=== PATIENT | female | born 1990 | race Caucasian/White ===

== ENCOUNTER 2023-01-20 08:31 | Outpatient (OUT) | payer BC, SELFPAY | END 2023-01-20 08:32 | disposition home or self-care (01) | LOC: PST 08:31 | PROVIDERS: Visit Provider Surgery | DX: Z01.818 Encounter for other preprocedural examination (principal); K64.4 Residual hemorrhoidal skin tags ==

== ENCOUNTER 2023-01-21 10:22 | Day surgery (SDC) | payer BC, SELFPAY ==
--- NOTE | 2023-01-21 | OP_ITS ---
OPERATION DATE: ??01/21/2023 PREOPERATIVE DIAGNOSIS:? Irritated, elongated anal skin tag. POSTOPERATIVE DIAGNOSIS:? Irritated, elongated anal skin tag. PROCEDURE:? Excisional biopsy irritated anal skin tag. SURGEON:? Brain James M.D. ANESTHESIA:? Local with 0.5% Marcaine plain. ESTIMATED BLOOD LOSS:? Less than 1 mL. INDICATIONS AND CONSENT:? Patient is a 32-year-old female with a long history of irritated, elongated anal skin tag.? Indications, risks, benefits, alternatives of proceeding with incision under local anesthesia were explained extensively to the patient, including the risks of bleeding, infection, scarring, pain, recurrent and need for further surgery.? All of her questions were answered.? Informed consent was obtained.? PROCEDURE:? Patient was brought to the operating room, placed in the right lateral decubitus position.? The area was prepped and draped in the usual sterile fashion.? It was anesthetized with 0.5% Marcaine plain.? The area was excised with needle tip electrocautery.? The base was closed with a 3-0 chromic suture.? There was good hemostasis.? Patient tolerated procedure well, was discharged home in good condition. CC:? Patient?s family physician GLORIA
[2023-01-21 10:42] VITALS: BP 159/91; PULSE 83; RESP 18; TEMP 36.4; O2SAT 95
[2023-01-21 12:02] VITALS: BP 119/79; BP 124/58; PULSE 70; PULSE 78; RESP 18; O2SAT 96
[2023-01-21] MEDS: BUPIVACAINE HCL 0.5% PF 50 MG/10 ML VIAL INJ (12:13)
== END 2023-01-21 12:14 | disposition home or self-care (01) ==
PROVIDERS: PCP Family Medicine; Visit Provider Surgery
PROC: (CPT 46220; principal; 2023-01-21 11:05)
DX: K64.4 Residual hemorrhoidal skin tags (principal); K21.9 Gastro-esophageal reflux disease without esophagitis; E03.9 Hypothyroidism, unspecified; E66.01 Morbid (severe) obesity due to excess calories; Z68.43 Body mass index [BMI] 50.0-59.9, adult; G47.33 Obstructive sleep apnea (adult) (pediatric); E11.9 Type 2 diabetes mellitus without complications; I10 Essential (primary) hypertension; M47.816 Spondylosis without myelopathy or radiculopathy, lumbar region; Z79.84 Long term (current) use of oral hypoglycemic drugs
CPT/HCPCS: 46220; 88304

== ENCOUNTER 2023-03-08 02:52 | Emergency (ER) | payer BC, SELFPAY ==
[2023-03-08 02:56] VITALS: BP 142/91; PULSE 104; RESP 18; TEMP 37.1; O2SAT 98; BMI 52.2
--- NOTE | 2023-03-08 03:01 | XR_ITS ---
[place] [id number] Patient Name: MURALI EMERSON MRN: [id number] date: 1990 Sex: F Assigned Patient Location: ER Current Patient Location: ER Accession/Order Number: [id number] Exam Date: 03/08/2023 03:05 Report Date: 03/08/2023 05:35 At the request of: CHIP CANDELARIA Procedure: XR chest 1V EXAM: XR chest 1V HISTORY: cough . Dyspnea since . COMPARISON: Chest x-ray, 11/05/2020. TECHNIQUE: AP upright portable chest x-ray. FINDINGS: The heart, mediastinum, lungs and pleural spaces appear within normal limits. The bony thorax is intact. XR/XR chest 1V IMPRESSION: Nonacute chest. No significant change. Electronically authenticated by: SUNDAR VARGHESE Date: 03/08/2023 05:35
--- OUTSIDE RECORDS SUMMARY | 2023-03-08 03:02 | XMS_ITS | CCD ---
Author Name Unknown Address [address] [place] [address] Organization [facility] Care Team Providers Care Oil Lease Buyer Name Role Phone Deedee Mariano Unavailable ROGELIO ., DR JERAMY Medina Admitting Unavailable MERCADO ., DR JERAMY Medina Attending Unavailable MERCADO ., DR JERAMY Medina Primary Care Unavailable MERCADO ., DR JERAMY Medina Primary Care Unavailable CHIP CANDELARIA Admitting Unavailable CHIP CANDELARIA Attending Unavailable CHIP CANDELARIA Consulting Unavailable MAYRA OCHOA Consulting Unavailable MERCADO ., DR JERAMY Medina Primary Care Unavailable GRIS, DR CHINA Pete Admitting Unavailable GRIS, DR CHINA Pete Attending Unavailable GRIS, DR CHINA Pete Consulting Unavailable MERCADO ., DR JERAMY Medina Admitting Unavailable MERCADO ., DR JERAMY Medina Attending Unavailable MERCADO ., DR JERAMY Medina Primary Care Unavailable MERCADO ., DR JERAMY Medina Consulting Unavailable MERCADO ., DR JERAMY Medina Admitting Unavailable MERCADO ., DR JERAMY Medina Attending Unavailable MERCADO ., DR JERAMY Medina Primary Care Unavailable MERCADO ., DR JERAMY Medina Consulting Unavailable Thiago Gambino. Primary Care Physician Thiago Gambino Attending Unavailable Thiago Gambino. Attending Unavailable Thiago Gambino. Attending Unavailable Thiago Gambino Attending Unavailable Thiago Gambino. Attending Unavailable Thiago Gambino. Attending Unavailable Thiago Gambino. Attending Unavailable Thiago Gambino Attending Unavailable Thiago Gambino Admitting Unavailable Brain TILLEY Attending Unavailable Brain TILLEY Attending Unavailable Thiago Gambino Attending Unavailable Allergies Allergy Classification Reported Allergen(s) Allergy Type Date of Onset Reaction(s) Facility (1 source) Amoxicillin Drug Allergy rash [employer] Other (2 sources) Amoxicillin Drug Allergy 03-06-201 4 [facility] Repository (2 sources) Penicillin; Translations: [penicillin] Drug Allergy Unknown (qualifier value) [facility] Medications Current Medications Medication Drug Class(es) Dates Sig (Normalized) Sig (Original) busPIRone hydrochloride 5 mg oral tablet (1 source) Start: 08-19-2022 take 1 tablet by mouth three times daily as needed for anxiety busPIRone 5 mg Tab See Instructions, TAKE 1 TABLET BY MOUTH 3 TIMES A DAY NEEDED FOR ANXIETY, # 90 tab(s), Refills(s) 0, Pharmacy: [id number], 180.3, cm, 06/23/22 16:07:00 EDT, Height/Length Dosing, 208.7, kg, 06/23/22 16:07:00 EDT, Weight Dosing Start Date: 08/19/22 Status: Ordered dapagliflozin 5 mg oral tablet (2 sources) Sodium-Glucose Cotransporter 2 Inhibitor Start: 09-02-2022 take 1 tablet by mouth once daily Farxiga 5 mg oral tablet See Instructions, TAKE 1 TABLET BY MOUTH EVERY DAY, # 90 tab(s), Refills(s) 1, Pharmacy: [facility]/pharmacy #[id number], 180.3, cm, 08/21/22 15:16:00 EDT, Height/Length Dosing, 208.7, kg, 06/23/22 16:07:00 EDT, Weight Dosing Start Date: 09/02/22 Status: Ordered Farxiga Active gabapentin 100 mg oral capsule (2 sources) Anti-epileptic Agent Start: 06-20-2022 take 1 capsule by mouth at bedtime gabapentin 100 mg Cap 100 mg = 1 cap(s), Oral, Bedtime, Refills(s) 0 Start Date: 06/20/22 Status: Ordered Gabapentin Activ e Knee Brace (1 source) Start: 09-16-2022 Knee Brace Kne e Brace, See Instructions, 1 EA, 0, L knee brace for knee pain, [facility], Supply, 180.3, cm, 09/16/22 9:08:00 EDT, Height/Length Dosing, 216.4, kg, 09/16/22 9:08:00 EDT, Weight Dosing Start Date: 09/16/22 Status: Ordered levothyroxine sodium 0.1 mg oral tablet (2 sources) l-Thyroxi ne Start: 10-08-2022 take 1 tablet by mouth once daily in the morning levothyroxine 100 mcg (0.1 mg) Tab See Instructions, TAKE 1 TABLET BY MOUTH EVERY DAY IN THE MORNING, # 90 tab(s), Refills(s) 3, Pharmacy: [id number], 180.3, cm, 09/16/22 9:08:00 EDT, Height/Length Dosing, 216.4, kg, 09/16/22 9:08:00 EDT, Weight Dosing Start Date: 10/08/22 Status: Ordered Levothyroxine So dium Active losartan potassium 50 mg oral tablet (1 source) Angiotensin 2 Receptor Deni Start: 09-02-2022 take 1 tablet by mouth once daily losartan 50 mg Tab 50 mg = 1 tab(s), Oral, Daily, # 90 tab(s), Refills(s) 1, [id number], 180.3, cm, 08/21/22 15:16:00 EDT, Height/Length Dosing, 208.7, kg, 06/23/22 16:07:00 EDT, Weight Dosing Start Date: 09/02/22 Status: Ordered metFORMIN hydrochloride 500 mg oral tablet (1 source) Biguanide Start: 09-22-2022 take 1 tablet by mouth twice daily metformin 500 mg Tab See Instructions, TAKE 1 TABLET BY MOUTH TWICE A DAY, # 180 tab(s), Refills(s) 0, Pharmacy: [id number], 180.3, cm, 09/16/22 9:08:00 EDT, Height/Length Dosing, 216.4, kg, 09/16/22 9:08:00 EDT, Weight Dosing Start Date: 09/22/22 Status: Ordered 24 hr metoprolol succinate 25 mg extended release oral tablet (2 sources) beta-Adrenergic Deni Start: 09-02-2022 take 1 tablet by mouth once daily metoprolol 25 mg ER Tab 25 mg = 1 tab(s), Oral, Daily, # 90 tab(s), Refills(s) 1, Pharmacy: [facility]/pharmacy #[id number], 180.3, cm, 08/21/22 15:16:00 EDT, Height/Length Dosing, 208.7, kg, 06/23/22 16:07:00 EDT, Weight Dosing Start Date: 09/02/22 Status: Ordered Metoprolol Succi rubén Active omeprazole 40 mg delayed release oral capsule (1 source) Proton Pump Inhibitor Start: 11-03-2022 take 1 capsule by mouth twice daily omeprazole 40 mg Cap-DR See Instructions, TAKE 1 CAPSULE BY MOUTH TWICE A DAY, # 180 cap(s), Refills(s) 0, Pharmacy: [id number] [id number], 180.3, cm, 10/16/22 15:30:00 EDT, Height/Length Dosing, 204.5, kg, 10/16/22 15:30:00 EDT, Weight Dosing Start Date: 11/03/22 Status: Ordered Ozempic (1 source) Ozempic Active phentermine hydrochloride 37.5 mg oral capsule (1 source) Sympathomimetic Amine Anorectic Start: 12-24-2022 take 1 capsule by mouth once daily Adipex-P 37.5 mg oral capsule 37.5 mg = 1 cap(s), Oral, Daily, # 30 cap(s), Refills(s) 2, Pharmacy: [facility] #[id number], 180.3, cm, 12/24/22 15:26:00 EDT, Height/Length Dosing, 183.3, kg, 12/24/22 15:26:00 EDT, Weight Dosing Start Date: 12/24/22 Status: Ordered Potassium (1 source) Potassium Active traZODone hydrochloride 50 mg oral tablet (1 source) Serotonin Reuptake Inhibitor Start: 11-11-2022 take 0.5 tablet by mouth once daily at bedtime traZODONE 50 mg Tab See Instructions, TAKE 1/2 TABLET BY MOUTH ONCE A DAY AT BEDTIME, # 15 tab(s), Refills(s) 0, Pharmacy: [id number] [id number], 180.3, cm, 10/16/22 15:30:00 EDT, Height/Length Dosing, 204.5, kg, 10/16/22 15:30:00 EDT, Weight Dosing Start Date: 11/11/22 Status: Ordered 24 hr venlafaxine 150 mg extended release oral capsule (2 sources) Serotonin and Norepinephrine Reuptake Inhibitor Start: 08-28-2022 take 1 capsule by mouth once daily venlafaxine 150 mg Cap-ER 150 mg = 1 cap(s), Oral, Daily, # 90 cap(s), Refills(s) 1, Pharmacy: [facility]/pharmacy #[id number], 180.3, cm, 08/21/22 15:16:00 EDT, Height/Length Dosing, 208.7, kg, 06/23/22 16:07:00 EDT, Weight Dosing Start Date: 08/28/22 Status: Ordered Effexor Active Problems Active Problems Problem Classification Problem Date Documented Date Episodic/Chronic Abdominal hernia (1 source) Umbilical hernia 12-24-2022 Episodic Abdominal pain (4 sources) Unspecified abdominal pain; Translations: [UNSPECIFIED ABDOMINAL PAIN] Onset: 06-11-2022 Episodic Adjustment disorders (1 source) Adjustment disorder with depressed mood in remission 06-20-2022 Chronic Diabetes mellitus without complication (1 source) Type 2 diabetes mellitus without complication; Translations: [Type 2 diabetes mellitus without complications] 08-21-2022 Chronic Esophageal disorders (1 source) Gastroesophageal reflux disease without esophagitis; Translations: [Gastro-esophageal reflux disease without esophagitis] 06-23-2022 Chronic Essential hypertension (1 source) Essential hypertension 06-23-2022 Chronic Headache; including migraine (1 source) Migraine 06-20-2022 Chronic Hemorrhoids (3 sources) Residual hemorrhoidal skin tags; Translations: [Residual hemorrhoidal skin tags] Onset: 12-26-2022 Episodic Hepatitis (1 source) Nonalcoholic steatohepatitis 06-20-2022 Chronic Immunizations and screening for infectious disease (2 sources) Contact with and (suspected) exposure to other viral communicable diseases; Translations: [Contact with and (suspected) exposure to other viral communicable diseases] Episodic Mood disorders (1 source) Major depressive disorder, single episode, unspecified; Translations: [MERCED DEPRESS D/O SINGLE EPIS UNS] Onset: 07-18-2021 Chronic Mycoses (1 source) Pityriasis versicolor 06-20-2022 Episodic Other connective tissue disease (1 source) Achilles tendinitis 06-20-2022 Episodic Other nervous system disorders (1 source) Carpal tunnel syndrome 06-20-2022 Chronic Other nutritional; endocrine; and metabolic disorders (1 source) Morbid (severe) obesity due to excess calories; Translations: [MORBID SEVERE OBES D/T EXCESS RYAN] Onset: 07-18-2021 Chronic Other nutritional; endocrine; and metabolic disorders (1 source) Body mass index (BMI) 60.0-69.9, adult; Translations: [BODY MASS INDEX BMI 60.0-69.9 ADULT] Onset: 07-18-2021 Chronic Other nutritional; endocrine; and metabolic disorders (2 sources) Body mass index 40+ - severely obese; Translations: [Body mass index (BMI) 50.0-59.9, adult] Onset: 12-26-2022 Chronic Other nutritional; endocrine; and metabolic disorders (1 source) Calorie overload 10-16-2022 Chronic Other nutritional; endocrine; and metabolic disorders (1 source) Metabolic syndrome X 06-20-2022 Chronic Other nutritional; endocrine; and metabolic disorders (1 source) Morbid obesity 06-20-2022 Chronic Residual codes; unclassified (1 source) Obstructive sleep apnea syndrome 06-20-2022 Chronic Residual codes; unclassified (1 source) Insomnia 10-16-2022 Episodic Spondylosis; intervertebral disc disorders; other back problems (1 source) Lumbar spondylosis 06-20-2022 Chronic Substance-related disorders (1 source) Nicotine dependence, cigarettes, uncomplicated; Translations: [NICOTINE DEPEND CIGARETTES UNCOMP] Onset: 06-13-2022 Chronic Thyroid disorders (5 sources) Hypothyroidism, unspecified; Translations: [Hypothyroidism] Onset: 10-09-2021 Chronic Past or Other Problems Problem Classification Problem Date Documented Date Episodic/Chronic Diabetes mellitus without complication (4 sources) Other abnormal glucose; Translations: [OTHER ABNORMAL GLUCOSE] Onset: 01-10-2022 Episodic Malaise and fatigue (1 source) Other fatigue; Translations: [OTHER FATIGUE] Onset: 10-10-2021 Episodic Nausea and vomiting (3 sources) Nausea with vomiting, unspecified; Translations: [NAUSEA WITH VOMITING UNSPECIFIED] Onset: 07-16-2021 Episodic Noninfectious gastroenteritis (1 source) Noninfective gastroenteritis and colitis, unspecified; Translations: [NONINFECTIVE GE AND COLITIS UNS] Onset: 07-18-2021 Episodic Other aftercare (1 source) Other longterm (current) drug therapy; Translations: [OTH [facility] CURRENT DRUG THERAPY] Onset: 07-18-2021 Episodic Viral infection (1 source) COVID-19 Results Test Name Value Interpretation Reference Range Facil ity Pathology Noteon 01-29-2023 Pathology Note [id number]#1.00TIFF [facility] Operative Reporton Operative Report [id number]#1.00TIFF [facility] Insurance Correspondenceon 1 03-02-2022 Insurance Correspondence [id number]#1.00TIFF [facility] Consent for Procedure/Surger yon 12-29-2022 Consent for Procedure/Surgery [id number]#1.00TIFF [facility] Ambulatory Visit Summaryon 02-25-2022 Ambulatory Visit Summary MURALI DONATO :1990 Visit Date:12/26/2022 Ambulatory Visit Instructions Your Care Team Attending Physician - Brain TILLEY MD Primary Care Physician - Thiago Gambino MD This Is Your Medications List Contact prescribing physician if questions or concerns Misc Prescription (Knee Brace) busPIRone (busPIRone 5 mg Tab) dapagliflozin (Farxiga 5 mg oral tablet) gabapentin (gabapentin 100 mg Cap) levothyroxine (levothyroxine 100 mcg (0.1 mg) Tab) losartan (losartan 50 mg Tab) metformin (metformin 500 mg Tab) metoprolol (metoprolol 25 mg ER Tab) omeprazole (omeprazole 40 mg Cap-DR) phentermine (Adipex-P 37.5 mg oral capsule) trazodone (traZODONE 50 mg Tab) venlafaxine (venlafaxine 150 mg Cap-ER) Procedures Performed Tonsillectomy and adenoidectomy. Discharge Vitals Heart Rate (Peripheral) 80 Respiratory Rate 16 Blood Pressure 140/96 Height 180.3 cm Height 71 in Weight 184 kg Weight 404.8 lb BMI 56.6 What to do next Scheduled Follow-Up Appointments Thursday 4:15 PM EST With: Thiago Gambino MD Where: [facility] Ambulatory Visit Summaryon 02-23-2022 Ambulatory Visit Summary MURALI DONATO :1990 Visit Date:12/24/2022 Ambulatory Visit Instructions Your Diagnosis Hemorrhoids, unspecified hemorrhoid type Excessive dietary caloric intake Umbilical hernia BMI 50.0-59.9, adult Class 3 obesity Vaping-related disorder Your Care Team Attending Physician - Thiago Gambino MD Primary Care Physician - Thiago Gambino MD This Is Your Medications List phentermine (Adipex-P 37.5 mg oral capsule) Contact prescribing physician if questions or concerns Misc Prescription (Knee Brace) busPIRone (busPIRone 5 mg Tab) dapagliflozin (Farxiga 5 mg oral tablet) gabapentin (gabapentin 100 mg Cap) levothyroxine (levothyroxine 100 mcg (0.1 mg) Tab) losartan (losartan 50 mg Tab) metformin (metformin 500 mg Tab) metoprolol (metoprolol 25 mg ER Tab) omeprazole (omeprazole 40 mg Cap-DR) trazodone (traZODONE 50 mg Tab) venlafaxine (venlafaxine 150 mg Cap-ER) Procedures Performed T and A (tonsillectomy and adenoidectomy) postoperative education. Discharge Vitals Temperature (Temporal Artery) 36.7 ?C Heart Rate (Peripheral) 80 Respiratory Rate 16 Blood Pressure 140/86 Height 180.3 cm Height 71 in Weight 183.34 kg Weight 403.348 lb BMI 56.4 What to do next Scheduled Follow-Up Appointments Thursday 2:20 PM EDT With: ERIKA ZULETA, Brain Pete Where: General Surgery E[facility] Normal [address] [place], [place] [address]- \.br\ Medications\.br\ What How Much When Why Instructions\.br\ Unchanged phentermine (Adipex-P 37.5 mg oral capsule) 1 Capsules By Mouth Every day Pickup at [facility] #[id number]\.br\ Unchanged busPIRone (busPIRone 5 mg Tab) See instructions TAKE 1 TABLET BY MOUTH 3 TIMES A DAY NEEDED FOR ANXIETY Contact prescribing physician if questions or concerns \.br\ Unchanged dapagliflozin (Farxiga 5 mg oral tablet) See instructions TAKE 1 TABLET BY MOUTH EVERY DAY Contact prescribing physician if questions or concerns \.br\ Unchanged gabapentin (gabapentin 100 mg Cap) 1 Capsules By Mouth At bedtime Contact prescribing physician if questions or concerns \.br\ Unchanged levothyroxine (levothyroxine 100 mcg (0.1 mg) Tab) See instructions TAKE 1 TABLET BY MOUTH EVERY DAY IN THE MORNING Contact prescribing physician if questions or concerns \.br\ Unchanged losartan (losartan 50 mg Tab) 1 Tablets By Mouth Every day Contact prescribing physician if questions or concerns \.br\ Unchanged metformin (metformin 500 mg Tab) See instructions TAKE 1 TABLET BY MOUTH TWICE A DAY Contact prescribing physician if questions or concerns \.br\ Unchanged metoprolol (metoprolol 25 mg ER Tab) 1 Tablets By Mouth Every day Contact prescribing physician if questions or concerns \.br\ Unchanged Misc Prescription (Knee Brace) See instructions Knee pain L knee brace for knee pain Contact prescribing physician if questions or concerns \.br\ Unchanged omeprazole (omeprazole 40 mg Cap-DR) See instructions TAKE 1 CAPSULE BY MOUTH TWICE A DAY Contact prescribing physician if questions or concerns \.br\ Unchanged trazodone (traZODONE 50 mg Tab) See instructions TAKE 1/ 2 TABLET BY MOUTH ONCE A DAY AT BEDTIME Contact prescribing physician if questions or concerns \.br\ Unchanged venlafaxine (venlafaxine 150 mg Cap-ER) 1 Capsules By Mouth Every day Contact prescribing physician if questions or concerns \.br\ Pharmacy Information\.br\ [facility] #[id number]: [address], [place] [id number] [phone]\.br\ Medications and Immunizations Administered\.br\ Not Given\.br\ influenza virus vaccine, inactivated, Patient Refuses\.br\ Allergies\.br\ penicillin (Unknown)\.br\ Problems\.br\ Ongoing - Any problem that you are currently receiving treatment for.\.br\ Achilles tendonitis\.br\ Adjustment disorder with depressed mood in remission\.br\ Carpal tunnel syndrome\.br\ Excessive dietary caloric intake\.br\ Gastroesophageal reflux disease without esophagitis\.br\ Hemorrhoids\.br\ Hypothyroidism\.br \ Insomnia\.br\ Metabolic syndrome\.br\ Migraines\.br\ Morbid obesity\.br\ WATTERS (nonalcoholic steatohepatitis)\. br\ Obstructive sleep apnea\.br\ Primary hypertension\.br\ Spondylosis of lumbar spine\.br\ Tinea versicolor\.br\ Type 2 diabetes mellitus without complication, without long-term current use of insulin\.br\ Umbilical hernia\.br\ Patient Survey\.br\ You may receive a survey via text or e-mail asking about your office visit. Please share your experience with us by completing your survey. We appreciate your feedback and thank you for choosing us for your care.\.br\ \.br\ [facility] Ambulatory Visit Summary MURALI DONATO :1990 Visit Date:12/24/2022 Ambulatory Visit Instructions Your Diagnosis Hemorrhoids, unspecified hemorrhoid type Excessive dietary caloric intake Umbilical hernia Your Care Team Attending Physician - Thiago Gambino MD. Primary Care Physician - Thiago Gambino MD. This Is Your Medications List [facility] Prescription (Knee Brace) busPIRone (busPIRone 5 mg Tab) dapagliflozin (Farxiga 5 mg oral tablet) gabapentin (gabapentin 100 mg Cap) levothyroxine (levothyroxine 100 mcg (0.1 mg) Tab) losartan (losartan 50 mg Tab) metformin (metformin 500 mg Tab) metoprolol (metoprolol 25 mg ER Tab) omeprazole (omeprazole 40 mg Cap-DR) phentermine (Adipex-P 37.5 mg oral capsule) trazodone (traZODONE 50 mg Tab) venlafaxine (venlafaxine 150 mg Cap-ER) Procedures Performed T and A (tonsillectomy and adenoidectomy) postoperative education. Discharge Vitals Temperature (Temporal Artery) 36.7 ?C Heart Rate (Peripheral) 80 Respiratory Rate 16 Blood Pressure 140/86 Height 180.3 cm Height 71 in Weight 183.34 kg Weight 403.348 lb BMI 56.4 What to do next Scheduled Follow-Up Appointments Thursday 2:20 PM EDT With: Brain TILLEY MD Where: General Surgery [facility] [address] [place] [address]- \.br\ Medications\.br\ What How Much When Why Instructions\.br\ Unchanged busPIRone (busPIRone 5 mg Tab) See instructions TAKE 1 TABLET BY MOUTH 3 TIMES A DAY NEEDED FOR ANXIETY \.br\ Unchanged dapagliflozin (Farxiga 5 mg oral tablet) See instructions TAKE 1 TABLET BY MOUTH EVERY DAY \.br\ Unchanged gabapentin (gabapentin 100 mg Cap) 1 Capsules By Mouth At bedtime\.br\ Unchanged levothyroxine (levothyroxine 100 mcg (0.1 mg) Tab) See instructions TAKE 1 TABLET BY MOUTH EVERY DAY IN THE MORNING \.br\ Unchanged losartan (losartan 50 mg Tab) 1 Tablets By Mouth Every day\.br\ Unchanged metformin (metformin 500 mg Tab) See instructions TAKE 1 TABLET BY MOUTH TWICE A DAY \.br\ Unchanged metoprolol (metoprolol 25 mg ER Tab) 1 Tablets By Mouth Every day\.br\ Unchanged Misc Prescription (Knee Brace) See instructions Knee pain L knee brace for knee pain \.br\ Unchanged omeprazole (omeprazole 40 mg Cap-DR) See instructions TAKE 1 CAPSULE BY MOUTH TWICE A DAY \.br\ Unchanged phentermine (Adipex-P 37.5 mg oral capsule) 1 Capsules By Mouth Every day\.br\ Unchanged trazodone (traZODONE 50 mg Tab) See instructions TAKE 1/ 2 TABLET BY MOUTH ONCE A DAY AT BEDTIME \.br\ Unchanged venlafaxine (venlafaxine 150 mg Cap-ER) 1 Capsules By Mouth Every day\.br\ Allergies\.br\ penicillin (Unknown)\.br\ Problems\.br\ Ongoing - Any problem that you are currently receiving treatment for.\.br\ Achilles tendonitis\.br\ Adjustment disorder with depressed mood in remission\.br\ Carpal tunnel syndrome\.br\ Excessive dietary caloric intake\.br\ Gastroesophageal reflux disease without esophagitis\.br\ Hemorrhoids\.br\ Hypothyroidism\.br \ Insomnia\.br\ Metabolic syndrome\.br\ Migraines\.br\ Morbid obesity\.br\ WATTERS (nonalcoholic steatohepatitis)\. br\ Obstructive sleep apnea\.br\ Primary hypertension\.br\ Spondylosis of lumbar spine\.br\ Tinea versicolor\.br\ Type 2 diabetes mellitus without complication, without long-term current use of insulin\.br\ Umbilical hernia\.br\ Patient Survey\.br\ You may receive a survey via text or e-mail asking about your office visit. Please share your experience with us by completing your survey. We appreciate your feedback and thank you for choosing us for your care.\.br\ \.br\ [facility] Medicine Office/Clini c Noteon 12-24-2022 Family Medicine Office/Clinic Note HPI Staff Murali is a 32 year old female presenting for acute visit Acute: evaluate for possible hernia umbilical area Noticed it in the last 2 weeks, doesn't hurt but if coughs or laughs hard feels a popping sensation. A few years ago was tested due to a gallbladder attack and was told she had a hernia in that area. Can't recall specifically when that was flu: refused questions/concerns : there's a message to refill her adipex History of Present Illness See staff HPI. Pt was told that she had an umbilical hernia. NO pain just feels a popping. - Seeing GI for her hemorrhoids thursday. - Needs refill on her adipex. Review of Systems PHQ Score Initial Depression Screen Score: 0 Physical Exam Vitals & Measurements T: 36.7 ?C(Temporal Artery) HR: 80(Peripheral) RR: 16 BP: 140/86 SpO2: 98% HT: 71 in HT: 180.3 cm WT: 183.34 kg WT: 403.348 lb BMI: 56.4 General: alert, no acute distress ENMT: oral mucosa moist, Cardiovascular: regular rate and rhythm, normal peripheral perfusion Respiratory: Lungs CTA, respirations non labored Extremities: no deformity, no trauma Neurological: oriented x 4, LOC appropriate for age, CN II-XII intact, motor strength equal & normal bilaterally, speech normal Abdomen: Soft, Nontender, Non-distended, + BS, No hernia felt. Hard to appreciate 2/2 body habitus. Assessment/Plan 1. Hemorrhoids, unspecified hemorrhoid type (K64.9: Unspecified hemorrhoids) - Follow up with Gen Surg - NO issues at this time. 2. Excessive dietary caloric intake (R63.2: Polyphagia) - Will refill adipex today 3. Umbilical hernia (K42.9: Umbilical hernia without obstruction or gangrene) - NO hernia noted today. - Precautions discussed in detail. When to return discussed along with when to go to the ER. Pt verbalized understanding. - Pt will monitor for pain or BM changes. If these happen, U/S vs CT scan. Orders: phentermine, 37.5 mg = 1 cap(s), Oral, Daily, # 30 cap(s), Refills(s) 2, Pharmacy: [facility] #[id number], 180.3, cm, 12/24/22 15:26:00 EDT, Height/Length Dosing, 183.3, kg, 12/24/22 15:26:00 EDT, Weight Dosing Follow-up No qualifying data available Problem List/Past Medical History Ongoing Achilles tendonitis Adjustment disorder with depressed mood in remission Carpal tunnel syndrome Excessive dietary caloric intake Gastroesophageal reflux disease without esophagitis Hemorrhoids Hypothyroidism Insomnia Metabolic syndrome Migraines Morbid obesity WATTERS (nonalcoholic steatohepatitis) Obstructive sleep apnea Primary hypertension Spondylosis of lumbar spine Tinea versicolor Type 2 diabetes mellitus without complication, without long-term current use of insulin Umbilical hernia Historical No qualifying data Procedure/Surgical History T and A (tonsillectomy and adenoidectomy) postoperative education. Medications Adipex-P 37.5 mg oral capsule, 37.5 mg= 1 cap(s), Oral, Daily, 2 refills busPIRone 5 mg Tab, See Instructions Farxiga 5 mg oral tablet, See Instructions, 1 refills gabapentin 100 mg Cap, 100 mg= 1 cap(s), Oral, Bedtime Knee Brace, See Instructions levothyroxine 100 mcg (0.1 mg) Tab, See Instructions losartan 50 mg Tab, 50 mg= 1 tab(s), Oral, Daily, 1 refills metformin 500 mg Tab, See Instructions metoprolol 25 mg ER Tab, 25 mg= 1 tab(s), Oral, Daily, 1 refills omeprazole 40 mg Cap-DR, See Instructions traZODONE 50 mg Tab, See Instructions, Not taking venlafaxine 150 mg Cap-ER, 150 mg= 1 cap(s), Oral, Daily, 1 refills Allergies penicillin (Unknown) Social History Tobacco Never (less than 100 in lifetime) Tobacco Use:. Never, Current vaping or e-cigarette use Smokeless Tobacco Use:. Vaping, 12/24/2022 Family History Asthma: Mother. Diabetes mellitus type 1: Mother. Hypertension: Mother. Primary malignant neoplasm of colon: Father. Immunizations Vaccine Date Status Comments influenza virus vaccine, inactivated - Not Given Postpone due to refusal SARSCoV2 mRNA(toveronaer-tri s-sucros) vac 05/08/2021 Recorded SARSCoV2 mRNA(eulalioveronajaijenny s-sucros) vac 04/15/2021 Recorded hepatitis B pediatric vaccine 02/22/2008 Recorded Hep A, unspecified formulation 02/22/2008 Recorded hepatitis B pediatric vaccine 09/21/2007 Recorded diphtheria/pertuss is, acel/tetanus adult 08/19/2007 Recorded hepatitis B pediatric vaccine 08/19/2007 Recorded Hep A, unspecified formulation 08/19/2007 Recorded measles/mumps/rube lla virus vaccine 07/13/2001 Recorded DTaP, unspecified formulation 03/13/1995 Recorded measles/mumps/rube lla virus vaccine 07/16/1992 Recorded Hib, unspecified formulation 07/16/1992 Recorded Hib, unspecified formulation 09/27/1990 Recorded Normal [facility] Comment on above: Result Comment: Elec tronically Signed By: Immanuel ZULETA, Thiago Tirado\.br\Date and Time Signed: 12/24/22 15:46 EDT Ambulatory Visit Summaryon 1 Ambulatory Visit Summary MURALI DONATO :1990 Visit Date:12/04/2022 Ambulatory Visit Instructions Your Diagnosis Excessive dietary caloric intake Morbid obesity BMI 50.0-59.9, adult Your Care Team Attending Physician - Thiago Gambino MD Primary Care Physician - Thiago Gambino MD This Is Your Medications List phentermine (Adipex-P 37.5 mg oral capsule) Contact prescribing physician if questions or concerns Misc Prescription (Knee Brace) busPIRone (busPIRone 5 mg Tab) dapagliflozin (Farxiga 5 mg oral tablet) gabapentin (gabapentin 100 mg Cap) levothyroxine (levothyroxine 100 mcg (0.1 mg) Tab) losartan (losartan 50 mg Tab) metformin (metformin 500 mg Tab) metoprolol (metoprolol 25 mg ER Tab) omeprazole (omeprazole 40 mg Cap-DR) trazodone (traZODONE 50 mg Tab) venlafaxine (venlafaxine 150 mg Cap-ER) Procedures Performed T and A (tonsillectomy and adenoidectomy) postoperative education. Discharge Vitals Temperature (Temporal Artery) 36.4 ?C Heart Rate (Peripheral) 74 Respiratory Rate 14 Blood Pressure 132/80 Height 180.3 cm Height 71 in Weight 188.8 kg Weight 415.36 lb BMI 58.08 What to do next Scheduled Follow-Up Appointments Thursday 3:15 PM EST With: Immanuel ZULETA, Thiago Tirado Where: [facility] Noteon 12-04-2022 [facility] Office/Clinic Note HPI Staff Murali is a 32 year old female presenting for follow up weight Weight management Sleeping well:No, Having problems falling asleep tried trazadone but didn't like it Chest pain:No Tremors:No Headaches:No Heart fluttering:No Blurred Vision:No Weight last visit: 204.5kg/449lbs Weight this visit:188.8kg/415l bs flu: refused questions/concerns : History of Present Illness - Per staff HPI - Hemorrhoids would like to have them removed. Review of Systems PHQ Score Initial Depression Screen Score: 0 Physical Exam Vitals & Measurements T: 36.4 ?C(Temporal Artery) HR: 74(Peripheral) RR: 14 BP: 132/80 SpO2: 97% HT: 71 in HT: 180.3 cm WT: 188.8 kg WT: 415.36 lb BMI: 58.08 General: alert, no acute distress ENMT: oral mucosa moist, Cardiovascular: regular rate and rhythm, normal peripheral perfusion Respiratory: Lungs CTA, respirations non labored Extremities: no deformity, no trauma Neurological: oriented x 4, LOC appropriate for age, CN II-XII intact, motor strength equal & normal bilaterally, speech normal Abdomen: Soft, Nontender, Non-distended, + BS Assessment/Plan 1. Excessive dietary caloric intake (R63.2: Polyphagia) - Amazing job on weight loss last 3 months. -We will continue Adipex -If the patient continues to lose weight we will continue to fill the Adipex. Ordered: [facility] [place] [facility] [place] 2. Morbid obesity (E66.01: Morbid (severe) obesity due to excess calories) - Diet and exercise advised Ordered: [facility] [place] [facility] [place] 3. BMI 50.0-59.9, adult (Z68.43: Body mass index [BMI] 50.0-59.9, adult) BMI education given. Ordered: [facility] [place] [facility] Ref[place] 4. Hemorrhoids (K64.9: Unspecified hemorrhoids) Would like them removed by surgery Ordered: [facility] [place] [facility] Ref[place] Orders: phentermine, 37.5 mg = 1 cap(s), Oral, Daily, # 30 cap(s), Refills(s) 2, Pharmacy: [facility] #[id number], 180.3, cm, 12/04/22 16:01:00 EDT, Height/Length Dosing, 188.8, kg, 12/04/22 16:01:00 EDT, Weight Dosing Follow-up No qualifying data available Problem List/Past Medical History Ongoing Achilles tendonitis Adjustment disorder with depressed mood in remission Carpal tunnel syndrome Excessive dietary caloric intake Gastroesophageal reflux disease without esophagitis Hemorrhoids Hypothyroidism Insomnia Metabolic syndrome Migraines Morbid obesity WATTERS (nonalcoholic steatohepatitis) Obstructive sleep apnea Primary hypertension Spondylosis of lumbar spine Tinea versicolor Type 2 diabetes mellitus without complication, without long-term current use of insulin Historical No qualifying data Procedure/Surgical History T and A (tonsillectomy and adenoidectomy) postoperative education. Medications Adipex-P 37.5 mg oral capsule, 37.5 mg= 1 cap(s), Oral, Daily, 2 refills busPIRone 5 mg Tab, See Instructions Farxiga 5 mg oral tablet, See Instructions, 1 refills gabapentin 100 mg Cap, 100 mg= 1 cap(s), Oral, Bedtime Knee Brace, See Instructions levothyroxine 100 mcg (0.1 mg) Tab, See Instructions losartan 50 mg Tab, 50 mg= 1 tab(s), Oral, Daily, 1 refills metformin 500 mg Tab, See Instructions metoprolol 25 mg ER Tab, 25 mg= 1 tab(s), Oral, Daily, 1 refills omeprazole 40 mg Cap-DR, See Instructions traZODONE 50 mg Tab, See Instructions, Not taking venlafaxine 150 mg Cap-ER, 150 mg= 1 cap(s), Oral, Daily, 1 refills Allergies penicillin (Unknown) Social History Tobacco Never (less than 100 in lifetime) Tobacco Use:. Never, Current vaping or e-cigarette use Smokeless Tobacco Use:. Vaping, 12/04/2022 Family History Asthma: Mother. Diabetes mellitus type 1: Mother. Hypertension: Mother. Primary malignant neoplasm of colon: Father. Immunizations Vaccine Date Status Comments influenza virus vaccine, inactivated - Not Given Postpone due to refusal SARSCoV2 mRNA(tozinamer-tri s-sucros) vac 05/08/2021 Recorded SARSCoV2 mRNA(tozinamer-tri s-sucros) vac 04/15/2021 Recorded hepatitis B pediatric vaccine 02/22/2008 Recorded Hep A, unspecified formulation 02/22/2008 Recorded hepatitis B pediatric vaccine 09/21/2007 Recorded diphtheria/pertuss is, acel/tetanus adult 08/19/2007 Recorded hepatitis B pediatric vaccine 08/19/2007 Recorded Hep A, unspecified formulation 08/19/2007 Recorded measles/mumps/rube lla virus vaccine 07/13/2001 Recorded DTaP, unspecified formulation 03/13/1995 Recorded measles/mumps/rube lla virus vaccine 07/16/1992 Recorded Hib, unspecified formulation 07/16/1992 Recorded Hib, unspecified formulation 09/27/1990 Recorded Normal [facility] Comment on above: Result Comment: Elec tronically Signed By: Immanuel ZULETA, Thiago Tirado\.br\Date and Time Signed: 12/04/22 16:30 EDT Family Medicine Office/Clini c Noteon 10-16-2022 [facility] Office/Clinic Note Chief Complaint follow up weight HPI Staff Patient presents for one month follow up weight Weight management Sleeping well:no, but it's due to the adipex, it wires her up Chest pain:No Tremors:No Headaches:No Heart fluttering:Yes Blurred Vision:No Weight last visit:216.4kg/475. 9lbs Weight this visit:204.5kg/449l bs questions/concerns : needs the adipex refilled History of Present Illness Please see staff HPI Review of Systems PHQ Score Initial Depression Screen Score: 0 Physical Exam Vitals & Measurements T: 36.8 ?C(Oral) HR: 84(Peripheral) RR: 14 BP: 136/82 SpO2: 95% HT: 71 in HT: 180.3 cm WT: 204.5 kg WT: 449.9 lb BMI: 62.91 General: alert, no acute distress ENMT: oral mucosa moist, Cardiovascular: regular rate and rhythm, normal peripheral perfusion Respiratory: Lungs CTA, respirations non labored Extremities: no deformity, no trauma Neurological: oriented x 4, LOC appropriate for age, CN II-XII intact, motor strength equal & normal bilaterally, speech normal Abdomen: Soft, Nontender, Non-distended, + BS Assessment/Plan 1. Excessive dietary caloric intake (R63.2: Polyphagia) - Impressed with the weight loss -With Adipex -Continue with diet and exercise 2. Insomnia (G47.00: Insomnia, unspecified) - We will try trazodone to help with the insomnia 3. Vaping-related disorder (U07.0: Vaping-related disorder) - Please stop vaping 4. BMI 60.0-69.9, adult (Z68.44: Body mass index [BMI] 60.0-69.9, adult) - BMI education given 5. Class 3 obesity (E66.01: Morbid (severe) obesity due to excess calories) - As above 6. Primary hypertension (I10: Essential (primary) hypertension) - Controlled Orders: phentermine, 37.5 mg = 1 cap(s), Oral, Daily, # 30 cap(s), Refills(s) 0, Pharmacy: [facility] #[id number], 180.3, cm, 10/16/22 15:30:00 EDT, Height/Length Dosing, 204.5, kg, 10/16/22 15:30:00 EDT, Weight Dosing tirzepatide, 2.5 mg, SubCutaneous, qWeek, # 4 EA, Refills(s) 0, Pharmacy: [id number], 180.3, cm, 09/16/22 9:08:00 EDT, Height/Length Dosing, 216.4, kg, 09/16/22 9:08:00 EDT, Weight Dosing trazodone, 25 mg = 0.5 tab(s), Oral, Once a day (at bedtime), # 15 tab(s), Refills(s) 0, Pharmacy: [facility]/pharmacy #[id number], 180.3, cm, 10/16/22 15:30:00 EDT, Height/Length Dosing, 204.5, kg, 10/16/22 15:30:00 EDT, Weight Dosing Follow-up No qualifying data available Problem List/Past Medical History Ongoing Achilles tendonitis Adjustment disorder with depressed mood in remission Carpal tunnel syndrome Excessive dietary caloric intake Gastroesophageal reflux disease without esophagitis Hypothyroidism Insomnia Metabolic syndrome Migraines Morbid obesity WATTERS (nonalcoholic steatohepatitis) Obstructive sleep apnea Primary hypertension Spondylosis of lumbar spine Tinea versicolor Type 2 diabetes mellitus without complication, without long-term current use of insulin Historical No qualifying data Procedure/Surgical History T and A (tonsillectomy and adenoidectomy) postoperative education. Medications Adipex-P 37.5 mg oral capsule, 37.5 mg= 1 cap(s), Oral, Daily busPIRone 5 mg Tab, See Instructions Farxiga 5 mg oral tablet, See Instructions, 1 refills gabapentin 100 mg Cap, 100 mg= 1 cap(s), Oral, Bedtime Knee Brace, See Instructions levothyroxine 100 mcg (0.1 mg) Tab, See Instructions losartan 50 mg Tab, 50 mg= 1 tab(s), Oral, Daily, 1 refills metformin 500 mg Tab, See Instructions metoprolol 25 mg ER Tab, 25 mg= 1 tab(s), Oral, Daily, 1 refills omeprazole 40 mg Cap-DR, See Instructions traZODONE 50 mg Tab, 25 mg= 0.5 tab(s), Oral, Once a day (at bedtime) venlafaxine 150 mg Cap-ER, 150 mg= 1 cap(s), Oral, Daily, 1 refills Allergies penicillin (Unknown) Social History Tobacco Never (less than 100 in lifetime) Tobacco Use:. Never, Current vaping or e-cigarette use Smokeless Tobacco Use:. Vaping, 10/16/2022 Family History Asthma: Mother. Diabetes mellitus type 1: Mother. Hypertension: Mother. Primary malignant neoplasm of colon: Father. Immunizations Vaccine Date Status SARSCoV2 mRNA(tozinamer-tri s-sucros) vac 05/08/2021 Recorded SARSCoV2 mRNA(tozinamer-tri s-sucros) vac 04/15/2021 Recorded hepatitis B pediatric vaccine 02/22/2008 Recorded Hep A, unspecified formulation 02/22/2008 Recorded hepatitis B pediatric vaccine 09/21/2007 Recorded diphtheria/pertuss is, acel/tetanus adult 08/19/2007 Recorded hepatitis B pediatric vaccine 08/19/2007 Recorded Hep A, unspecified formulation 08/19/2007 Recorded measles/mumps/rube lla virus vaccine 07/13/2001 Recorded DTaP, unspecified formulation 03/13/1995 Recorded measles/mumps/rube lla virus vaccine 07/16/1992 Recorded Hib, unspecified formulation 07/16/1992 Recorded Hib, unspecified formulation 09/27/1990 Recorded Normal [facility] Comment on above: Result Comment: Elec tronically Signed By: Thiago Gambino MD\.br\Date and Time Signed: 10/16/22 15:57 EDT Physician Referralon 023 Physician Referral [id number]:127 Normal [facility] Ambulatory Visit Summaryon 0 09-16-2022 Ambulatory Visit Summary MURALI DONATO :1990 Visit Date:09/16/2022 Ambulatory Visit Instructions Your Diagnosis Type 2 diabetes mellitus without complication, without long-term current use of insulin Gastroesophageal reflux disease without esophagitis Knee pain Excessive dietary caloric intake BMI 60.0-69.9, adult Class 3 obesity Your Care Team Attending Physician - Thiago Gambino MD Primary Care Physician - Thiago Gambino MD This Is Your Medications List [facility] [place] Prescription (Knee Brace) phentermine (Adipex-P 37.5 mg oral capsule) tirzepatide (Mounjaro 2.5 mg/0.5 mL subcutaneous solution) Contact prescribing physician if questions or concerns busPIRone (busPIRone 5 mg Tab) dapagliflozin (Farxiga 5 mg oral tablet) gabapentin (gabapentin 100 mg Cap) levothyroxine (levothyroxine 100 mcg (0.1 mg) Tab) losartan (losartan 50 mg Tab) metformin (metformin 500 mg Tab) metoprolol (metoprolol 25 mg ER Tab) omeprazole (omeprazole 40 mg Cap-DR) ondansetron (ondansetron 4 mg Dis Tab) venlafaxine (venlafaxine 150 mg Cap-ER) [Image Removed: STOP]Stop taking these medications semaglutide (Ozempic 2 mg/3 mL (0.25 mg or 0.5 mg dose) subcutaneous solution) Procedures Performed T and A (tonsillectomy and adenoidectomy) postoperative education. Discharge Vitals Temperature (Oral) 36.8 ?C Heart Rate (Peripheral) 80 Respiratory Rate 14 Blood Pressure 120/84 Height 180.3 cm Height 71 in Weight 216.36 kg Weight 475.992 lb BMI 66.56 What to do next Scheduled Follow-Up Appointments 2022 3:20 PM EDT With: Immanuel ZULETA, Thiago Triado Where: [facility] [place] Invalid Interpretation Code Gastroesophageal reflux disease without esophagitis [facility] Noteon 09-16-2022 Family Medicine Office/Clinic Note Chief Complaint follow up weight managment HPI Staff One month follow up weight Weight management Got a gym membershipt and working out Sleeping well:Yes, 6-8 hours Chest pain:No Tremors:No Headaches:No Heart fluttering:Yes Blurred Vision:No but sees lots black dots, saw eye dr, didn't say much about it weight last visit: 485.00lbs weight this visit: 477lbs recent phq9- 3 current issues/concerns: wants to talk about getting off the ozempic, would like a knee brace and needs her levothyroxine refilled Has some spots Dr Mercado had rxed selsun blue and it's not working, can you find something to try as it's spreading to her neck and she's self conscious about it History of Present Illness Murali Donato is a 32-year-old female who presents today for a follow-up evaluation. The patient has lost 6 pounds. At her last visit, she weighed 457 pounds which she states was erroneous. She has been experiencing burping. She is currently taking omeprazole 40 mg twice a day. She would like a prescription for a knee brace with hinges. She has had left knee problems her entire life. The current brace she is using is inefficient. She reports lesions on her neck whih was diagnosed by Dr. Mercado as yeast infections from sweat. It started on her back and now it is on her neck. She was prescribed Selsun Blue, but it is not helping anymore. She sleeps with it overnight and showers it off in the morning. Review of Systems PHQ Score Initial Depression Screen Score: 0 Physical Exam Vitals & Measurements T: 36.8 ?C(Oral) HR: 80(Peripheral) RR: 14 BP: 120/84 SpO2: 97% HT: 71 in HT: 180.3 cm WT: 216.36 kg WT: 475.992 lb BMI: 66.56 General: alert, no acute distress Cardiovascular: regular rate and rhythm, normal peripheral perfusion Respiratory: Lungs CTA, respirations non labored Extremities: no deformity, no trauma Neurological: oriented x 4, LOC appropriate for age, CN II-XII intact, motor strength equal & normal bilaterally, speech normal Assessment/Plan 1. Type 2 diabetes mellitus without complication, without long-term current use of insulin (E11.9: Type 2 diabetes mellitus without complications) Since the Ozempic is causing her so much increased acid reflux despite being on PPI twice a day, we will have the patient switch over to Mounjaro. At that time, we will see if this helps with it, and we will continue treating to a goal of having an A1c of less than 7.0%. 2. Gastroesophageal reflux disease without esophagitis (K21.9: Gastro-esophageal reflux disease without esophagitis) This is uncontrolled at this time. Discussed medication or surgical options. The patient states that she is unable to get bypass surgery for this and because she is unable to do that, we will see if Nissin fundoplasty is possible. We will send her to [facility] for this. 3. Knee pain (M25.569: Pain in unspecified knee) The patient has been exercising a lot more lately and so because of this, she is having knee pain. She states that this is old and does well with the knee brace. We will order a knee brace for the patient. 4. Excessive dietary caloric intake (R63.2: Polyphagia) We will go ahead and try Adipex for this and see if this improves her dietary caloric intake. Discussed that one of the side effects is increased acid reflux and patient is aware of this. 5. BMI 60.0-69.9, adult (Z68.44: Body mass index [BMI] 60.0-69.9, adult) BMI education given. 6. Class 3 obesity (E66.01: Morbid (severe) obesity due to excess calories) As above. We will see the patient back in 1 month. Portions of this record may have been created with voice recognition artificial intelligence software, specifically [employer], [employer] and or [employer]. Substitutions may have occurred due to the inherent limitations of voice recognition and artificial intelligence software. ATTESTATION: Documentation services were performed after patient or guardian consented to allow Dru Gutierrez to record this visit. [employer] government affairs specialist and provider reviewed before signing. [place]: Geneva Gorman. Follow-up No qualifying data available Problem List/Past Medical History Ongoing Achilles tendonitis Adjustment disorder with depressed mood in remission Carpal tunnel syndrome Gastroesophageal reflux disease without esophagitis Hypothyroidism Metabolic syndrome Migraines Morbid obesity WATTERS (nonalcoholic steatohepatitis) Obstructive sleep apnea Primary hypertension Spondylosis of lumbar spine Tinea versicolor Type 2 diabetes mellitus without complication, without long-term current use of insulin Historical No qualifying data Procedure/Surgical History T and A (tonsillectomy and adenoidectomy) postoperative education. Medications Adipex-P 37.5 mg oral capsule, 37.5 mg= 1 cap(s), Oral, Daily busPIRone 5 mg Tab, See Instructions Farxiga 5 mg oral tablet, See Instructions, 1 refills gabapentin 1 (more content not included)... [facility] Comment on above: Result Comment: Elec tronically Signed By: Immanuel ZULETA, Thiago Tirado\.br\Date and Time Signed: 09/16/22 13:53 EDT\.br\Electronically Co-Signed By: Geneva Gorman\.br\Date and Time Co-Signed: 09/16/22 11:24 EDT Physician Referralon 023 Physician Referral [id number]:127 [facility] Family Medicine Office/Clini c Noteon 09-01-2022 Family Medicine Office/Clinic Note Chief Complaint follow up weight HPI Staff 4 week follow up weight started ozempic, tolerating well but gets nauseated every morning Weight management Sleeping well:Yes, 6-8 hours Chest pain:No Tremors:No Headaches:No Heart fluttering:Yes Blurred Vision:No weight last visit: 208.65kg/459.03 weight this visit: our scale cannot weight her and she says she's the same as before phq9: 3 questions/concerns : none History of Present Illness Murali Donato is a 32-year-old female who presents today for a 4 week follow-up on Ozempic. She reports she lost 10 pounds and gained them back. She attributes this to eating more food. She was logging her food but got lazy and gained the weight back. She states that Dr. Mercado tried to get her bariatric surgery in 2018, but her insurance would not cover it. 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 She notes that the thought of going to the gym is terrifying. She is experiencing decreased energy and fatigue after work which causes her to eat more. She cooks on Tuesdays and meal preps for the week. She made tacos this week. She cut down to 3 energy drinks per week. She drinks a lot of Redfox K juice. She would like to be referred to a chief talent officer again. She does not do any exercise. She is experiencing decreased hair growth and damaged hair. She only wears a ponytail at work. She has tried taking biotin for 1 year with no improvement. She has tried vitamins in the past with improvement. She uses Suave shampoo once per week. She has a history of sleep apnea. She does not have a CPAP machine. She notes her snoring is worsening and she recently woke herself up from snoring. Review of Systems PHQ Score Initial Depression Screen Score: 0 Physical Exam Vitals & Measurements T: 36.7 ?C(Oral) HR: 76(Peripheral) RR: 16 BP: 130/82 SpO2: 96% HT: 71 in HT: 180.3 cm General: alert, no acute distress, morbidly obese Cardiovascular: regular rate and rhythm, normal peripheral perfusion Respiratory: Lungs CTA, respirations non labored Extremities: no deformity, no trauma Neurological: oriented x 4, LOC appropriate for age, CN II-XII intact, motor strength equal & normal bilaterally, speech normal Assessment/Plan We will see the patient back in 1 month. 1. Vaping nicotine dependence, tobacco product (F17.290: Nicotine dependence, other tobacco product, uncomplicated) Encouraged the patient to stop vaping at this time. 2. Class 3 obesity (E66.01: Morbid (severe) obesity due to excess calories) Advised the patient to continue with diet and exercise. We will increase the Ozempic as the patient needs this for the type 2 diabetes, but discussed a diet and exercise plan with the patient in great detail. We will see the patient back in 1 month. 3. Type 2 diabetes mellitus without complication, without long-term current use of insulin (E11.9: Type 2 diabetes mellitus without complications) Again, increasing the Ozempic to try to help with the weight loss. Discussed the nausea and patient is doing much better with this. 4. Gastroesophageal reflux disease without esophagitis (K21.9: Gastro-esophageal reflux disease without esophagitis) This has worsened since starting the Ozempic, but is better than last time she has tried it. We will slowly adjust the Ozempic to help with this. 5. Obstructive sleep apnea (G47.33: Obstructive sleep apnea (adult) (pediatric)) We will send the patient for a sleep study with a CPAP as she is supposed to be on CPAP. Portions of this record may have been created with voice recognition artificial intelligence software, specifically [employer], [employer] and or [employer]. Substitutions may have occurred due to the inherent limitations of voice recognition and artificial intelligence software. ATTESTATION: Documentation services were performed after patient or guardian consented to allow [employer] to record this visit. [place] government affairs specialist and provider reviewed before signing. [place]: Emir Whitehead Follow-up No qualifying data available Problem List/Past Medical History Ongoing Achilles tendonitis Adjustment disorder with depressed mood in remission Carpal tunnel syndrome Gastroesophageal reflux disease without esophagitis Hypothyroidism Metabolic syndrome Migraines Morbid obesity WATTERS (nonalcoholic steatohepatitis) Obstructive sleep apnea Primary hypertension Spondylosis of lumbar spine Tinea versicolor Type 2 diabetes mellitus without complication, without long-term current use of insulin Historical No qualifying data Procedure/Surgical History T and A (tonsillectomy and adenoidectomy) postoperative education. Medications busPIRone 5 mg Tab, See Instructions Farxiga 5 mg oral tablet, 5 mg= 1 tab(s), Oral, Daily gabapentin 100 mg Cap, 100 mg= 1 cap(s), Oral, Bedtime levothyroxine 100 mcg (0.1 mg) Tab, 100 mcg= 1 tab(s), Oral, Daily losartan 50 mg Tab, 50 mg= 1 tab (more content not included)... Normal [facility] Comment on above: Result Comment: Elec tronically Signed By: Thiago Gambino MD\.br\Date and Time Signed: 09/01/22 12:47 EDT\.br\Electronically Co-Signed By: Emir Whitehead.br\Date and Time Co-Signed: 08/21/22 23:17 EDT Physician Referralon 023 Physician Referral [id number]. [id number]#1.00CD:127 Normal [facility] Physician Referral [id number]. [id number]#1.00CD:127 [facility] Physician Referral [id number]. [id number]#1.00CD:127 [facility] Formson 07-16-2022 Forms [id number]#1.00CD:127 [facility] Pre-Certification Formon Pre-Certification Form [id number]. [id number]#1.00CD:127 [facility] Coding Summary.on 06-26-2022 Coding Summary. CD:[id number] 0bWw+PGhlYWQ+PE1FV BRrE14qqBSrzF9cM5I MTElOSywgQVBQTElOS sGhtyTbCM5zpNDwCZM u IC8+HO5tBSMkHbhopV Bao7A8vFX3Y19qjg9t YQcliEC3BJOgCqAhlu vyt6hfpYu3EImkHklw OyBt ACMpkG20OYZ1iB79Ye 51oKIlrTWlc2peeKu7 TlPtCEMqBXK4eIqwDW apc2UtZTDbN49yrCCg c2U6 IGNvbGxhcHNlOyBlbX M2hX6vMAscnszyr4oq lymoTxp8jq01wKHzs9 Y6qOX8L4VbrqP8IFFo bGQg TtuwbEOMpT9qdvlrj4 xvcjogIzAwMDAwMDt0 AMd5TLUwgHfiRzKaAJ 56AZQ8VEHiyfDhA2Sz LWFs rCnsKtO5j3L9Lq0AI0 ZIFudpL0CZDBMDICpj dGQ+YS47ld28P5JdDn elTjy2RVOjJSM3gNY1 aD0n QRRvSUkla0C6dDK8Z3 TcgnXxni5rx8ylTSXd XTqyP58ozYMhv0B0QH DhbBQ3TLFeqOvbRvSg aG93 Oyc+SKPlvJfuh5PxAx yoo7duy7dugSq2Yoxy QIMtdoYjhYsmZMK8g0 GyAt1kZRChmSM2qQJ5 aD0i AfMiRbP6AFnzM845Dq QjjNStVvdtL86nI9Bx dXA+HXWgXvo0HKCicU jaVQ7cR9FqIGOzdilt bGVm dAnvKM4zTXXssmrfGH UphF1oCTVpA9u4KxEc DqS1IBdbM7BgWVGbbt zoOs91pM3vHwWgQhW8 MGlu E0PdegL1NAYdjGLyZB wtXBQ8I46fm5T8RIYa NXGnRUR4dGA4kE0ojM lnbjogbGVmdDsgdmVy dGlj IWraQVhsH653ALLydN snPkNvZGluZyBEYXRl OiAgMDUvMDQvMjAyMz wvdGQ+ZWLiVGQ0gQhs PSAn vKMfVQqsMr0xsJatoC hwSV2fHJZmuqalDODy bJ6pBBFsbCPncFvhPC 5lATPewmfvj007FyBh MHB0 OEMqsKGkC3JcuB7jQi CpQZNoXBKfB4YpaIHj OTcoL393KCyaQqC8KE EyooZpO4YlZYPyeNxb OiB0 k5Z7Ab4Eo1EgmxueS9 RhdHVzOiAgRmluYWw8 F6AhCauwmOP+PC90YW HyQB52MFg3WXZ6mRny PSdi HOZlX8MtpZ6dOkHxIP RkZGRkOyc+PHRhYmxl IHdpZHRoPScxMDAlJy RzzDzlEO0aFf8pKMKw LWNv xHsuqBLgIkOxm6qiEP IjRTvbVF6wnHcoR9Zx xWA8WUVcq2i0Gr99J6 2sI6SqdLE+PGNvbCB3 aWR0 tC6dPuSqPhC3BOqcK1 28VgBiuUBbHjlvu6sd b5zsgIn1PvA1CKNvdg WrgJunVSV8f7ZsDk76 Y29s IHdpZHRoPSIxNSUiIH QvjMbowg1emF8uDi9+ VVYnzFC5dOK0tY8kQy WdMmZ3LKrbK901KtGg cCIv Ztkgb7uke9zfyLi8Mi IwJSIgdmFsaWduPSJ0 h0GjXd05T4QocCdbl5 VqZad0pk39cXKio0Z3 bGU9 X9FsOMJnsmdypKUxvE syOX5nPAMwfpipUWKn bO9yYPOkZ0d6YiUcZm S9ZVbjG1TqwhG3DXEf bGQg YPVlbZGZmZ0wulujs5 xvcjogIzAwMDAwMDt0 VHy0YEHlyFneJuQnZI A3DlD4YWD6nJCeuB8d bGln ddyhrS6jHek+UGF0aW TotOQLVV3kYjrpwAW+ GIZkGES3cQhaERnpSE AehD1zFMEmT6b3QkBq LjA1 BOqxU5QpsaF3SKDxnW BsCFHdqSMXwB5gxdet v6cdcyegIgWmRSJvFI q4HNl8NGVxiRjfMfAq ZWZ0 WyO2JYU0oWJlaW1vzZ albjjyjC8sNmz+Qmly xKssIPS8ZQq2R1EiKv b1TCIcvUolJL5rwTCq ZGlu Zu5yoCuxpXzmCR0fKP Irgohva020ZtHkf6kr IXAckWVoEEscTLV8O4 1fh7N5BVUoPZGwQCA3 dGV4 uL8akPjgvryyqLAbbM sgdmVydGljYWwtYWxp P071LIEnmHrvZvJmEF v7R7QaBuk5ATSjuHsh ZT0n uECoIYiyMp7xiNtdbE owIG7qDINzapfym342 SwBey5vzONViuPWqUK rbIYT5I17hq0X6WSVz MDAw FIA9vUW9lV2ncXxngh ogbGVmdDsgdmVydGlj EJpiUPhdV545IKKmiJ esTcPdmEs2I3CzEhh4 ZCBz tUspJE1xiUPuQDcgWn 2wzMyldUfkZD7kUNPe sfrwu295DpSkl1mzWT AjuVKaJRsfUWP4N42u b3I6 OTHxXXSiQVA0yBN2gF 1hbGlnbjogbGVmdDsg dmVydGljYWwtYWxpZ2 46IHRvcDsnPlBhdGll bnQg KVaxCXn0Z5WfDjsbdL I+GA51RWGnTW50jOXu fJFeu4klpBk1YmFyEV RgOYJ8sIssYFvrk2Oq ZXIt I93paGXib8F3WCOgsA jrjRIuXjXvhEA3zZ6r EBlyixlwm9uhptwsBj iri3devt12sU77X13t IHdp ZHRoPSIzMCUiIHZhbG boon0zjJ5lSa4+PGNv oOV7mQO4dT2rSNTtIi T7UCgrM380HrXweVGo Pjxj a1mqe8gxeFt0MmY4HP OdhaDcaGsrQOM1p3Au Nv87R17rPUxyWNOzYP LrPTFsDAYnfQtxqn7q dG9w Ii8+URSkaEX6dBT7vV 5fCxBpZsU6SRjkE450 NsQyrOWyJrvhB35aN9 JvdXA+XQQkRaw2WAAr dHls VT1laQBlTVswWt2bCU B5ImVjOtCzYVvbI7Od FSEmqomdqibjsAL3RU PeDRPwqL05Ma1pcMbx MTBw rLVAxC7rkhqcb6himx rrEtZgAGWkXGl4CQi2 TMFtlHsqTkDqMXQ8Jo Q7ZWG0mPTyjZ3kiXnu bjog zF4sZ8MgFPKeptrvRq 88aS9cAiZpAdC9HIyr Oyc+PRHZL34HKBHLPX JBSDwvdGQ+PHRkIHN0 eWxl RQlfUWWhbF3iFGGsC2 q2SuKsRcG4JBztE3Ac UFYyxyevCs46lF1sBv KlMtQ0FQhyI8RgtuM9 IDEw sCRqJHhbDGL4J95fc8 H0VFThINGdOBA2pCQ7 pG4dsCfctchobFMruX sgdmVydGljYWwtYWxp Z246 TAAijShuXkY1CcRlTl P4CLJ9Z7CgIrx0UEKz dWicJB9tnJRwVYjqTg 6hcHicaEsqCZ8hILTa bjtw YNPdvE0nPRVohUQxcQ tjWU6gMMHtkrdtk956 TkTlUHR0OUCuiYTuL5 SekA2vJoNjDOZjBUGw O3Rl xHLtXFwmX354UMcdLe U2XISwhwVqS2UiQUAc pOspXgI4r5K6Lc0mBq BZZWFyczwvdGQ+PHRk IHN0 fWhvVBaqFUCbfT7pYR HuG2w9SpQiQcP7SMxk Y5NmJOLnmcjwEk07pM 0oXlAxWcX4TUdaN2Eg bnQ6 PBZbkOIgDIfoXCS1F4 0ow9Z6JOFhQRPjVEW8 nYA2yC1taZsjslmdaO VmdDsgdmVydGljYWwt YWxp L453XSQdrMcdYzJqwS FsZTwvdGQ+PHRkIHN0 mBzvYYzlSGTazZ1dWI TxY0m3ApZjRaE9FZda O3Bh XERzdshbNp96nV7dCt SnHtS2KEpnI5HuquH8 GAYziEAkESrgJDM3L7 0gl9B2GKViOXYuUAK5 dGV4 fX0mlJukbwhmaLXxoQ sgdmVydGljYWwtYWxp Z285TTGbnFkkFtxlQj LRei4vKH3cTlcuuME+ PC90 lz83S4RtKyqzPsj1NM GhTEC9wFK5cQ9rFVRz ETspw6Y7vYF3Q9Bumt Qdns6rl9fsDDMqPMhq Y29s tWMfp7P3PHIxzBE4HM MhoJafFsNtzE62Puv+ LCMjyPwys0RuAyrcx3 liu5jrmEk1ZjXiXHDk dmFs aYtfVRC5h3ScXr57E0 9sIHdpZHRoPSIzMCUi IVUacAhxkf4mbX2hFf 8+QJKbxAJ6lJD7kS8z MjAl GkL7WUtaY693OnMqyV UqBoocb2itp4anpXv9 IjIwJSIgdmFsaWduPS R8h6YyGq26B1ZmeOla b3Vw Ymm0cc98uMYtp4D0qN A5V8SrZHNcjjzdkRVb gEogXU1cCEWuxameIU NbcG7bVWJyD7c9CgBm LjA1 TJolI6FdilM7TCOwcC TgZWPdeURNzA3fmksu a0tmzdnvHkTsLZSrZH b1BJh1DYZssTxkSzUg ZWZ0 WnN5QHV9fSFpgK7dgR dtqeetzZ7eXlu+UGh5 m5oelXNeWQ5ywIA1BM 82WL57eZFdo1Y6fZC0 J3Bh XRCzuvfwvulahPI4TI BrUTIawX67Cq7rrCmr Ap2cGNWxSST4LKSbdF XbA2KgkC2dMjVbXYRf MDAw D0UfuZTqACvaM763YP aaOgC3CZFtyvSsD9Ok ZOVusOisIyD5d9P9Kw 0HHC97GF13BS55sCZh c3R5 iBT5V4EyOASqckncjf arkGZ9QQJpPUWlvU90 Qw8bkWlqMo5nQRHdTY F0NAXssWVbO8VhqC9h OiAj IPHwWCSvV2DleDEzKJ vaE577CGpiWcB9EJFx reSwC7VuIGVvwTnmZz F0e2E5Iw5HFx10QV14 ZD48 yGNhj7Z6dYG4E3BcFD MegtpacndtaTP4YZEi BRQlxR23Qh3zpTsyTz 7xZYFhDHK7XSMqkIUa O2Nv nH1mCrFlPDIvXWXzY3 QirYVjCKccP708FNgp UmJ8ONJrneBhF3PpWV DlkEleDpL4d7S0Rr2K YXll bdg2P0EdYcleiFP+PC 82VISuIJ42wUJgoQYf q3iguPh6VzHoCPBlUZ R4kMawTRtvv6YuTBXw Y29s tAMfq9W1 (more content not included)... Normal [facility] Auto Diffon 06-24-2022 Basophils/100 WBC (Bld) 0.4 % Normal 0.0-2.0 [facility] Comment on above: Order Comment: Order Added by Discern Expert. Performed By: #### 1 5352359, 48765575, 9300752, 6547947, 8490705, 981690280, 2263872 ####[facility] [address] [place] [address] Basophils/Leukocyte s Auto (Bld) [Pure # fraction] 0.0 E9/L Normal 0.0-0.2 [facility] Comment on above: Order Comment: Order Added by Discern Expert. Performed By: #### 1 1773782, 33595923, 4994342, 3552393, 6268629, 725056577, 3260118 ####[facility] [address] [place] [address] Eosinophils/100 WBC (Bld) 1.5 % Normal 0.0-8.0 [facility] Comment on above: Order Comment: Order Added by Discern Expert. Performed By: #### 1 6864691, 64185848, 6882276, 6393458, 5557748, 208113408, 8380736 ####[address] [place] [address] Eosinophils/Leukocy hawa Auto (Bld) [Pure # fraction] 0.1 E9/L Normal 0.0-0.5 [facility] Comment on above: Order Comment: Order Added by Discern Expert. Performed By: #### 1 3999773, 39633682, 8243525, 4867918, 1241954, 530329044, 0731407 ####[address] [address] Lymphocytes/100 WBC (Bld) 24.8 % Normal 14.0-50.0 [facility] Comment on above: Order Comment: Order Added by Discern Expert. Performed By: #### 1 6283375, 75919444, 0233878, 8337735, 3877639, 149193159, 7129374 ####[address] [address] Lymphocytes/Leukocy hawa Auto (Bld) [Pure # fraction] 2.4 E9/L Normal 1.0-4.0 [facility] Comment on above: Order Comment: Order Added by Discern Expert. Performed By: #### 1 4441156, 69708774, 5421509, 5123278, 1930128, 427212008, 0256198 ####[address] [address] Monocytes/100 WBC (Bld) 6.4 % Normal 4.0-14.0 [facility] Comment on above: Order Comment: Order Added by Discern Expert. Performed By: #### 1 2621681, 23939644, 1600872, 9593703, 2859940, 963972177, 8195606 ####[address] [place] [address] Monocytes/Leukocyte s Auto (Bld) [Pure # fraction] 0.6 E9/L Normal 0.2-1.0 [facility] Comment on above: Order Comment: Order Added by Discern Expert. Performed By: #### 1 9306628, 39449275, 9241513, 9522505, 3908018, 084165337, 9479000 ####[address] [place] [address] Neutrophils/100 WBC (Bld) 66.9 % Normal 36.0-75.0 [facility] Comment on above: Order Comment: Order Added by Discern Expert. Performed By: #### 1 2852419, 57519720, 0457270, 2991448, 6360596, 533980375, 1377752 ####[address] [address] Neutrophils/Leukocy hawa Auto (Bld) [Pure # fraction] 6.6 E9/L Normal 2.0-7.5 [facility] Comment on above: Order Comment: Order Added by Discern Expert. Performed By: #### 1 0012866, 19062912, 6793861, 4792337, 1751587, 633694650, 0104104 ####[address] [place] [address] CBC w/ Auto Diffon 3 Erythrocyte distribution width (RBC) [Ratio] 15.7 % High 10.9-14.2 [facility] Comment on above: Performed By: #### 1 1489193, 44389142, 5617555, 6803381, 6649566, 148362773, 8601296 ####[address] [place] [address] Hematocrit (Bld) [Volume fraction] 38.6 % Normal 34.0-46.0 [facility] Comment on above: Performed By: #### 1 7464162, 32201473, 9214986, 5377195, 6267048, 609145437, 1364146 ####[address] [place] [address] Hemoglobin (Bld) [Mass/Vol] 12.5 g/dL Normal 12.0-16.0 [facility] Comment on above: Performed By: #### 1 6374359, 22734136, 6890478, 8835362, 2938226, 504598810, 8853089 ####[address] [place] [address] MCH (RBC) [Entitic mass] 27.5 pg Normal 27.0-34.0 [facility] Comment on above: Performed By: #### 1 3271655, 21418493, 3921236, 6995956, 7080369, 537082169, 5578292 ####[address] [address] MCHC (RBC) [Mass/Vol] 32.4 g/dL Normal 31.4-36.0 [facility] Comment on above: Performed By: #### 1 8043379, 23955228, 0620170, 5792096, 0311255, 817460548, 0007493 ####[address] [address] MCV (RBC) [Entitic vol] 84.8 fL Normal 80.0-100.0 [facility] Comment on above: Performed By: #### 1 8571828, 43580808, 3302684, 3000966, 1695439, 529135805, 5972913 ####[address] [place] [address] Platelet mean volume (Bld) [Entitic vol] 8.9 fL Normal 6.4-10.8 [facility] Comment on above: Performed By: #### 1 7283537, 89095061, 8485558, 7608677, 6945594, 692147575, 8031156 ####[address] [place] [address] Platelets (Bld) [#/Vol] 315.0 E9/L Normal 150.0-500.0 [facility] Comment on above: Performed By: #### 1 9751006, 53642760, 1893460, 2334634, 9722868, 669884625, 1197619 ####[facility] [address] [place] [address] RBC (Bld) [#/Vol] 4.6 E12/L Normal 4.3-5.9 [facility] Comment on above: Performed By: #### 1 2469690, 18335233, 4270703, 5546933, 4270924, 398337628, 6785125 ####[address] [place] [address] WBC corrected for nucl RBC Auto (Bld) [#/Vol] 9.9 E9/L Normal 4.0-11.0 [facility] Comment on above: Performed By: #### 1 8447649, 19438634, 3546805, 2715525, 8046335, 008105487, 9301807 ####[facility] [address] [place] [address] CMPon 06-24-2022 Albumin [Mass/Vol] 4.1 g/dL Normal 3.3-5.0 [facility] Comment on above: Performed By: #### 1 5409129, 35015509, 8093572, 1737784, 3240461, 489777404, 0943366 ####[facility] [address] [place] [address] Albumin/Globulin (S) [Mass conc ratio] 1.2 Normal 1.1-2.2 [facility] Comment on above: Performed By: #### 1 5723534, 89634602, 7943921, 2027883, 6169462, 738764462, 7471527 ####[address] [place] [address] ALP [Catalytic activity/Vol] 62 Int._Unit/L Normal 21-98 [facility] Comment on above: Performed By: #### 1 8533590, 50640706, 0711308, 6959585, 2078068, 798565760, 1463737 ####[facility] [address] [place] [address] ALT No additional P-5'-P [Catalytic activity/Vol] 49 Int._Unit/L High 6-46 [facility] Comment on above: Performed By: #### 1 0450076, 35242618, 5343807, 7386613, 8193877, 009189447, 9023466 ####[facility] [address] [place] [address] Anion gap [Moles/Vol] 13 mmol/L Normal 6-16 [facility] Comment on above: Performed By: #### 1 9882522, 00895770, 1478556, 5346063, 3195866, 386840588, 7338238 ####[address] [place] [address] AST [Catalytic activity/Vol] 60 Int._Unit/L High 5-43 [facility] Comment on above: Performed By: #### 1 3673065, 12570390, 1000136, 6144424, 0920650, 386767254, 5824262 ####[address] [place] [address] Bilirubin [Mass/Vol] 0.5 mg/dL Normal 0.0-1.1 [facility] Comment on above: Performed By: #### 1 3444354, 94847566, 6270635, 0626866, 8773351, 550047552, 9223851 ####[facility] [address] [place] [address] Calcium [Mass/Vol] 9.4 mg/dL Normal 8.9-11.1 [facility] Comment on above: Performed By: #### 1 2223614, 85033801, 6996765, 0590677, 3360694, 645910844, 5950210 ####[facility] [address] [place] [address] Chloride [Moles/Vol] 99 mmol/L Low 101-111 [facility] Comment on above: Performed By: #### 1 5638517, 99180849, 2163299, 4285645, 4696921, 724410904, 6885573 ####[facility] [address] [place] [address] CO2 [Moles/Vol] 29 mmol/L Normal 21-31 [facility] Comment on above: Performed By: #### 1 2176747, 51146515, 7840584, 0686429, 1729818, 606693391, 6913272 ####[facility] [address] [place] [address] Creatinine [Mass/Vol] 0.7 mg/dL Normal 0.5-1.3 [facility] Comment on above: Performed By: #### 1 9163505, 83293444, 5787744, 4541735, 5220671, 786507921, 6711993 ####[facility] [address] [place] [address] Globulin (S) [Mass/Vol] 3.3 g/dL Normal 1.4-4.0 [facility] Comment on above: Performed By: #### 1 9786862, 19822016, 8365246, 9738470, 7758637, 907048416, 0833730 ####[facility] [address] [place] [address] Glucose [Mass/Vol] 116 mg/dL Normal 55-199 [facility] Comment on above: Result Comment: If t his glucose result represents a fasting glucose, interpretation should refer to the following reference range: 55-99 mg/dL Performed By: #### 1 7312898, 91087556, 0691951, 6387105, 0270837, 090411443, 2174511 ####[facility] [address] [place] [address] Potassium [Moles/Vol] 4.0 mmol/L Normal 3.5-5.3 [facility] Comment on above: Performed By: #### 1 3982063, 99815378, 1180617, 9776959, 6913491, 309975788, 2555231 ####[facility] [address] [place] [address] Protein [Mass/Vol] 7.4 g/dL Normal 6.0-7.8 [facility] Comment on above: Performed By: #### 1 4977745, 49959181, 0954485, 5458516, 0600278, 552018501, 3101824 ####[facility] [address] [place] [address] Sodium [Moles/Vol] 137 mmol/L Normal 135-145 [facility] Comment on above: Performed By: #### 1 1748440, 86120277, 4844283, 3571955, 8102823, 447159603, 7990512 ####[facility] [address] [place] [address] Urea nitrogen [Mass/Vol] 11 mg/dL Normal 5-21 [facility] Comment on above: Performed By: #### 1 5041437, 03853093, 5101835, 3339851, 7744349, 087023044, 1085944 ####[facility] [address] [place] [address] Urea nitrogen/Creatinine [Mass ratio] 16 No Units Normal 10-20 [facility] Comment on above: Performed By: #### 1 6512366, 01034920, 2459276, 8614089, 2365127, 875180709, 7954952 ####[facility] [address] [place] [address] Family Medicine Office/Clini c Noteon 06-24-2022 Family Medicine Office/Clinic Note Chief Complaint establish care, med refills, losing her hair HPI Staff new to me wants a general check up Establish Care: History: depression, migraines, GERD, HTN, hypothyroid,WATTERS, Metabolic disorder Last provider: Rogelio Any recent labs: Dec 2021 Health Maintenance UTD: Colonoscopy: never Mammogram: never Pelvic/Pap: couple years covid: (2) recent phq9-6 Acute: Current issues/complaints: discuss getting back on adipex. took self off ozempic due to sulfur burps been off it 2 mos and sulfur burps are gone, also losing her hair. Refills of metformin, farxiga and omprazole History of Present Illness Murali is a 31-year-old female who presents today for a follow-up evaluation of type 2 diabetes mellitus. Murali reports that she lost 40 pounds in 2 months while on Ozempic, but then plateaued. She was taking Ozempic for 1.5 years. She was getting sulfur burps once a week for 3 days at a time. She did not think it was acid reflux because it did not burn. It felt like she was shooting out of her mouth because the burp smelled so bad and tasted terrible. She has a history of GERD. She has experienced bloating. She has not been pulling her hair back as tight. She got biotin shampoo to help with her hair loss. She has lost 150 pounds off of Adipex in the past. She explains that she was starving herself. She was also doing hour long walks when she lost all of the weight. She got super depressed and gained all of her weight back. She has tried Contrave in the past, but she does not like it. She drinks a V8 every morning for breakfast and then does not eat again until dinnertime. She has been to nutrition classes before. She understands how to do a 2000-calorie and 1400-calorie diet. She weighed herself on a scale at home and was 460 pounds as of yesterday, 06/22/2022, morning. The patient notes that she would like to be healthy and does not want to early. The patient is currently taking Effexor. She states that this is the only antidepressant she has ever had in her life that has made her feel like a normal person. She has tried Wellbutrin in the past. Wellbutrin was the first antidepressant she was put on during her freshman year of college. She does not remember any side effects and was still depressed on Wellbutrin. She does not remember if she tried Lexapro. She has tried Zoloft in the past. She was resistant at first to taking Effexor, but it made her feel numb. She was unable to feel empathetic towards others on Effexor. She has tried hydroxyzine in the past, but did not like it. She was on BuSpar for 1.5 years, but it stopped working. She smokes marijuana once a month. She has taken kratom in the past and takes it every once in a while, but this is not a prescription. She went off of it for 6 months because she heard about other people having withdrawals from kratom. She was taking 15 at a time in the past. She only takes 2 when she does take it now. It just pops her up in the morning if she is having a really rough morning. She has sleep apnea. She does not use a CPAP machine and does not know where it is at. This morning she took Effexor, metoprolol, levothyroxine, and losartan. She takes gabapentin 100 mg during the day for anxiety and she likes it. She takes the gabapentin once a day as needed, She notes that right now her life is financially going well and her mental health is doing good. Review of Systems PHQ Score Initial Depression Screen Score: 1 Physical Exam Vitals & Measurements HR: 91(Peripheral) RR: 16 BP: 130/86 SpO2: 96% HT: 71 in HT: 180.34 cm WT: 208.65 kg WT: 459.03 lb BMI: 64.16 General: alert, no acute distress. Extreme morbid obesity. Cardiovascular: regular rate and rhythm, normal peripheral perfusion Respiratory: Lungs CTA, respirations non labored Extremities: no deformity, no trauma Neurological: oriented x 4, LOC appropriate for age, CN II-XII intact, motor strength equal & normal bilaterally, speech normal Assessment/Plan 1. Type 2 diabetes mellitus (E11.9: Type 2 diabetes mellitus without complications) We will start Mounjaro. We will refill metformin and Farxiga for the patient. We will get lab work to see how we need to best adjust the patient's medication. Discussed this in detail. 2. Adjustment disorder with depressed mood in remission (F43.21: Adjustment disorder with depressed mood) Patient states she is doing very well with her Effexor. We will continue as is. 3. Primary hypertension (I10: Essential (primary) hypertension) Patient is at goal at this time. Continue on the metoprolol and the losartan. 4. Hypothyroidism, unspecified type (E03.9: Hypothyroidism, unspecified) We will do a TSH today and we will continue the patient on her medication. We will adjust as needed based off of the labs. 5. Gastroesophageal reflux disease without esophagitis (K21.9: Gastro-esophageal reflux disease without esophagitis) At this time, patient is doing well on the omeprazole. Discussed (more content not included)... Normal [facility] Comment on above: Result Comment: Elec tronically Signed By: Thiago Gambino MD\.br\Date and Time Signed: 06/24/22 08:22 EDT\.br\Electronically Co-Signed By: Paris Casey\.br\Date and Time Co-Signed: 06/23/22 19:12 EDT [id number] 06-24-2022 HbA1c (Bld) [Mass fraction] 6.3 % High <=5.9 [facility] Comment on above: Performed By: #### 1 [id number], [id number], [id number], [id number], [id number], [id number] ####[facility] [address] [place] [address] Lipid Panelon 06-24-2022 Cholesterol [Mass/Vol] 182 mg/dL Normal 120-200 [facility] Comment on above: Performed By: #### 1 [id number], [id number], [id number], [id number], [id number], [id number], [id number] ####[facility] [address] [place] [address] Cholesterol in HDL [Mass/Vol] 35 mg/dL Invalid Interpretation Code [facility] Comment on above: Result Comment: HDL > or equal to 60 mg/dL: Low cardiovascular risk HDL < 40 mg/dL : High cardiovascular risk Performed By: #### 1 [id number], [id number], [id number], [id number], 8004804, [id number], [id number] ####[facility] [address] [place] [address] Cholesterol in LDL [Mass/Vol] 118 mg/dL Normal <=129 [facility] Comment on above: Performed By: #### 1 [id number], [id number], [id number], 9113902, 5341652, [id number], [id number] ####[facility] [address] [place] [address] Cholesterol in VLDL [Mass/Vol] 69 mg/dL High 7-40 [facility] Comment on above: Performed By: #### 1 [id number], [id number], [id number], [id number], [id number], [id number], [id number] ####[facility] [address] [place] [address] Triglyceride [Mass/Vol] 344 mg/dL High <=149 [facility] Comment on above: Performed By: #### 1 [id number], [id number], 2662126, 3432222, 8162415, [id number], [id number] ####[facility] [address] [place] [address] TSH With T4fr Reflexon 06-24 TSH Qn 2.27 m[IU]/L Normal 0.34-5.60 [facility] Comment on above: Performed By: #### 1 [id number], [id number], [id number], 0201809, 4986311, [id number], [id number] ####[facility] [address] [place] [address] eGFRon 06-24-2022 GFR/1.73 sq M.predicted among non-blacks MDRD (S/P/Bld) [Vol rate/Area] 118 mL/min/1.73 m2 Normal >=59 [facility] Comment on above: Order Comment: Order added by Discern Expert. Result Comment: Scrum Coach kyara kidney disease could be indicated at eGFR's of less than 60 mL/min/1.73m2. Kidney failure is indicated at less than 15 mL/min/1.73m2. Performed By: #### 1 [id number], [id number], 7031059, 6615225, [id number], [id number], [id number] ####[facility] [id number] [place] [address] Ambulatory Visit Summaryon 0 06-23-2022 Ambulatory Visit Summary MURALI DONATO :1990 Visit Date:06/23/2022 Ambulatory Visit Instructions Your Diagnosis Type 2 diabetes mellitus Adjustment disorder with depressed mood in remission Primary hypertension Hypothyroidism, unspecified type Gastroesophageal reflux disease without esophagitis WATTERS (nonalcoholic steatohepatitis) Obstructive sleep apnea BMI 60.0-69.9, adult Class 3 obesity Your Care Team Attending Physician - Thiago Gambino MD Primary Care Physician - Thiago Gambino MD This Is Your Medications List busPIRone (busPIRone 5 mg Tab) dapagliflozin (Farxiga 5 mg oral tablet) metformin (metformin 500 mg Tab) omeprazole (omeprazole 40 mg Cap-DR) tirzepatide (Mounjaro 2.5 mg/0.5 mL subcutaneous solution) Contact prescribing physician if questions or concerns gabapentin (gabapentin 100 mg Cap) levothyroxine (levothyroxine 100 mcg (0.1 mg) Tab) losartan (losartan 50 mg Tab) metoprolol (metoprolol 25 mg ER Tab) venlafaxine (venlafaxine 150 mg Cap-ER) [Image Removed: STOP]Stop taking these medications albuterol (Albuterol (Eqv-ProAir HFA) 90 mcg/inh inhalation aerosol) metoprolol (Metoprolol tartrate 25 mg Tab) semaglutide (Ozempic 8 mg/3 mL (2 mg dose) subcutaneous solution) Procedures Performed T and A (tonsillectomy and adenoidectomy) postoperative education. Discharge Vitals Heart Rate (Peripheral) 91 Respiratory Rate 16 Blood Pressure 130/86 Height 180.34 cm Height 71 in Weight 208.65 kg Weight 459.03 lb BMI 64.16 What to do next Scheduled Follow-Up Appointments Thursday. 2022 1:00 PM EDT With: Thiago Gambino MD Where: [facility] Ambulatory Visit Summary MURALI DONATO :1990 Visit Date:06/23/2022 Ambulatory Visit Instructions Your Diagnosis Type 2 diabetes mellitus Adjustment disorder with depressed mood in remission Primary hypertension Hypothyroidism, unspecified type Gastroesophageal reflux disease without esophagitis WATTERS (nonalcoholic steatohepatitis) Obstructive sleep apnea BMI 60.0-69.9, adult Class 3 obesity Your Care Team Attending Physician - Thiago Gambino MD Primary Care Physician - Thiago Gambino MD This Is Your Medications List busPIRone (busPIRone 5 mg Tab) dapagliflozin (Farxiga 5 mg oral tablet) metformin (metformin 500 mg Tab) omeprazole (omeprazole 40 mg Cap-DR) tirzepatide (Mounjaro 2.5 mg/0.5 mL subcutaneous solution) Contact prescribing physician if questions or concerns gabapentin (gabapentin 100 mg Cap) levothyroxine (levothyroxine 100 mcg (0.1 mg) Tab) losartan (losartan 50 mg Tab) metoprolol (metoprolol 25 mg ER Tab) venlafaxine (venlafaxine 150 mg Cap-ER) [Image Removed: STOP]Stop taking these medications albuterol (Albuterol (Eqv-ProAir HFA) 90 mcg/inh inhalation aerosol) metoprolol (Metoprolol tartrate 25 mg Tab) semaglutide (Ozempic 8 mg/3 mL (2 mg dose) subcutaneous solution) Procedures Performed T and A (tonsillectomy and adenoidectomy) postoperative education. Discharge Vitals Heart Rate (Peripheral) 91 Respiratory Rate 16 Blood Pressure 130/86 Height 180.34 cm Height 71 in Weight 208.65 kg Weight 459.03 lb BMI 64.16 What to do next Scheduled Follow-Up Appointments Thursday. 2022 1:00 PM EDT With: Thiago Gambino MD Where: [facility] Normal [facility] AMYLASEon 06-11-2022 Amylase [Catalytic activity/Vol] 53 U/L Normal 25-115 [facility] Comment on above: Performed By: #### A MY, CMP, LIPA #### [facility] [address] [address] [address] Luis Enrique De La Cruz CBC AUTO DIFFon 06-11-2022 BASO # 0.1 103/ul Normal 0.0-0.1 [facility] Comment on above: Performed By: #### C BC #### [facility] [address] [address] [address] Luis Enrique De La Cruz Basophils/100 WBC (Bld) 0.5 % Normal 0.2-2.0 [facility] Comment on above: Performed By: #### C BC #### [facility] [address] [place] [address] Dr. Luis Enrique De La Cruz EO # 0.2 103/ul Normal 0.0-0.7 [facility] Comment on above: Performed By: #### C BC #### [facility] [address] [place] [address] Dr. Luis Enrique De La Cruz Eosinophils/100 WBC (Bld) 2.1 % Normal 0.9-7.0 [facility] Comment on above: Performed By: #### C BC #### [facility] [address] [place] [address] Dr. Luis Enrique De La Cruz Erythrocyte distribution width (RBC) [Ratio] 14.7 % Normal 11.0-15.0 [facility] Comment on above: Performed By: #### C BC #### [facility] [address] [place] [address] Dr. Luis Enrique De La Cruz Hematocrit (Bld) [Volume fraction] 38.7 % Normal 36.0-48.0 [facility] Comment on above: Performed By: #### C BC #### [facility] [address] [place] [address] Dr. Luis Enrique De La Cruz Hemoglobin (Bld) [Mass/Vol] 12.7 g/dL Normal 12.0-16.0 [facility] Comment on above: Performed By: #### C BC #### [facility] [address] [place] [address] Dr. Luis Enrique De La Cruz IG # 0.03 10e3/ul Normal 0.00-0.03 [facility] Comment on above: Performed By: #### C BC #### [facility] [address] [place] [address] Dr. Luis Enrique De La Cruz IG % 0.3 % Normal 0.0-0.5 [facility] Comment on above: Performed By: #### C BC #### [facility] [address] [place] [address] Dr. Luis Enrique De La Cruz LYMPH # 2.8 103/ul Normal 1.2-3.8 [facility] Comment on above: Performed By: #### C BC #### [facility] [address] [place] [address] Dr. Luis Enrique De La Cruz Lymphocytes/100 WBC (Bld) 27.8 % Normal 20.5-60.0 [facility] Comment on above: Performed By: #### C BC #### [facility] [address] [place] [address] Dr. Luis Enrique De La Cruz MANUAL DIFF REQ NO Normal [facility] Comment on above: Performed By: #### C BC #### [facility] [address] [place] [address] Dr. Luis Enrique De La Cruz MCH (RBC) [Entitic mass] 28.2 pg Normal 26.7-34.0 [facility] Comment on above: Performed By: #### C BC #### [facility] [address] [place] [address] Dr. Luis Enrique De La Cruz MCHC (RBC) [Mass/Vol] 32.8 g/dL Normal 29.9-35.2 [facility] Comment on above: Performed By: #### C BC #### [facility] [address] [place] [address] Dr. Luis Enrique De La Cruz MCV (RBC) [Entitic vol] 85.8 fL Normal 81.0-99.0 [facility] Comment on above: Performed By: #### C BC #### [facility] [address] [place] [address] Dr. Luis Enrique De La Cruz MONO # 0.7 103/ul Normal 0.3-0.8 [facility] Comment on above: Performed By: #### C BC #### [facility] [address] [place] [address] Dr. Luis Enrique De La Cruz Monocytes/100 WBC (Bld) 7.2 % Normal 1.7-12.0 [facility] Comment on above: Performed By: #### C BC #### [facility] [address] [place] [address] Dr. Luis Enrique De La Cruz NEUT # 6.2 103/ul Normal 1.4-6.5 [facility] Comment on above: Performed By: #### C BC #### [facility] [address] [address] [address] Luis Enrique De La Cruz Neutrophils/100 WBC (Bld) 62.1 % Normal 43.0-75.0 [facility] Comment on above: Performed By: #### C BC #### [facility] [address] [place] [address] Dr. Luis Enrique De La Cruz Platelet mean volume (Bld) [Entitic vol] 9.8 fL Normal 9.5-13.5 [facility] Comment on above: Performed By: #### C BC #### [facility] [address] [place] [address] Dr. Luis Enrique De La Cruz PLT 322 103/ul Normal 150-450 [facility] Comment on above: Performed By: #### C BC #### [facility] [address] [place] [address] Dr. Luis Enrique De La Cruz RBC 4.51 106/ul Normal 4.20-5.40 [facility] Comment on above: Performed By: #### C BC #### [facility] [address] [place], [place] [id number] Dr. Luis Enrique De La Cruz WBC 9.9 103/ul Normal 4.0-11.0 [facility] Comment on above: Performed By: #### C BC #### [facility] [address] [place] [address] Dr. Luis Enrique De La Cruz CT ABD/PELVIS WO CONon 06-11 CT ABD/PELVIS WO CON EXAMINATION: CT ABDOMEN AND PELVIS WITHOUT IV CONTRAST CLINICAL HISTORY: Right upper quadrant abdominal pain TECHNIQUE: Non-IV contrast imaging of the abdomen and pelvis was performed using standard technique, scanning from just above the dome of the diaphragm to the symphysis pubis. Unenhanced imaging is limited for the evaluation of some intra-abdominal and pelvic pathology. All CT scans at this facility use dose modulation, iterative reconstruction, and/or weight based dosing when appropriate to reduce radiation dose to as low as reasonably achievable. Contrast: IV: None COMPARISON: CT abdomen and pelvis 05/15/2021 RESULT: Abdomen / Pelvis: Liver: Hepatomegaly, craniocaudal length 28.5 cm. Diffuse hepatic steatosis. Biliary: The gallbladder is unremarkable. Spleen: No splenomegaly. Pancreas: Unremarkable. Adrenals: Normal. Kidneys: No calculus, hydronephrosis or finding to suggest a cyst or mass in the unenhanced kidney. GI Tract: No bowel dilation. Appendix not visualized. No diverticulosis. Lymph Nodes: No lymphadenopathy. Mesentery/peritone um: No ascites. Retroperitoneum: No mass. Vasculature: No abdominal aortic or iliac artery aneurysm. Pelvis: No mass or ascites. Urinary bladder is unremarkable. Bones/Soft Tissues: No acute abnormality. Lower thorax: Unremarkable. IMPRESSION: 1. No acute findings in the abdomen and pelvis. 2. Hepatomegaly, with diffuse hepatic steatosis. Electronically authenticated by: MAYRA OCHOA Date: 2022-06-11 21:16 Normal [facility] ER URINE PROFILEon 3 Bilirubin Ql (U) Negative Normal NEGATIVE [facility] Comment on above: Performed By: #### A MY, CMP, LIPA #### [facility] [address] [place] [address] Dr. Luis Enrique De La Cruz Clarity (U) CLEAR Normal CLEAR [facility] Comment on above: Performed By: #### A MY, CMP, LIPA #### [facility] [address] [place] [address] Dr. Luis Enrique De La Cruz Color (U) LT. YELLOW Normal YELLOW [facility] Comment on above: Performed By: #### A MY, CMP, LIPA #### [facility] [address] [place] [address] Dr. Luis Enrique De La Cruz ERUAHD A micrscopic examination will be performed if indicated. Normal [facility] Comment on above: Performed By: #### A MY, CMP, LIPA #### [facility] [address] [place] [address] Dr. Luis Enrique De La Cruz Glucose Ql (U) Negative Normal NEGATIVE [facility] Comment on above: Performed By: #### A MY, CMP, LIPA #### [facility] [address] [place] [address] Dr. Luis Enrique De La Cruz Hemoglobin Ql (U) Negative Normal NEGATIVE [facility] Comment on above: Performed By: #### A MY, CMP, LIPA #### [facility] [address] [address] [address] Luis Enrique De La Cruz Ketones Ql (U) Negative Normal NEGATIVE [facility] Comment on above: Performed By: #### A MY, CMP, LIPA #### [facility] [address] [place] [address] Dr. Luis Enrique De La Cruz LEUKOCYTES SMALL Abnormal NEGATIVE [facility] Comment on above: Performed By: #### A MY, CMP, LIPA #### [facility] [address] [address] [address] Luis Enrique De La Cruz Nitrite Ql (U) Negative Normal NEGATIVE [facility] Comment on above: Performed By: #### A MY, CMP, LIPA #### [facility] [address] [place] [address] Dr. Luis Enrique De La Cruz pH (U) 7.0 [pH] Normal 5-9 [facility] Comment on above: Performed By: #### A MY, CMP, LIPA #### [facility] [address] [place] [address] Dr. Luis Enrique De La Cruz SPEC GRAVITY 1.020 Normal 1.005-<=1.025 [facility] Comment on above: Performed By: #### A MY, CMP, LIPA #### [facility] [address] [place] [address] Dr. Luis Enrique De La Cruz UA PROTEIN Negative Normal NEGATIVE/ TRACE [facility] Comment on above: Performed By: #### A MY, CMP, LIPA #### [facility] [address] [place] [address] Dr. Luis Enrique De La Cruz UR MICRO IND INDICATED Normal [facility] Comment on above: Performed By: #### A MY, CMP, LIPA #### [facility] [address] [place] [address] Dr. Luis Enrique De La Cruz Urobilinogen Qn (U) 2.0 {Yudy'U}/dL Abnormal 0.2 - 1. 0 [facility] Comment on above: Performed By: #### A MY, CMP, LIPA #### [facility] [address] [address] [address] Luis Enrique De La Cruz LIPASEon 06-11-2022 Lipase [Catalytic activity/Vol] 196.0 U/L Normal 73.0-393.0 [facility] Comment on above: Performed By: #### A MY, CMP, LIPA #### [facility] [address] [address] [address] Luis Enrique De La Cruz URon 06-11-2022 , QUAL Negative Normal NEGATIVE [facility] Comment on above: Performed By: #### A MY, CMP, LIPA #### [facility] [address] [address] [address] Luis Enrique De La Cruz PROF 14(COMP METB)on 023 Albumin [Mass/Vol] 3.5 g/dL Normal 3.4-5.0 [facility] Comment on above: Performed By: #### A MY, CMP, LIPA #### [facility] [address] [address] [address] Luis Enrique De La Cruz Albumin/Globulin [Mass ratio] 0.9 {ratio} Normal [facility] Comment on above: Performed By: #### A MY, CMP, LIPA #### [facility] [address] [place] [address] Dr. Luis Enrique De La Cruz ALP [Catalytic activity/Vol] 84 U/L Normal 46-116 [facility] Comment on above: Performed By: #### A MY, CMP, LIPA #### [facility] [address] [address] [address] Luis Enrique De La Cruz ALT [Catalytic activity/Vol] 51 U/L Normal 14-59 [facility] Comment on above: Performed By: #### A MY, CMP, LIPA #### [facility] [address] [place] [address] Dr. Luis Enrique De La Cruz Anion gap [Moles/Vol] 11.7 mmol/L Normal [facility] Comment on above: Performed By: #### A MY, CMP, LIPA #### [facility] [address] [place] [address] Dr. Luis Enrique De La Cruz AST [Catalytic activity/Vol] 63 U/L Critically high 15-37 [facility] Comment on above: Performed By: #### A MY, CMP, LIPA #### [facility] [address] [address] [address] Luis Enrique De La Cruz Bilirubin [Mass/Vol] 0.5 mg/dL Normal 0.2-1.0 [facility] Comment on above: Performed By: #### A MY, CMP, LIPA #### [facility] [address] [address] [address] Luis Enrique De La Cruz Calcium [Mass/Vol] 8.6 mg/dL Normal 8.5-10.1 [facility] Comment on above: Performed By: #### A MY, CMP, LIPA #### [facility] [address] [place] [address] Dr. Luis Enrique De La Cruz Chloride [Moles/Vol] 103 mmol/L Normal 98-107 [facility] Comment on above: Performed By: #### A MY, CMP, LIPA #### [facility] [address] [place] [address] Dr. Luis Enrique De La Cruz CO2 [Moles/Vol] 28.5 mmol/L Normal 21.0-32.0 [facility] Comment on above: Performed By: #### A MY, CMP, LIPA #### [facility] [address] [place] [address] Dr. Luis Enrique De La Cruz Creatinine [Mass/Vol] 0.71 mg/dL Normal 0.55-1.02 [facility] Comment on above: Performed By: #### A MY, CMP, LIPA #### [facility] [address] [place] [address] Dr. Luis Enrique De La Cruz EGFR-AF WELSH >60 Normal >=60 [facility] Comment on above: Performed By: #### A MY, CMP, LIPA #### [facility] [address] [place] [address] Dr. Luis Enrique De La Cruz EGFR-NON AF WELSH >60 Normal >=60 [facility] Comment on above: Performed By: #### A MY, CMP, LIPA #### [facility] [address] [address] [address] Luis Enrique De La Cruz Globulin (S) [Mass/Vol] 3.8 g/dL Normal [facility] Comment on above: Performed By: #### A MY, CMP, LIPA #### [facility] [address] [address] [address] Luis Enrique De La Cruz Glucose [Mass/Vol] 159 mg/dL Critically high 74-106 T [facility] Comment on above: Performed By: #### A MY, CMP, LIPA #### [facility] [address] [address] [address] Luis Enrique De La Cruz Potassium [Moles/Vol] 4.2 mmol/L Normal 3.5-5.1 [facility] Comment on above: Performed By: #### A MY, CMP, LIPA #### [facility] [address] [address] [address] Luis Enrique De La Cruz Protein [Mass/Vol] 7.3 g/dL Normal 6.4-8.2 [facility] Comment on above: Performed By: #### A MY, CMP, LIPA #### [facility] [address] [address] [address] Luis Enrique De La Cruz Sodium [Moles/Vol] 139 mmol/L Normal 136-145 [facility] Comment on above: Performed By: #### A MY, CMP, LIPA #### [facility] [address] [address] [address] Luis Enrique De La Cruz Urea nitrogen [Mass/Vol] 7.0 mg/dL Normal 7.0-18.0 [facility] Comment on above: Performed By: #### A MY, CMP, LIPA #### [facility] [address] [address] [address] Luis Enrique De La Cruz Urea nitrogen/Creatinine [Mass ratio] 9.9 mg/mg Normal [facility] Comment on above: Performed By: #### A MY, CMP, LIPA #### [facility] [address] [address] [address] Luis Enrique De La Cruz URINE MICROSCOPIC ONLYon BACTERIA NONE SEEN Normal NONE SEEN [facility] Comment on above: Performed By: #### A MY, CMP, LIPA #### [facility] [address] [place] [address] Dr. Luis Enrique De La Cruz Bacteria identified Cx Nom (U) NOT INDICATED Normal [facility] Comment on above: Performed By: #### A MY, CMP, LIPA #### [facility] [address] [place] [address] Dr. Luis Enrique De La Cruz CAST NONE SEEN Normal NONE SEEN [facility] Comment on above: Performed By: #### A MY, CMP, LIPA #### [facility] [address] [place] [address] Dr. Luis Enrique De La Cruz Crystals LM Nom (Urine sed) NONE SEEN Normal NONE SEEN [facility] Comment on above: Performed By: #### A MY, CMP, LIPA #### [facility] [address] [place] [address] Dr. Luis Enrique De La Cruz Epithelial cells LM Ql (Urine sed) RARE Normal NONE SEEN /RARE [facility] Comment on above: Performed By: #### A MY, CMP, LIPA #### [facility] [address] [place] [address] Dr. Luis Enrique De La Cruz MUCOUS NONE SEEN Normal NONE SEEN [facility] Comment on above: Performed By: #### A MY, CMP, LIPA #### [facility] [address] [place] [address] Dr. Luis Enrique De La Cruz RBC 0-2 Normal 0-2 [facility] Comment on above: Performed By: #### A MY, CMP, LIPA #### [facility] [address] [place] [address] Dr. Luis Enrique De La Cruz WBC 0-2 Abnormal NONE SEEN [facility] Comment on above: Performed By: #### A MY, CMP, LIPA #### [facility] [address] [place] [address] Dr. Luis Enrique De La Cruz COVID + FLU Quick Testingon 03-30-2022 SARS-CoV-2 (COVID-19) RNA JADEN+probe Ql (Unsp spec) Positive [employer] Other COVID + FLU Quick Testing Negative [employer] Other GLYCOHEMOGLOBIN A1Con 2021 ADA RECOMMENDATION SEE BELOW Normal [facility] Comment on above: Result Comment: ADA RECOMMENDED LIMIT 4.0 - 6.0 ADA THERAPEUTIC TARGET < 7.0 ACTION SUGGESTED > 7.0 Performed By: #### A 1C #### [facility] [address] [place] [address] Dr. Luis Enrique De La Cruz Glucose [Mass/Vol] 117 mg/dL Normal [facility] Comment on above: Performed By: #### A 1C #### [facility] [address] [address] [address] Luis Enrique De La Cruz HbA1c (Bld) [Mass fraction] 5.7 % Normal 4.5-6.2 [facility] Comment on above: Performed By: #### A 1C #### [facility] [address] [place] [address] Dr. Luis Enrique De La Cruz PROF CHEM 8 (BAS METB)on Anion gap [Moles/Vol] 10.7 mmol/L Normal [facility] Comment on above: Performed By: #### A MY, CMP, LIPA #### [facility] [address] [place] [address] Dr. Luis Enrique De La Cruz Calcium [Mass/Vol] 8.7 mg/dL Normal 8.5-10.1 [facility] Comment on above: Performed By: #### A MY, CMP, LIPA #### [facility] [address] [place] [address] Dr. Luis Enrique De La Cruz Chloride [Moles/Vol] 101 mmol/L Normal 98-107 [facility] Comment on above: Performed By: #### A MY, CMP, LIPA #### [facility] [address] [place] [address] Dr. Luis Enrique De La Cruz CO2 [Moles/Vol] 29.5 mmol/L Normal 21.0-32.0 [facility] Comment on above: Performed By: #### A MY, CMP, LIPA #### [facility] [address] [place] [address] Dr. Luis Enrique De La Cruz Creatinine [Mass/Vol] 0.69 mg/dL Normal 0.55-1.02 [facility] Comment on above: Performed By: #### A MY, CMP, LIPA #### [facility] [address] [address] [address] Luis Enrique De La Cruz EGFR-AF WELSH >60 Normal >=60 [facility] Comment on above: Performed By: #### A MY, CMP, LIPA #### [facility] [address] [address] [address] Luis Enrique De La Cruz EGFR-NON AF WELSH >60 Normal >=60 [facility] Comment on above: Performed By: #### A MY, CMP, LIPA #### [facility] [address] [address] [address] Luis Enrique De La Cruz Glucose [Mass/Vol] 101 mg/dL Normal 74-106 [facility] Comment on above: Performed By: #### A MY, CMP, LIPA #### [facility] [address] [address] [address] Luis Enrique De La Cruz Potassium [Moles/Vol] 4.2 mmol/L Normal 3.5-5.1 [facility] Comment on above: Performed By: #### A MY, CMP, LIPA #### [facility] [address] [address] [address] Luis Enrique De La Cruz Sodium [Moles/Vol] 137 mmol/L Normal 136-145 [facility] Comment on above: Performed By: #### A MY, CMP, LIPA #### [facility] [address] [address] [address] Luis Enrique De La Cruz Urea nitrogen [Mass/Vol] 9.0 mg/dL Normal 7.0-18.0 [facility] Comment on above: Performed By: #### A MY, CMP, LIPA #### [facility] [address] [address] [address] Luis Enrique De La Cruz Urea nitrogen/Creatinine [Mass ratio] 13.0 mg/mg Normal [facility] Comment on above: Performed By: #### A MY, CMP, LIPA #### [facility] [address] [address] [address] Luis Enrique De La Cruz CBC AUTO DIFFon 10-09-2021 BASO # 0.1 103/ul Normal 0.0-0.1 [facility] Comment on above: Performed By: #### C BC #### [facility] [address] [address] [address] Luis Enrique De La Cruz Basophils/100 WBC (Bld) 0.5 % Normal 0.2-2.0 [facility] Comment on above: Performed By: #### C BC #### [facility] [address] [address] [address] Luis Enrique De La Cruz EO # 0.2 103/ul Normal 0.0-0.7 [facility] Comment on above: Performed By: #### C BC #### [facility] [address] [place] [address] Dr. Luis Enrique De La Cruz Eosinophils/100 WBC (Bld) 1.6 % Normal 0.9-7.0 [facility] Comment on above: Performed By: #### C BC #### [facility] [address] [address] [address] Luis Ernique De La Cruz Erythrocyte distribution width (RBC) [Ratio] 14.3 % Normal 11.0-15.0 [facility] Comment on above: Performed By: #### C BC #### [facility] [address] [place] [address] Dr. Luis Enrique De La Cruz Hematocrit (Bld) [Volume fraction] 38.8 % Normal 36.0-48.0 [facility] Comment on above: Performed By: #### C BC #### [facility] [address] [place] [address] Dr. Luis Enrique De La Cruz Hemoglobin (Bld) [Mass/Vol] 12.3 g/dL Normal 12.0-16.0 [facility] Comment on above: Performed By: #### C BC #### [facility] [address] [place] [address] Dr. Luis Enrique De La Cruz IG # 0.05 10e3/ul Critically high 0.00-0.03 [facility] Comment on above: Performed By: #### C BC #### [facility] [address] [place] [address] Dr. Luis Enrique De La Cruz IG % 0.5 % Normal 0.0-0.5 [facility] Comment on above: Performed By: #### C BC #### [facility] [address] [place] [address] Dr. Luis Enrique De La Cruz LYMPH # 2.9 103/ul Normal 1.2-3.8 [facility] Comment on above: Performed By: #### C BC #### [facility] [address] [place] [address] Dr. Luis Enrique De La Cruz Lymphocytes/100 WBC (Bld) 27.6 % Normal 20.5-60.0 [facility] Comment on above: Performed By: #### C BC #### [facility] [address] [place] [address] Dr. Luis Enrique De La Cruz MANUAL DIFF REQ NO Normal [facility] Comment on above: Performed By: #### C BC #### [facility] [address] [place] [address] Dr. Luis Enrique De La Cruz MCH (RBC) [Entitic mass] 27.7 pg Normal 26.7-34.0 [facility] Comment on above: Performed By: #### C BC #### [facility] [address] [place] [address] Dr. Luis Enrique De La Cruz MCHC (RBC) [Mass/Vol] 31.7 g/dL Normal 29.9-35.2 [facility] Comment on above: Performed By: #### C BC #### [facility] [address] [place] [address] Dr. Luis Enrique De La Cruz MCV (RBC) [Entitic vol] 87.4 fL Normal 81.0-99.0 [facility] Comment on above: Performed By: #### C BC #### [facility] [address] [place] [address] Dr. Luis Enrique De La Cruz MONO # 0.6 103/ul Normal 0.3-0.8 [facility] Comment on above: Performed By: #### C BC #### [facility] [address] [place] [address] Dr. Luis Enrique De La Cruz Monocytes/100 WBC (Bld) 6.1 % Normal 1.7-12.0 [facility] Comment on above: Performed By: #### C BC #### [facility] [address] [place] [address] Dr. Luis Enrique De La Cruz NEUT # 6.7 103/ul Critically high 1.4-6.5 [facility] Comment on above: Performed By: #### C BC #### [facility] [address] [place] [address] Dr. Luis Enrique De La Cruz Neutrophils/100 WBC (Bld) 63.7 % Normal 43.0-75.0 [facility] Comment on above: Performed By: #### C BC #### [facility] [address] [place] [address] Dr. Luis Enrique De La Cruz Platelet mean volume (Bld) [Entitic vol] 9.9 fL Normal 9.5-13.5 [facility] Comment on above: Performed By: #### C BC #### [facility] [address] [place] [address] Dr. Luis Enrique De La Cruz PLT 305 103/ul Normal 150-450 [facility] Comment on above: Performed By: #### C BC #### [facility] [address] [place] [address] Dr. Luis Enrique De La Cruz RBC 4.44 106/ul Normal 4.20-5.40 [facility] Comment on above: Performed By: #### C BC #### [facility] [address] [place] [address] Dr. Luis Enrique De La Cruz WBC 10.5 103/ul Normal 4.0-11.0 [facility] Comment on above: Performed By: #### C BC #### [facility] [address] [place] [address] Dr. Luis Enrique De La Cruz FREE T3on 10-09-2021 FREE T3 2.49 pg/mlL Normal 2.18-3.98 [facility] Comment on above: Performed By: #### A MY, CMP, LIPA #### [facility] [address] [place] [address] Dr. Luis Enrique De La Cruz FREE T4on 10-09-2021 Free T4 [Mass/Vol] 0.87 ng/dL Normal 0.76-1.46 [facility] Comment on above: Performed By: #### F T4 #### [facility] [address] [place] [address] Dr. Luis Enrique De La Cruz TSHon 10-09-2021 TSH 2.146 uIU/mL Normal 0.358-3.740 [facility] Comment on above: Performed By: #### A MY, CMP, LIPA #### [facility] [address] [place] [address] Dr. Luis Enrique De La Cruz CBC AUTO DIFFon 07-16-2021 BASO # 0.1 103/ul Normal 0.0-0.1 [facility] Comment on above: Performed By: #### A MY, CMP, LIPA #### [facility] [address] [place] [address] Dr. Luis Enrique De La Cruz Basophils/100 WBC (Bld) 0.3 % Normal 0.2-2.0 [facility] Comment on above: Performed By: #### A MY, CMP, LIPA #### [facility] [address] [place] [address] Dr. Luis Enrique De La Cruz EO # 0.1 103/ul Normal 0.0-0.7 [facility] Comment on above: Performed By: #### A MY, CMP, LIPA #### [facility] [address] [place] [address] Dr. Luis Enrique De La Cruz Eosinophils/100 WBC (Bld) 1.0 % Normal 0.9-7.0 [facility] Comment on above: Performed By: #### A MY, CMP, LIPA #### [facility] [address] [place] [address] Dr. Luis Enrique De La Cruz Erythrocyte distribution width (RBC) [Ratio] 14.5 % Normal 11.0-15.0 [facility] Comment on above: Performed By: #### A MY, CMP, LIPA #### [facility] [address] [place] [address] Dr. Luis Enrique De La Cruz Hematocrit (Bld) [Volume fraction] 42.3 % Normal 36.0-48.0 [facility] Comment on above: Performed By: #### A MY, CMP, LIPA #### [facility] [address] [place] [address] Dr. Luis Enrique De La Cruz Hemoglobin (Bld) [Mass/Vol] 13.2 g/dL Normal 12.0-16.0 [facility] Comment on above: Performed By: #### A MY, CMP, LIPA #### [facility] [address] [place] [address] Dr. Luis Enrique De La Cruz IG # 0.09 10e3/ul Critically high 0.00-0.03 [facility] Comment on above: Performed By: #### A MY, CMP, LIPA #### [facility] [address] [place] [address] Dr. Luis Enrique De La Cruz IG % 0.6 % Critically high 0.0-0.5 [facility] Comment on above: Performed By: #### A MY, CMP, LIPA #### [facility] [address] [place] [address] Dr. Luis Enrique De La Cruz LYMPH # 1.0 103/ul Critically low 1.2-3.[address] [facility] Comment on above: Performed By: #### A MY, CMP, LIPA #### [facility] [address] [place] [address] Dr. Luis Enrique De La Cruz Lymphocytes/100 WBC (Bld) 7.1 % Critically low 20.5-60.0 [facility] Comment on above: Performed By: #### A MY, CMP, LIPA #### [facility] [address] [place] [address] Dr. Luis Enrique De La Cruz MANUAL DIFF REQ NO Normal [facility] Comment on above: Performed By: #### A MY, CMP, LIPA #### [facility] [address] [place] [address] Dr. Luis Enrique De La Cruz MCH (RBC) [Entitic mass] 27.4 pg Normal 26.7-34.0 [facility] Comment on above: Performed By: #### A MY, CMP, LIPA #### [facility] [address] [place] [address] Dr. Luis Enrique De La Cruz MCHC (RBC) [Mass/Vol] 31.2 g/dL Normal 29.9-35.2 [facility] Comment on above: Performed By: #### A MY, CMP, LIPA #### [facility] [address] [place] [address] Dr. Luis Enrique De La Cruz MCV (RBC) [Entitic vol] 87.8 fL Normal 81.0-99.0 [facility] Comment on above: Performed By: #### A MY, CMP, LIPA #### [facility] [address] [place] [address] Dr. Luis Enrique De La Cruz MONO # 1.0 103/ul Critically high 0.3-0.8 [facility] Comment on above: Performed By: #### A MY, CMP, LIPA #### [facility] [address] [place] [address] Dr. Luis Enrique De La Cruz Monocytes/100 WBC (Bld) 6.6 % Normal 1.7-12.0 [facility] Comment on above: Performed By: #### A MY, CMP, LIPA #### [facility] [address] [place] [address] Dr. Luis Enrique De La Cruz NEUT # 12.4 103/ul Critically high 1.4-6.5 The [facility] Comment on above: Performed By: #### A MY, CMP, LIPA #### [facility] [address] [place] [address] Dr. Luis Enrique De La Cruz Neutrophils/100 WBC (Bld) 84.4 % Critically high 43.0-75.0 [facility] Comment on above: Performed By: #### A MY, CMP, LIPA #### [facility] [address] [place] [address] Dr. Luis Enrique De La Cruz Platelet mean volume (Bld) [Entitic vol] 10.0 fL Normal 9.5-13.5 [facility] Comment on above: Performed By: #### A MY, CMP, LIPA #### [facility] [address] [place] [address] Dr. Luis Enrique De La Cruz PLT 357 103/ul Normal 150-450 [facility] Comment on above: Performed By: #### A MY, CMP, LIPA #### [facility] [address] [place] [address] Dr. Luis Enrique De La Cruz RBC 4.82 106/ul Normal 4.20-5.40 [facility] Comment on above: Performed By: #### A MY, CMP, LIPA #### [facility] [address] [place] [address] Dr. Luis Enrique De La Cruz WBC 14.7 103/ul Critically high 4.0-11.0 [facility] Comment on above: Performed By: #### A MY, CMP, LIPA #### [facility] [address] [place] [address] Dr. Luis Enrique De La Cruz PREG HCG QUALon 07-16-2021 , QUAL Negative Normal NEGATIVE [facility] Comment on above: Performed By: #### P REG #### [facility] [address] [place] [address] Dr. Luis Enrique De La Cruz PROF 14(COMP METB)on 022 Albumin [Mass/Vol] 3.9 g/dL Normal 3.4-5.0 [facility] Comment on above: Performed By: #### C MP #### [facility] [address] [place] [address] Dr. Luis Enrique De La Cruz Albumin/Globulin [Mass ratio] 1.1 {ratio} Normal [facility] Comment on above: Performed By: #### C MP #### [facility] [address] [place] [address] Dr. Luis Enrique De La Cruz ALP [Catalytic activity/Vol] 88 U/L Normal 46-116 [facility] Comment on above: Performed By: #### C MP #### [facility] [address] [place] [address] Dr. Luis Enrique De La Cruz ALT [Catalytic activity/Vol] 50 U/L Normal 14-59 [facility] Comment on above: Performed By: #### C MP #### [facility] [address] [place] [address] Dr. Luis Enrique De La Cruz Anion gap [Moles/Vol] 15.6 mmol/L Normal [facility] Comment on above: Performed By: #### C MP #### [facility] [address] [place] [address] Dr. Luis Enrique De La Cruz AST [Catalytic activity/Vol] 37 U/L Normal 15-37 [facility] Comment on above: Performed By: #### C MP #### [facility] [address] [place] [address] Dr. Luis Enrique De La Cruz Bilirubin [Mass/Vol] 0.5 mg/dL Normal 0.2-1.0 [facility] Comment on above: Performed By: #### C MP #### [facility] [address] [place] [address] Dr. Luis Enrique De La Cruz Calcium [Mass/Vol] 8.8 mg/dL Normal 8.5-10.1 [facility] Comment on above: Performed By: #### C MP #### [facility] [address] [place] [address] Dr. Luis Enrique De La Cruz Chloride [Moles/Vol] 104 mmol/L Normal 98-107 [facility] Comment on above: Performed By: #### C MP #### [facility] [address] [place] [address] Dr. Luis Enrique De La Cruz CO2 [Moles/Vol] 23.8 mmol/L Normal 21.0-32.0 [facility] Comment on above: Performed By: #### C MP #### [facility] [address] [place] [address] Dr. Luis Enrique De La Cruz Creatinine [Mass/Vol] 0.81 mg/dL Normal 0.55-1.02 [facility] Comment on above: Performed By: #### C MP #### [facility] [address] [place] [address] Dr. Luis Enrique De La Cruz EGFR-AF WELSH >60 Normal >=60 [facility] Comment on above: Performed By: #### C MP #### [facility] [address] [place] [address] Dr. Lui sEnrique De La Cruz EGFR-NON AF WELSH >60 Normal >=60 [facility] Comment on above: Performed By: #### C MP #### [facility] [address] [address] [address] Luis Enrique De La Cruz Globulin (S) [Mass/Vol] 3.7 g/dL Normal [facility] Comment on above: Performed By: #### C MP #### [facility] [address] [address] [address] Luis Enrique De La Cruz Glucose [Mass/Vol] 128 mg/dL Critically high 74-106 T [facility] Comment on above: Performed By: #### C MP #### [facility] [address] [address] [address] Luis Enrique De La Cruz Potassium [Moles/Vol] 4.4 mmol/L Normal 3.5-5.1 [facility] Comment on above: Performed By: #### C MP #### [facility] [address] [place] [address] Dr. Luis Enrique De La Cruz Protein [Mass/Vol] 7.6 g/dL Normal 6.4-8.2 [facility] Comment on above: Performed By: #### C MP #### [facility] [address] [place] [address] Dr. Luis Enrique De La Cruz Sodium [Moles/Vol] 139 mmol/L Normal 136-145 [facility] Comment on above: Performed By: #### C MP #### [facility] [address] [place] [address] Dr. Luis Enrique De La Cruz Urea nitrogen [Mass/Vol] 14.0 mg/dL Normal 7.0-18.0 [facility] Comment on above: Performed By: #### C MP #### [facility] [address] [place] [address] Dr. Luis Enrique De La Cruz Urea nitrogen/Creatinine [Mass ratio] 17.3 mg/mg Normal [facility] Comment on above: Performed By: #### C MP #### [facility] [address] [place] [address] Dr. Luis Enrique De La Cruz Vital Signs Date Time Vital Sign Value Performing Clinician Facility 12-26-2022 14:27-0400 Blood Pressure Location [facility] 12-26-2022 14:27-0400 Diastolic blood pressure 96 mm[Hg] [facility] 12-26-2022 14:27-0400 Heart rate 80 /min Brain [facility] [place] 12-26-2022 14:27-0400 Respiratory rate 16 /min Brain THOMASL [facility] 12-26-2022 14:27-0400 Systolic blood pressure 140 mm[Hg] [facility] 03-30-2022 12:00-0500 Body height 180.34 cm Deedee Mariano Other [facility] Other 03-30-2022 12:00-0500 Body mass index (BMI) [Ratio] 62.76 kg/m2 Deedee Mariano Other [facility] Other 03-30-2022 12:00-0500 Body temperature 97.7 [degF] Deedee Mariano Other [facility] Other 03-30-2022 12:00-0500 Body weight 204.12 kg Deedee Montserrat Other [facility] Other 03-30-2022 12:00-0500 Diastolic blood pressure 94 mm[Hg] Deedee Mariano Other [facility] Other 03-30-2022 12:00-0500 Respiratory rate 18 /min Deedee Mariano Other [facility] Other 03-30-2022 12:00-0500 SaO2% (BldA) [Mass fraction] 97 % Deedee Mariano Other [facility] Other 03-30-2022 12:00-0500 Systolic blood pressure 139 mm[Hg] Deedee Mariano Other [facility] Other Encounters Encounter Date Encounter Type Care Provider Facility Start: 01-21-2023 End: 01-22-2023 ambulatory Brain R NILL Facility:[id number] Start: 12-26-2022 End: 12-27-2022 ambulatory Brain Pete NILL Facility: [facility] Start: 12-26-2022 End: 12-26-2022 Patient encounter procedure Brain R N[facility] Start: 12-24-2022 End: 12-25-2022 ambulatory Thigao Gambino Facility:[facility] [place] [facility] Start: 12-16-2022 ambulatory Thiago Gambino Facility:[facility] Start: 12-04-2022 End: 12-05-2022 ambulatory Thiago Gambino Facility:[facility] [place] [facility] Start: 10-16-2022 End: 10-17-2022 ambulatory Thiago Gambino Facility:[facility] [place] [facility] Start: 09-16-2022 End: 09-17-2022 ambulatory Thiago Gambino Facility:[facility] [place] [facility] Start: 08-21-2022 End: 08-22-2022 ambulatory Thiago Gambino Facility:[facility] [place] [facility] Start: 07-23-2022 ambulatory Thiago Gambino Facility :[facility] Start: 06-23-2022 End: 06-24-2022 ambulatory Thiago Gambino Facility:[facility] Start: 06-23-2022 End: 06-24-2022 ambulatory Thiago Gambino Facility:[facility] [place] [facility] Start: 06-17-2022 ambulatory Thiago Gambino Facility:[facility] [place] Start: 06-11-2022 End: 06-12-[address] JERAMY MERCADO . Facility: Start: 03-30-2022 End: 03-30-2022 ambulatory Deedee Mariano Other [facility] [employer] Other Start: 03-30-2022 Office outpatient ne w 20 minutes Deedee Mariano [facility] Start: 01-10-2022 End: 01-11-[address] JERAMY MERCADO . Facility: Start: 12-31-[address] JERAMY MERCADO . Facil ity:[facility] Start: 10-09-2021 End: 10-10-[address] JERAMY MERCADO . Facility:[facility] Start: 07-16-2021 End: 07-16-[address] JERAMY MERCADO . Facility: Procedures Date Procedure Procedure Detail Performing Clinician Tonsillectomy and adenoidectomy Brain NILL Plan of Treatment Date Care Activity Detail Author Start: 03-16-2023 ambulatory Ambulatory Facility:Henrique Reyes [facility] Immunizations Immunization Date Immunization Notes Care Provider Fa [facility] 05-08-2021 SARS-CoV-2 mRNA (wnxqngeyfei-[id number]-xkwt ose) vaccine Brain [facility] 04-15-2021 SARS-CoV-2 mRNA (hcptwnaqsuw-iwlk-ppdm ose) vaccine Brain N[facility] 02-22-2008 Hep A, unspecified formulation Brain N[facility] 02-22-2008 hepatitis B vaccine, pediatric or pediatric/adolescent dosage Brain N[facility] 09-21-2007 hepatitis B vaccine, pediatric or pediatric/adolescent dosage Brain N[facility] 08-19-2007 Hep A, unspecified formulation Brain NILL [facility] 08-19-2007 hepatitis B vaccine, pediatric or pediatric/adolescent dosage Brain NILL [facility] 08-19-2007 tetanus toxoid, reduced diphtheria toxoid, and acellular pertussis vaccine, adsorbed Brain TILLEY [facility] 07-13-2001 measles, mumps and rubella virus vaccine [facility] 03-13-1995 DTaP, unspecified formulation [facility] 07-16-1992 Hib, unspecified formulation [facility] 07-16-1992 measles, mumps and rubella virus vaccine [facility] 09-27-1990 Hib, unspecified formulation [facility] NEGATED: Highlighted row has not occurred!12-24-2022 influenza virus vaccine, unspecified formulation [facility] NEGATED: Highlighted row has not occurred!12-04-2022 influenza virus vaccine, unspecified formulation [facility] Payers Date Payer Category Payer Unknown [id number] 2.16.84 [id number] 1989 Unknown [id number] 2.16.84 0.1.830256.3.579.2.59 1989 Unknown [id number] .16.84 0.1.170696.3.579.2.59 1989 Unknown [id number] 2.16.84 0.1.352168.3.579.2.59 1989 Unknown [id number] .16.84 0.1.704573.3.579.2.593 1989 Unknown [id number] 2.16.8 40.1.889927.3.579.2. 1989 Unknown [id number] 2.16.8 40.1.690245.3.579.2. 1989 Unknown [id number] 2.16.8 40.1.353113.3.579.2. 1989 Unknown [id number] 2.16.8 40.1.865032.3.579.2 1989 Unknown [id number] 2.16.8 40.1.814875.3.579.2 1989 Unknown [id number] 2.16.8 40.1.405585.3.579.2 1989 Unknown [id number] 2.16.8 40.1.473703.3.579.2 1989 Unknown [id number] 2.16.8 40.1.113178.3.579.2 1989 Unknown [id number] 2.16.8 40.1.409981.3.579.2 1989 Unknown [id number] 2.16.8 40.1.075590.3.579.2 1989 Unknown [id number] 2.16.8 40.1.410524.3.579.27 1959 [facility] KCKAN [id number] 1960 Self-pay Social History Date Type Detail Facility Sex Assigned At [facility] Start: 12-26-2022 Tobacco smoking status Never s moked tobacco (finding) [facility] Functional Status Date Assessment Result Facility 12-26-2022 Functional Status N/A [facility] 12-26-2022 Note Date & Type Note Facility 12-26-2022 Note Chief Complaint consultation for anal skin tag HPI Staff 32 year old female presents on consultation from Dr. Gambino for anal skin tag. Reports two year history of elongated tissue hanging from anus. Verbalized over time, this has significantly increased in length but not width. Reports occasional soreness and bleeding with excessive wiping. History of Present Illness 32 yo female with h/o htn, DMII, IVAN, hypothyroidism, GERD, migraines, WATTERS, morbid obesity; referred for enlarging, irritated anal skin tag; no bleeding, prolapsed out all the time; no change in bms; mild soreness; no previous anal surgery; no asa or NSAID use; vapes nicotine containing substances. Review of Systems PHQ Score Initial Depression Screen Score: 0 ROS - Provider Constitutional: no fever, no sweats, no weight loss. Eyes: no glasses, no blurred vision, no visual loss. ENMT: no dentures, no hoarseness, no swallowing difficulties, no hearing loss, no ear infection(s), no nose bleeds. Cardiovascular: normal blood pressure, no chest pain, regular heartbeat, no heart murmur. Respiratory: no shortness of breath, no cough, no asthma, no wheezing. Gastrointestinal: no nausea, no vomiting, no diarrhea, no constipation, no blood in stool, no change in bowel habits, no abdominal pain, no hepatitis. Genitourinary: no kidney stones, no urine infection, no dysuria. Musculoskeletal: no pain, no weakness. Skin: no changing moles, no rash, no skin lumps. Neurologic: no seizures, no epilepsy, no headache. Psychiatric: no emotional or psychiatric problem. Heme/Lymph: no bleeding problems, no anemia, no blood clots, no transfusions. Allergy/Immunologic: no swollen lymph nodes/glands, no IV drug abuse. Other: Additional ROS info: Except as noted in the above Review of Systems and in the History of Present Illness, all other systems have been reviewed and are negative or noncontributory. Physical Exam Vitals & Measurements HR: 80(Peripheral) RR: 16 BP: 140/96 HT: 71 in HT: 180.3 cm WT: 184 kg WT: 404.8 lb BMI: 56.6 HEENT: normal conjunctiva, sclera clear, no scleral icterus, EOM intact, PERRLA, oral mucosa moist without lesions. Neck: trachea midline, no mass, symmetric, no thyromegaly or nodules, no adenopathy Respiratory: lungs CTA, respirations non labored. Cardiovascular: regular rate and rhythm, no murmur, no pedal edema or varicosities. Gastrointestinal: obese, soft, non distended, no tenderness, no masses, no palpable hernias, diastasis recti no, no hepatosplenomegaly; normal bs rectal: 3 cm x 7 mm anal skin tag, no irritation or bleeding currently. Musculoskeletal: normal gait, digits and nails without infection, nodes, cyanosis, clubbing. Skin: no rashes, no lesions, no ulcers, no subcutaneous nodules, induration. Psychiatric/Neuro: oriented to time, place, person, judgement normal, affect appropriate for age, insight intact, no focal deficits. Tests: review of old records completed , Discussed surgical options, risks, and possible complications with patient. Assessment/Plan 1. Anal skin tag (K64.4: Residual hemorrhoidal skin tags) plan excision under local anesthesia at [facility], informed consent obtained. 2. BMI 50.0-59.9, adult (Z68.43: Body mass index [BMI] 50.0-59.9, adult) recommend continued diet and exercise. Follow-up No qualifying data available Problem List/Past Medical History Ongoing Achilles tendonitis Adjustment disorder with depressed mood in remission Anal skin tag BMI 50.0-59.9, adult Carpal tunnel syndrome Excessive dietary caloric intake Gastroesophageal reflux disease without esophagitis Hemorrhoids Hypothyroidism Insomnia Metabolic syndrome Migraines Morbid obesity WATTERS (nonalcoholic steatohepatitis) Obstructive sleep apnea Primary hypertension Spondylosis of lumbar spine Tinea versicolor Type 2 diabetes mellitus without complication, without long-term current use of insulin Umbilical hernia Historical No qualifying data Procedure/Surgical History Tonsillectomy and adenoidectomy. Medications Adipex-P 37.5 mg oral capsule, 37.5 mg= 1 cap(s), Oral, Daily, 2 refills busPIRone 5 mg Tab, See Instructions Farxiga 5 mg oral tablet, See Instructions, 1 refills gabapentin 100 mg Cap, 100 mg= 1 cap(s), Oral, Bedtime Knee Brace, See Instructions levothyroxine 100 mcg (0.1 mg) Tab, See Instructions losartan 50 mg Tab, 50 mg= 1 tab(s), Oral, Daily, 1 refills metformin 500 mg Tab, See Instructions metoprolol 25 mg ER Tab, 25 mg= 1 tab(s), Oral, Daily, 1 refills omeprazole 40 mg Cap-DR, See Instructions traZODONE 50 mg Tab, See Instructions, Not taking venlafaxine 150 mg Cap-ER, 150 mg= 1 cap(s), Oral, Daily, 1 refills Allergies penicillin (Unknown) Social History Alcohol - Denies Alcohol Use, 12/26/2022 Substance Abuse - Denies Substance Abuse, 12/26/2022 Tobacco Never (less than 100 in lifetime) Tobacco Use:. Current vaping or e-cigarette use Smokeless Tobacco (more content not included)... [facility] Comment on above: Result Comment: Elec tronically Signed By: ERIKA ZULETA, Brain Ruff\Date and Time Signed: 12/26/22 15:34 EDT Evaluation note 03-30-2022 Note Date & Type Note Facility 03-30-2022 Evaluation note Encounter Date Diagnosis Assessment Notes Mar, Contact with and (suspected) exposure to other viral communicable diseases (ICD-10 - Z20.828) Mar, COVID-19 (ICD-10 - U07.1) Discharge Instructions for COVID-19 (Suspected or Confirmed ) material was printed Drink plenty fluids, get plenty of rest. Take Tylenol or Motrin as needed for aches pains or fevers. You must quarantine for 5 days after the onset of your symptoms of COVID. Follow-up with your family physician if no improvement in 2 to 3 days. [facility] [employer] [facility] Other Evaluation + Plan note Note Date & Type Note Facility Evaluation + Plan note Future Appointments Appointment Date:03/16/2023 04:15:00 PM Scheduled Provider:Thiago Gambino MD Location:[facility] Appointment Type: Open [facility] History general Narrative - Reported Note Date & Type Note Facility History general Narrative - Reported Type Medical History pre diabetes Medical History hypertension Medical History hypothyroid Medical History depression Medical History anxiety Surgical History tonsillectomy & adenoidectomy 2 003 [facility] Other Hospital course Narrative Note Date & Type Note Facility Hospital course Narrative No data available for this section [facility] Discharge instructions Note Date & Type Note Facility Hospital Discharge instructions No data available for this section [facility] Progress note Note Date & Type Note Facility Progress note No data available for this section [facility] Summary Purpose Family History No Family History Records Found No data available for this section No Family History Records Found Advance Directives No Advanced Directives Records FoundNo Advanced Directives Records Found Additional Source Comments REASON FOR VISIT (unrecogniz ed section and content) SINUS CONGESTION- NEEDS COVI D TEST TO RETURN TO WORK INFORMATION SOURCE (unrecogn ized section and content) DATE CREATED AUTHOR 06/14/2022 [facility] DATE CREATED AUTHOR AUTHOR'S ORGANIZ ATION 02/24/2023 [facility] Patient Care team informatio n (unrecognized section and content) Personnel Name: Thiago Gambino MD Address: Address: [address] [place], [place] [address] FOR RECORDS PERTAINING TO PATIENTS WHO ARE OR HAVE BEEN ENROLLED IN A CHEMICAL DEPENDENCY/SUBSTANCEABUSE PROGRAM, SOME INFORMATION MAY BE OMITTED. This clinical summary was aggregated from multiple sources. Caution should be exercised in using it in the provision of clinical care. This summary normalizes information from multiple sources, and as a consequence, information in this document may materially change the coding, format and clinical context of patient data. In addition, data may be omitted in some cases. CLINICAL DECISIONS SHOULD BE BASED ON THE PRIMARY CLINICAL RECORDS. [facility] [employer] provides no warranty or guarantee of the accuracy or completeness of information in this document.
[2023-03-08 03:04] LABS: Adenovirus NOT DETECTED (NOT DETECTE); Bordetella parapertussis NOT DETECTED (NOT DETECTE); Coronavirus 229E NOT DETECTED (NOT DETECTE); Coronavirus HKU1 NOT DETECTED (NOT DETECTE); Coronavirus NL63 NOT DETECTED (NOT DETECTE); Coronavirus OC43 NOT DETECTED (NOT DETECTE); Human Metapneumovirus NOT DETECTED (NOT DETECTE); Human Rhinovirus/Enterovirus NOT DETECTED (NOT DETECTE); Influenza A NOT DETECTED (NOT DETECTE); Influenza B NOT DETECTED (NOT DETECTE); Mycoplasma pneumoniae NOT DETECTED (NOT DETECTE); Parainfluenza Virus 1 NOT DETECTED (NOT DETECTE); Parainfluenza Virus 2 NOT DETECTED (NOT DETECTE); Parainfluenza Virus 3 NOT DETECTED (NOT DETECTE); Parainfluenza Virus 4 NOT DETECTED (NOT DETECTE); Respiratory Syncytial Virus NOT DETECTED (NOT DETECTE); SARS-CoV-2 NOT DETECTED (NOT DETECTE)
--- NOTE | 2023-03-08 03:18 | ED.URI1 ---
HPI - URI/Sore Throat General Chief Complaint: Upper Respiratory Infection Stated Complaint: SOB Time Seen by Provider: 03/08/23 03:16 Source: patient Limitations: no limitations History of Present Illness HPI Narrative: nonproductive cough for one week. not short of breath. Just doesn't feel well. No associated nausea or vomiting Related Data Home Medications Medication Instructions Recorded Confirmed buspirone 5 mg tablet 5 mg PO BID 01/19/23 03/08/23 dapagliflozin propanediol 5 mg 5 mg PO DAILY 01/19/23 03/08/23 tablet (Farxiga) levothyroxine 100 mcg capsule 100 mcg PO DAILY 01/19/23 03/08/23 losartan 50 mg tablet 50 mg PO DAILY 01/19/23 03/08/23 metformin 500 mg tablet 500 mg PO BID 01/19/23 03/08/23 metoprolol succinate 25 mg 25 mg PO DAILY 01/19/23 03/08/23 tablet,extended release 24 hr omeprazole 40 mg capsule,delayed 40 mg PO BID 01/19/23 03/08/23 release phentermine 37.5 mg capsule 37.5 mg PO DAILY 01/19/23 03/08/23 (Adipex-P) trazodone 50 mg tablet 50 mg PO DAILY 01/19/23 03/08/23 venlafaxine 150 mg 150 mg PO DAILY 01/19/23 03/08/23 capsule,extended release 24 hr (Effexor XR) Allergies Allergy/AdvReac Type Severity Reaction Status Date / Time amoxicillin Allergy Severe RASH Verified 03/08/23 02:59 Penicillins Allergy Rash Verified 03/08/23 02:59 Review of Systems ROS Status of ROS 10 or more systems reviewed and unremarkable except as noted in history and below [facility] Medical History (Updated 03/08/23 @ 06:08 by Ottoniel Pemberton MD) Anxiety ?F41.9 - Anxiety disorder, unspecified (ICD-10) Umbilical hernia ?K42.9 - Umbilical hernia without obstruction or gangrene (ICD-10) Diabetes mellitus ?E11.9 - Type 2 diabetes mellitus without complications (ICD-10) Hypertension ?I10 - Essential (primary) hypertension (ICD-10) Sleep apnea ?G47.30 - Sleep apnea, unspecified (ICD-10) Insomnia ?G47.00 - Insomnia, unspecified (ICD-10) Hypothyroidism ?E03.9 - Hypothyroidism, unspecified (ICD-10) Acid reflux ?K21.9 - Gastro-esophageal reflux disease without esophagitis (ICD-10) Carpal tunnel syndrome, bilateral ?G56.03 - Carpal tunnel syndrome, bilateral upper limbs (ICD-10) Anal skin tag ?K64.4 - Residual hemorrhoidal skin tags (ICD-10) Surgical History (Updated 01/19/23 @ 09:23 by Sera Bowman) History of tonsillectomy and adenoidectomy ?Z90.89 - Acquired absence of other organs (ICD-10) Family History (Updated 01/19/23 @ 09:25 by Sera Bowman) Mother Family history of hypertension Father Colon cancer Other Breast cancer Family history of diabetes mellitus Social History (Updated 01/19/23 @ 09:26 by Sera Bowman) Within the past year, how often did you have a drink containing alcohol: never Score interpretation: A score less than 3 is consistent with normal alcohol consumption. 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 Highest level of school completed/degree received: Bachelor's degree Exam Constitutional Vital Signs, click to edit/add: Last Vital Signs Temp 98.5 F 03/08/23 06:32 Pulse 93 H 03/08/23 06:32 Resp 16 03/08/23 06:32 BP 132/87 03/08/23 06:32 Pulse Ox 98 03/08/23 06:32 O2 Del Method Room Air 03/08/23 06:32 Common normals: no apparent distress, oriented x3, no limitations, healthy appearing, alert and well nourished Eye Common normals: EOMs intact bilaterally and conjunctivae normal Respiratory Common normals: normal respiratory effort, no retractions and no use of accessory muscles Cardio Common normals: regular rate, regular rhythm, S1 normal heart sound and S2 normal heart sound GI Common normals: Normal to inspection, nondistended, normoactive bowel sounds present, soft to palpation and non-tender Extremity Common normals: normal to inspection Neuro Common normals: oriented x3, CN's II-XII intact bilaterally, moves all extremities and no focal motor deficits Psych Appearance: grossly normal Course Vital Signs Vital signs: Vital Signs Temperature 98.8 F 03/08/23 02:56 Pulse Rate 104 H 03/08/23 02:56 Respiratory Rate 18 03/08/23 02:56 Blood Pressure 142/91 H 03/08/23 02:56 Pulse Oximetry 98 03/08/23 02:56 Oxygen Delivery Method Room Air 03/08/23 02:56 Temperature 98.5 F 03/08/23 06:32 Pulse Rate 93 H 03/08/23 06:32 Respiratory Rate 16 03/08/23 06:32 Blood Pressure 132/87 03/08/23 06:32 Pulse Oximetry 98 03/08/23 06:32 Oxygen Delivery Method Room Air 03/08/23 06:32 MDM - URI/Sore Throat MDM Narrative Medical decision making narrative: presents with URI symptoms and cough. cxray is clear. exam unremarkable. Swab positive for influenza. Patient stable and discharged home. Lab Data Labs: Lab Results 03/08/23 Range/Units 03:00 Adenovirus (PCR) Not detected (NOT DETECTE) C. pneumoniae DNA (PCR) Not detected (NOT DETECTE) Coronavirus Type OC43 Not detected (NOT DETECTE) Coronavirus Type HKU1 Not detected (NOT DETECTE) Coronavirus Type 229E Not detected (NOT DETECTE) Coronavirus Type NL63 Not detected (NOT DETECTE) Human Metapneumovir PCR Not detected (NOT DETECTE) Influenza A (H3) PCR Detected M. pneumoniae (PCR) Not detected (NOT DETECTE) Parainfluenza PCR Not detected (NOT DETECTE) Parainfluenza 2 (PCR) Not detected (NOT DETECTE) Parainfluenza 3 (PCR) Not detected (NOT DETECTE) Parainfluenza 4 (PCR) Not detected (NOT DETECTE) RSV (RT-PCR) Not detected (NOT DETECTE) Entero/Rhino (PCR) Not detected (NOT DETECTE) SARS-CoV-2 (PCR) Not detected (NOT DETECTE) Bordetella pertussis (PCR) Not detected (NOT DETECTE) B parapertussis DNA PCR Not detected (NOT DETECTE) Influenza Type A (PCR) Not detected (NOT DETECTE) Influenza Type B (PCR) Not detected (NOT DETECTE) Discharge Plan Discharge Chief Complaint: Upper Respiratory Infection Clinical Impression: Influenza Patient Disposition: Home, Self-Care Prescriptions / Home Meds: No Action phentermine [Adipex-P] 37.5 mg capsule 37.5 mg PO DAILY Rx Instructions: must administer 30 minutes before or 1-2 hours after breakfast buspirone 5 mg tablet 5 mg PO BID Patient Comments: takes PRN Farxiga 5 mg tablet 5 mg PO DAILY levothyroxine 100 mcg capsule 100 mcg PO DAILY losartan 50 mg tablet 50 mg PO DAILY metformin 500 mg tablet 500 mg PO BID metoprolol succinate 25 mg tablet extended release 24 hr 25 mg PO DAILY omeprazole 40 mg capsule,delayed release(DR/EC) 40 mg PO BID trazodone 50 mg tablet 50 mg PO DAILY venlafaxine [Effexor XR] 150 mg capsule,extended release 24hr 150 mg PO DAILY Instructions: Influenza (ED), Influenza (DC) Stand Alone Forms: Portal Instructions Referrals: ANDRIY CARD [Primary Care Provider] - 1 week Discharge Date/Time: 03/08/23 07:10
[2023-03-08 03:57] LABS: Influenza A\\H3 DETECTED
[2023-03-08 04:18] VITALS: BP 99/74; PULSE 92; RESP 18; O2SAT 94
[2023-03-08 06:32] VITALS: BP 132/87; PULSE 93; RESP 16; TEMP 36.9; O2SAT 98
== END 2023-03-08 07:10 | disposition home or self-care (01) ==
PROVIDERS: Emergency Provider Internal Medicine; PCP Family Medicine
DX: J10.1 Influenza due to other identified influenza virus with other respiratory manifestations (principal); E11.9 Type 2 diabetes mellitus without complications; I10 Essential (primary) hypertension; G47.30 Sleep apnea, unspecified; G47.00 Insomnia, unspecified; E03.9 Hypothyroidism, unspecified; F41.9 Anxiety disorder, unspecified; K21.9 Gastro-esophageal reflux disease without esophagitis; Z90.89 Acquired absence of other organs; F17.290 Nicotine dependence, other tobacco product, uncomplicated; Z20.822 Contact with and (suspected) exposure to COVID-19; Z79.899 Other long term (current) drug therapy; Z79.84 Long term (current) use of oral hypoglycemic drugs
CPT/HCPCS: 0202U; 71045; 99284

== ENCOUNTER 2024-04-18 07:13 | Emergency (ER) | payer BC, SELFPAY ==
[2024-04-18 07:18] VITALS: BP 157/109; PULSE 102; TEMP 36.8; O2SAT 99; BMI 53.8
[2024-04-18] MEDS: KETOROLAC TROMETHAMINE 60 MG/2 ML VIAL IM (07:50)
[2024-04-18] MEDS: ONDANSETRON 4 MG RAPDIS TABLET SL (08:35)
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
[2024-04-18 09:36] VITALS: BP 146/87; PULSE 98; O2SAT 100
== END 2024-04-18 09:38 | disposition home or self-care (01) ==
PROVIDERS: Emergency Provider Emergency Medicine; PCP Family Medicine
DX: S00.83XA Contusion of other part of head, initial encounter (principal); Y04.8XXA Assault by other bodily force, initial encounter; F17.290 Nicotine dependence, other tobacco product, uncomplicated
CPT/HCPCS: 70450; 70486; 71045; 72131; 96372; 99284; J1885; Q0162

== ENCOUNTER 2024-10-15 18:29 | Emergency (ER) | payer BC, SELFPAY ==
[2024-10-15 18:32] VITALS: BP 164/108; PULSE 81; TEMP 36.9; O2SAT 99; BMI 54.4
--- OUTSIDE RECORDS SUMMARY | 2024-10-15 18:35 | XMS_ITS | Clinical Summary ---
Author Organization [facility] 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
--- OUTSIDE RECORDS SUMMARY | 2024-10-15 18:35 | XMS_ITS | Clinical Summary ---
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 Name Role Phone Unavailable Primary Care Provider Unavailabl e Social History Tobacco Use Types Packs/Day Years Used Date Smoking Tobacco: Never Assessed Comments Unknown Sex and Gender Information Value Date Recorded Sex Assigned at Not on file Legal Sex Female 8:13 PM EDT Gender Identity Not on file Sexual Orientation Not on file Last Filed Vital Signs Vital Sign Reading Time Taken Comments Blood Pressure - - Pulse - - Temperature - - Respiratory Rate - - Oxygen Saturation - - Inhaled Oxygen Concentration - - Weight 209 kg (460 lb) 03/20/2022 12:00 PM EST Height 180.3 cm (5' 11 ) 03/13/2022 12:00 PM EST Body Mass Index 64.16 03/13/2022 12:00 PM EST Plan of Treatment Health Maintenance Due Date Last Done Comments Pap Smear 2010 Cervical Cancer Screening 07/16/2019 HPV/Cotest 07/16/2019 Influenza Vaccine (#1) 2024 Insurance [facility]
--- OUTSIDE RECORDS SUMMARY | 2024-10-15 18:35 | XMS_ITS | CCD ---
Author Organization [facility] Care Team Providers Care Staffing Branch Manager Name Role Phone Deedee Mariano Unavailable SILVESTRE ., DR JERAMY Medina Admitting Unavailable RIVERS ., DR JERAMY Medina Attending Unavailable RIVERS ., DR JERAMY Medina Primary Care Unavailable RIVERS ., DR JERAMY Medina Primary Care Unavailable CHIP CANDELARIA Admitting Unavailable CHIP CANDELARIA Attending Unavailable CHIP CANDELARIA Consulting Unavailable MAYRA OCHOA Consulting Unavailable RIVERS ., DR JERAMY Medina Primary Care Unavailable GRIS, DR CHINA Pete Admitting Unavailable GRIS, DR CHINA Pete Attending Unavailable GRIS, DR CHINA Pete Consulting Unavailable RIVERS ., DR JERAMY Medina Admitting Unavailable RIVERS ., DR JERAMY Medina Attending Unavailable RIVERS ., DR JERAMY Medina Primary Care Unavailable RIVERS ., DR JERAMY Medina Consulting Unavailable RIVERS ., DR JERAMY Medina Admitting Unavailable RIVERS ., DR JERAMY Medina Attending Unavailable RIVERS ., DR JERAMY Medina Primary Care Unavailable RIVERS ., DR JERAMY Medina Consulting Unavailable Thiago Gambino. Primary Care Physician Brain TILLEY Attending Unavailable Thiago Gambino. Attending Unavailable Thiago Gambino. Attending Unavailable Thiago Gambino. Attending Unavailable Thiago Gambino. Attending Unavailable Thiago Gambino. Attending Unavailable Thiago Gambino Attending Unavailable Thiago Gambino Attending Unavailable Zarina, Mohamad A. Admitting Unavailable Mouchli, Mohamad A. Attending Unavailable Morodríguez, Mohamad A. Referring Unavailable Zarina Mohamad A. Attending Unavailable Brain TILLEY Attending Unavailable Laith, ROSELINE Ambrose Attending Unavailable ROSELINE Ozuna Admitting Unavailable Thiago Gambino. Attending Unavailable Zandra Ozuna Attending Unavailable Thiago Gambino Attending Unavailable Thaigo Gambino Admitting Unavailable Thiago Gambino Attending Unavailable Zandra Ozuna Attending Unavailable EDUARDO KENNY Attending Unavailable Zandra Ozuna Attending Unavailable Zandra Ozuna Attending Unavailable Allergies Allergy Classification Reported Allergen(s) Allergy Type Date of Onset Reaction(s) Facility (1 source) Amoxicillin Drug Allergy rash [employer] Other (2 sources) Amoxicillin Drug Allergy 4 [facility] Repository (9 sources) Penicillin; Translations: [penicillin] Drug Allergy Unknown (qualifier value) [facility] Medications Current Medications Medication Drug Class(es) Dates Sig (Normalized) Sig (Original) busPIRone hydrochloride 5 mg oral tablet (1 source) Start: 08-19-2022 take 1 tablet by mouth three times daily as needed for anxiety busPIRone 5 mg Tab See Instructions, TAKE 1 TABLET BY MOUTH 3 TIMES A DAY NEEDED FOR ANXIETY, # 90 tab(s), Refills(s) 0, Pharmacy: [id number], 180.3, cm, 06/23/22 16:07:00 EDT, Height/Length Dosing, 208.7, kg, 06/23/22 16:07:00 EDT, Weight Dosing Start Date: 08/19/22 Status: Ordered dapagliflozin 10 mg oral tablet (6 sources) Sodium-Glucose Cotransporter 2 Inhibitor Start: 06-15-2023 take 1 tablet by mouth once daily Farxiga 10 mg oral tablet 10 mg = 1 tab(s), Oral, Daily, # 90 tab(s), Refills(s) 1, Pharmacy: [id number], 180.3, cm, 06/15/23 16:35:00 EDT, Height/Length Dosing, 174.2, kg, 06/15/23 16:35:00 EDT, Weight Dosing Start Date: 06/15/23 Status: Ordered Start: 09-02-2022 take 1 tablet by shelia th once daily Farxiga 5 mg oral tablet See Instructions, TAKE 1 TABLET BY MOUTH EVERY DAY, # 90 tab(s), Refills(s) 1, Pharmacy: [facility]/pharmacy #[id number], 180.3, cm, 08/21/22 15:16:00 EDT, Height/Length Dosing, 208.7, kg, 06/23/22 16:07:00 EDT, Weight Dosing Start Date: 09/02/22 Status: Ordered Farxiga Active gabapentin 100 mg oral capsule (2 sources) Anti-epileptic Agent Start: 06-20-2022 take 1 capsule by mouth at bedtime gabapentin 100 mg Cap 100 mg = 1 cap(s), Oral, Bedtime, Refills(s) 0 Start Date: 06/20/22 Status: Ordered Gabapentin Activ e Knee Brace (5 sources) Start: 09-16-2022 Knee Brace Kne e Brace, See Instructions, 1 EA, 0, L knee brace for knee pain, [facility], Supply, 180.3, cm, 09/16/22 9:08:00 EDT, Height/Length Dosing, 216.4, kg, 09/16/22 9:08:00 EDT, Weight Dosing Start Date: 09/16/22 Status: Ordered levothyroxine sodium 0.125 mg oral tablet (6 sources) l-Thyroxi ne Start: 08-31-2023 take 1 tablet by mouth once daily levothyroxine 125 mcg (0.125 mg) Tab See Instructions, TAKE 1 TABLET BY MOUTH EVERY DAY, # 90 tab(s), Refills(s) 3, Pharmacy: [id number], 180.3, cm, 07/21/23 15:39:00 EDT, Height/Length Dosing, 175, kg, 07/21/23 15:39:00 EDT, Weight Dosing Start Date: 08/31/23 Status: Ordered Start: 10-08-2022 take 1 tablet by shelia once daily in the morning levothyroxine 100 mcg (0.1 mg) Tab See Instructions, TAKE 1 TABLET BY MOUTH EVERY DAY IN THE MORNING, # 90 tab(s), Refills(s) 3, Pharmacy: [id number], 180.3, cm, 09/16/22 9:08:00 EDT, Height/Length Dosing, 216.4, kg, 09/16/22 9:08:00 EDT, Weight Dosing Start Date: 10/08/22 Status: Ordered Levothyroxine So dium Active losartan potassium 50 mg oral tablet (5 sources) Angiotensin 2 Receptor Deni Start: 08-31-2023 take 1 tablet by mouth once daily losartan 50 mg Tab See Instructions, TAKE 1 TABLET BY MOUTH EVERY DAY, # 90 tab(s), Refills(s) 1, Pharmacy: [id number], 180.3, cm, 07/21/23 15:39:00 EDT, Height/Length Dosing, 175, kg, 07/21/23 15:39:00 EDT, Weight Dosing Start Date: 08/31/23 Status: Ordered Start: 09-02-2022 take 1 tablet by shelia once daily losartan 50 mg Tab 50 mg = 1 tab(s), Oral, Daily, # 90 tab(s), Refills(s) 1, Pharmacy: [facility]/pharmacy #[id number], 180.3, cm, 08/21/22 15:16:00 EDT, Height/Length Dosing, 208.7, kg, 06/23/22 16:07:00 EDT, Weight Dosing Start Date: 09/02/22 Status: Ordered metFORMIN hydrochloride 500 mg oral tablet (5 sources) Biguanide Start: 12-08-2023 take 1 tablet by mouth twice daily metformin 500 mg Tab See Instructions, TAKE 1 TABLET BY MOUTH TWICE A DAY, # 180 tab(s), Refills(s) 4, Pharmacy: [facility]/pharmacy #[id number], 180, cm, 10/19/23 16:00:00 EDT, Height/Length Dosing, 170.3, kg, 10/19/23 16:00:00 EDT, Weight Dosing Start Date: 12/08/23 Status: Ordered Start: 01-05-2023 take 1 tablet by shelia twice daily metformin 500 mg Tab See Instructions, TAKE 1 TABLET BY MOUTH TWICE A DAY, # 180 tab(s), Refills(s) 0, Pharmacy: [id number], 180.3, cm, 12/26/22 14:31:00 EDT, Height/Length Dosing, 184, kg, 12/26/22 14:31:00 EDT, Weight Dosing Start Date: 01/05/23 Status: Ordered Start: 09-22-2022 take 1 tablet by shelia twice daily metformin 500 mg Tab See Instructions, TAKE 1 TABLET BY MOUTH TWICE A DAY, # 180 tab(s), Refills(s) 0, Pharmacy: [facility] [id number], 180.3, cm, 09/16/22 9:08:00 EDT, Height/Length Dosing, 216.4, kg, 09/16/22 9:08:00 EDT, Weight Dosing Start Date: 09/22/22 Status: Ordered 24 hr metoprolol succinate 25 mg extended release oral tablet (6 sources) beta-Adrenergic Deni Start: 12-04-2023 take 1 tablet by mouth once daily metoprolol succinate 25 mg ER Tab 25 mg = 1 tab(s), Oral, Daily, # 90 tab(s), Refills(s) 0, Pharmacy: [facility]/pharmacy #[id number], 180, cm, 10/19/23 16:00:00 EDT, Height/Length Dosing, 170.3, kg, 10/19/23 16:00:00 EDT, Weight Dosing Start Date: 12/04/23 Status: Ordered Start: 08-31-2023 take 1 tablet by shelia th once daily metoprolol succinate 25 mg ER Tab 25 mg = 1 tab(s), Oral, Daily, # 90 tab(s), Refills(s) 0, Pharmacy: [facility]/pharmacy #[id number], 180.3, cm, 07/21/23 15:39:00 EDT, Height/Length Dosing, 175, kg, 07/21/23 15:39:00 EDT, Weight Dosing Start Date: 08/31/23 Status: Ordered Start: 09-02-2022 take 1 tablet by shelia once daily metoprolol 25 mg ER Tab 25 mg = 1 tab(s), Oral, Daily, # 90 tab(s), Refills(s) 1, Pharmacy: [facility]/pharmacy #[id number], 180.3, cm, 08/21/22 15:16:00 EDT, Height/Length Dosing, 208.7, kg, 06/23/22 16:07:00 EDT, Weight Dosing Start Date: 09/02/22 Status: Ordered Metoprolol Succi rubén Active omeprazole 40 mg delayed release oral capsule (5 sources) Proton Pump Inhibitor Start: 12-08-2023 take 1 capsule by mouth twice daily omeprazole 40 mg Cap-DR See Instructions, TAKE 1 CAPSULE BY MOUTH TWICE A DAY, # 180 cap(s), Refills(s) 0, Pharmacy: [facility]/pharmacy #[id number], 180, cm, 10/19/23 16:00:00 EDT, Height/Length Dosing, 170.3, kg, 10/19/23 16:00:00 EDT, Weight Dosing Start Date: 12/08/23 Status: Ordered Start: 03-23-2023 take 1 capsule by [facility] twice daily omeprazole 40 mg Cap-DR See Instructions, TAKE 1 CAPSULE BY MOUTH TWICE A DAY, # 180 cap(s), Refills(s) 0, Pharmacy: [facility] [id number], 180.3, cm, 03/16/23 16:21:00 EST, Height/Length Dosing, 173.2, kg, 03/16/23 16:21:00 EST, Weight Dosing Start Date: 03/23/23 Status: Ordered Start: 11-03-2022 take 1 capsule by [facility] twice daily omeprazole 40 mg Be- See Instructions, TAKE 1 CAPSULE BY MOUTH TWICE A DAY, # 180 cap(s), Refills(s) 0, Pharmacy: [facility] [id number], 180.3, cm, 10/16/22 15:30:00 EDT, Height/Length Dosing, 204.5, kg, 10/16/22 15:30:00 EDT, Weight Dosing Start Date: 11/03/22 Status: Ordered Ozempic (1 source) Ozempic Active phentermine hydrochloride 37.5 mg oral tablet (5 sources) Sympathomimetic Amine Anorectic Start: 03-17-2024 phentermine 37.5 mg Tab 37.5 mg = 1 tab(s), Oral, Daily, BMI 53.45, # 30 tab(s), Refills(s) 0, [id number], cm, 01/04/24 9:31:00 EST, Height/Length Dosing, 165.6, kg, 01/04/24 9:31:00 EST, Weight Dosing Start Date: 03/17/24 Status: Ordered Start: 12-21-2023 take [address] [facility] once daily phentermine 37.5 mg Tab 37.5 mg = 1 tab(s), Oral, Daily, # 30 tab(s), Refills(s) 0, Pharmacy: [facility]/pharmacy #[id number], 180, cm, 12/21/23 16:13:00 EDT, Height/Length Dosing, 166.9, kg, 12/21/23 16:13:00 EDT, Weight Dosing Start Date: 12/21/23 Status: Ordered Start: 09-08-2023 take [address] [facility] once daily phentermine 37.5 mg Tab 37.5 mg = 1 tab(s), Oral, Daily, # 30 tab(s), Refills(s) 0, Pharmacy: [facility]/pharmacy #[id number], 180.3, cm, 09/08/23 15:35:00 EDT, Height/Length Dosing, 172.3, kg, 09/08/23 15:35:00 EDT, Weight Dosing Start Date: 09/08/23 Status: Ordered Start: 12-24-2022 take 1 capsule by [facility] once daily Adipex-P 37.5 mg oral capsule 37.5 mg = 1 cap(s), Oral, Daily, # 30 cap(s), Refills(s) 2, Pharmacy: [facility] #[id number], 180.3, cm, 12/24/22 15:26:00 EDT, Height/Length Dosing, 183.3, kg, 12/24/22 15:26:00 EDT, Weight Dosing Start Date: 12/24/22 Status: Ordered Potassium (1 source) Potassium Active traZODone hydrochloride 50 mg oral tablet (1 source) Serotonin Reuptake Inhibitor Start: 11-12-19 take 0.5 tablet by mouth once daily at bedtime traZODONE 50 mg Tab See Instructions, TAKE 1/2 TABLET BY MOUTH ONCE A DAY AT BEDTIME, # 15 tab(s), Refills(s) 0, Pharmacy: [id number], 180.3, cm, 10/16/22 15:30:00 EDT, Height/Length Dosing, 204.5, kg, 10/16/22 15:30:00 EDT, Weight Dosing Start Date: 11/11/22 Status: Ordered 24 hr venlafaxine 150 mg extended release oral capsule (6 sources) Serotonin and Norepinephrine Reuptake Inhibitor Start: 03-09-19 take 1 capsule by mouth once daily venlafaxine 150 mg Cap-ER See Instructions, TAKE 1 CAPSULE BY MOUTH EVERY DAY, # 90 cap(s), Refills(s) 3, Pharmacy: [id number], 180, cm, 01/04/24 9:31:00 EST, Height/Length Dosing, 165.6, kg, 01/04/24 9:31:00 EST, Weight Dosing Start Date: 03/09/24 Status: Ordered Start: 07-07-2023 take 1 capsule by [facility] once daily venlafaxine 150 mg Cap-ER 150 mg = 1 cap(s), Oral, Daily, # 90 cap(s), Refills(s) 3, Pharmacy: [facility]/pharmacy #[id number], 180.3, cm, 06/15/23 16:35:00 EDT, Height/Length Dosing, 174.2, kg, 06/15/23 16:35:00 EDT, Weight Dosing Start Date: 07/07/23 Status: Ordered Start: 08-28-2022 take 1 capsule by [facility] once daily venlafaxine 150 mg Cap-ER 150 mg = 1 cap(s), Oral, Daily, # 90 cap(s), Refills(s) 1, [id number], 180.3, cm, 08/21/22 15:16:00 EDT, Height/Length Dosing, 208.7, kg, 06/23/22 16:07:00 EDT, Weight Dosing Start Date: 08/28/22 Status: Ordered Effexor Active Problems Active Problems Problem Classification Problem Date Documented Date Episodic/Chronic Abdominal hernia (5 sources) Umbilical hernia 12-24-2022 Episodic Abdominal pain (4 sources) Unspecified abdominal pain; Translations: [UNSPECIFIED ABDOMINAL PAIN] Onset: 06-11-2022 Episodic Adjustment disorders (10 sources) Adjustment disorder with depressed mood in remission; Translations: [Stress and adjustment reaction] Onset: 09-23-2023 06-20-2022 Chronic Diabetes mellitus without complication (5 sources) Type 2 diabetes mellitus without complication; Translations: [Type 2 diabetes mellitus without complications] 08-21-2022 Chronic Esophageal disorders (10 sources) Gastroesophageal reflux disease without esophagitis; Translations: [Gastro-esophageal reflux disease without esophagitis] Onset: 09-23-2023 06-23-2022 Chronic Essential hypertension (5 sources) Essential hypertension 06-23-2022 Chronic Headache; including migraine (5 sources) Migraine 06-20-2022 Chronic Hemorrhoids (11 sources) Residual hemorrhoidal skin tags; Translations: [Residual hemorrhoidal skin tags] Onset: 12-26-2022 Episodic Hepatitis (5 sources) Nonalcoholic steatohepatitis 06-20-2022 Chronic Immunizations and screening for infectious disease (2 sources) Contact with and (suspected) exposure to other viral communicable diseases; Translations: [Contact with and (suspected) exposure to other viral communicable diseases] Episodic Mood disorders (1 source) Major depressive disorder, single episode, unspecified; Translations: [MERCED DEPRESS D/O SINGLE EPIS UNS] Onset: 07-18-2021 Chronic Mycoses (3 sources) Pityriasis versicolor 06-20-2022 Episodic Other connective tissue disease (5 sources) Achilles tendinitis 06-20-2022 Episodic Other connective tissue disease (1 source) Disorder of muscle; Translations: [Other specified disorders of muscle] Onset: 09-23-2023 Episodic Other connective tissue disease (4 sources) Pelvic floor dysfunction 09-23-2023 Episodic Other nervous system disorders (5 sources) Carpal tunnel syndrome 06-20-2022 Chronic Other nutritional; endocrine; and metabolic disorders (1 source) Morbid (severe) obesity due to excess calories; Translations: [MORBID SEVERE OBES D/T EXCESS RYAN] Onset: 07-18-2021 Chronic Other nutritional; endocrine; and metabolic disorders (1 source) Body mass index (BMI) 60.0-69.9, adult; Translations: [BODY MASS INDEX BMI 60.0-69.9 ADULT] Onset: 07-18-2021 Chronic Other nutritional; endocrine; and metabolic disorders (6 sources) Body mass index 40+ - severely obese; Translations: [Body mass index (BMI) 50.0-59.9, adult] Onset: 12-26-2022 Chronic Other nutritional; endocrine; and metabolic disorders (5 sources) Calorie overload 10-16-2022 Chronic Other nutritional; endocrine; and metabolic disorders (3 sources) Metabolic syndrome X 06-20-2022 Chronic Other nutritional; endocrine; and metabolic disorders (5 sources) Morbid obesity 06-20-2022 Chronic Other nutritional; endocrine; and metabolic disorders (1 source) Obesity; Translations: [Other obesity due to excess calories] Onset: 09-23-2023 Chronic Other nutritional; endocrine; and metabolic disorders (4 sources) Obesity caused by energy imbalance 09-23-2023 Chronic Other nutritional; endocrine; and metabolic disorders (1 source) Abnormal weight loss; Translations: [Abnormal weight loss] Onset: 09-23-2023 Episodic Other nutritional; endocrine; and metabolic disorders (4 sources) Weight loss 09-23-2023 Episodic Other skin disorders (2 sources) Inez incarnati 03-16-2023 Episodic Residual codes; unclassified (5 sources) Obstructive sleep apnea syndrome 06-20-2022 Chronic Residual codes; unclassified (5 sources) Insomnia 10-16-2022 Episodic Residual codes; unclassified (1 source) Family history of malignant neoplasm of digestive organ; Translations: [Family history of malignant neoplasm of digestive organs] Onset: 09-23-2023 Episodic Residual codes; unclassified (4 sources) Family history of cancer of colon 07-21-2023 Episodic Spondylosis; intervertebral disc disorders; other back problems (5 sources) Lumbar spondylosis 06-20-2022 Chronic Substance-related disorders (1 source) Nicotine dependence, cigarettes, uncomplicated; Translations: [NICOTINE DEPEND CIGARETTES UNCOMP] Onset: 06-13-2022 Chronic Thyroid disorders (9 sources) Hypothyroidism, unspecified; Translations: [Hypothyroidism] Onset: 10-09-2021 Chronic Unclassified (1 source) Cancer cervix screening status 03-22-2024 Unclassified (1 source) Patient encounter status 03-22-2024 Past or Other Problems Problem Classification Problem [...] 07-18-2021 Episodic Other aftercare (1 source) Other alf (current) drug therapy; Translations: [OTH [facility] CURRENT DRUG THERAPY] Onset: 07-18-2021 Episodic Viral infection (1 source) COVID-19 Results Test Name Value Interpretation Reference Range Facil ity Ambulatory Visit Summaryon 0 10-05-2024 Ambulatory Visit Summary Ambulatory Visit Summary CARLINE EMERSON :1990 Visit Date:10/05/2024 Ambulatory Visit Instructions Your Diagnosis Binge eating disorder Obesity due to excess calories Your Care Team Attending Physician - Zandra Milan Primary Care Physician - Zandra Milan This Is Your Medications List [facility] Prescription (Knee Brace) caffeine-magnesium salicylate (Diurex) dapagliflozin (Farxiga 10 mg oral tablet) levothyroxine (levothyroxine 125 mcg (0.125 mg) Tab) lisdexamfetamine (Vyvanse 20 mg oral capsule) losartan (losartan 50 mg Tab) metformin (metformin 500 mg Tab) metoprolol (metoprolol succinate 25 mg ER Tab) omeprazole (omeprazole 40 mg Cap-DR) phentermine (phentermine 37.5 mg Tab) venlafaxine (venlafaxine 150 mg Cap-ER) Procedures Performed Colonoscopy (10/07/2023), Esophagogastroduodenosc opy, Excision of anal skin tag, Tonsillectomy and adenoidectomy. Discharge Vitals Temperature (Temporal Artery) 36.3 ???C Heart Rate (Peripheral) 84 Respiratory Rate 18 Blood Pressure 124/86 Height 180.0 cm Height 71 in Weight 181.6 kg Weight 400.359 lb BMI 56.05 What to do next Scheduled Follow-Up Appointments Thursday 5:20 PM EDT With: Zandra Milan Where: [place] [id number]- Medications What How Much When Why Instructions New lisdexamfetamine (Vyvanse 20 mg oral capsule) 1 Capsules By Mouth Once a day (in the morning) Binge eating disorder Obesity due to excess calories Pickup at [facility]/pharmacy #[id number] New phentermine (phentermine 37.5 mg Tab) 1 Tablets By Mouth Every day BMI 53.2 dx E66.01 Pickup at [facility]/pharmacy #[id number] Unchanged caffeine-magnesium salicylate (Diurex) 2 Tablets By Mouth Every 6 hours Unchanged dapagliflozin (Farxiga 10 mg oral tablet) 1 Tablets By Mouth Every day Unchanged levothyroxine (levothyroxine 125 mcg (0.125 mg) Tab) See instructions TAKE 1 TABLET BY MOUTH EVERY DAY Unchanged losartan (losartan 50 mg Tab) See instructions TAKE 1 TABLET BY MOUTH EVERY DAY Unchanged metformin (metformin 500 mg Tab) See instructions TAKE 1 TABLET BY MOUTH TWICE A DAY Unchanged metoprolol (metoprolol succinate 25 mg ER Tab) 1 Tablets By Mouth Every day Unchanged Misc Prescription (Knee Brace) See instructions Knee pain L knee brace for knee pain Unchanged omeprazole (omeprazole 40 mg Cap-DR) See instructions TAKE 1 CAPSULE BY MOUTH TWICE A DAY Unchanged venlafaxine (venlafaxine 150 mg Cap-ER) See instructions TAKE 1 CAPSULE BY MOUTH EVERY DAY Pharmacy Information [facility]/pharmacy #[id number]: [address], [place] [id number] [phone] Allergies penicillin (Unknown) Problems Ongoing - Any problem that you are currently receiving treatment for. Achilles tendonitis Adjustment disorder with depressed mood in remission Anal skin tag Binge eating disorder BMI 50.0-59.9, adult Carpal tunnel syndrome Cervical cancer screening Chronic GERD Excessive dietary caloric intake Family hx of colon cancer Gastroesophageal reflux disease without esophagitis Hemorrhoids Hypothyroidism Insomnia Migraines Morbid obesity Morbid obesity with BMI of 50.0-59.9, adult WATTERS (nonalcoholic steatohepatitis) Obesity due to excess calories Obstructive sleep apnea Pelvic floor dysfunction Primary hypertension Spondylosis of lumbar spine Stress-related physiological response affecting physical condition Type 2 diabetes mellitus without complication, without long-term current use of insulin Umbilical hernia Vaginal yeast infection Weight loss Well woman exam Patient Survey You may receive a survey via text or e-mail asking about your office visit. Please share your experience with us by completing your survey. We appreciate your feedback and thank you for choosing us for your care. Patient Portal You may access all of your results and other medical record information on our secure patient portal. If you are not signed up for this yet, please contact Health Information Management at [phone] to get signed up today. Language Information Language assistance services are available as needed. Normal [facility] Family Medicine Office/Clini c Noteon 10-05-2024 Family Medicine Office/Clinic Note Family Medicine Office/Clinic Note HPI Staff Carline is a 34 year old female presenting with med recheck adipex refill needed. 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 this did clear up she is not interested in this any more Weight management Adipex Sleeping well:Yes, 6-8 hours Chest pain:No Tremors:No Headaches:No Heart fluttering:No Blurred Vision:No Weight last visit: 395.50 lbs. Weight this visit: 400 lbs She lift weighs and she has went down a pant size Refills on Adipex if she is still going to stay on this History of Present Illness pt presents today for Adipex-P refill Review of Systems PHQ Score Initial Depression Screen Score: 0 SCORE Physical Exam Vitals & Measurements T: 36.3 ???C(Temporal Artery) HR: 84(Peripheral) RR: 18 BP: 124/86 SpO2: 98% HT: 71 in HT: 180.0 cm WT: 400.359 lb WT: 181.6 kg BMI: 56.05 General: alert, no acute distress ENMT: oral mucosa moist, no pharyngeal erythema or exudate Cardiovascular: regular rate and rhythm, normal peripheral perfusion Respiratory: Lungs CTA, respirations non labored Extremities: no deformity, no trauma Neurological: oriented x 4, LOC appropriate for age, CN II-XII intact, motor strength equal & normal bilaterally, speech normal Assessment/Plan 1. Binge eating disorder (F50.819: Binge eating disorder, unspecified) pt does well with her diet during the day but in the evening she binge eats. BEDS-7 self assessment complete and in chart. will start vyvanse 20mg. RTC 1 month. med agreement updated. UDS performed last week. OARRS reviewed. Ordered: lisdexamfetamine, 20 mg = 1 cap(s), Oral, qAM, # 30 cap(s), Refills(s) 0, Pharmacy: [facility]/pharmacy #[id number], 180, cm, 10/05/24 16:15:00 EDT, Height/Length Dosing, 181.6, kg, 10/05/24 16:15:00 EDT, Weight Dosing 2. Obesity due to excess calories (E66.09: Other obesity due to excess calories) pt is not losing weight. will d/c adipex for now. pt feels it is not suppressing her appetite anymore. Ordered: lisdexamfetamine, 20 mg = 1 cap(s), Oral, qAM, # 30 cap(s), Refills(s) 0, [id number] 180, cm, 10/05/24 16:15:00 EDT, Height/Length Dosing, 181.6, kg, 10/05/24 16:15:00 EDT, Weight Dosing 3. BMI 50.0-59.9, adult (Z68.43: Body mass index [BMI] 50.0-59.9, adult) up another 5 pounds. pt has been going to [facility] Ordered: fluconazole, 150 mg = 1 tab(s), Oral, Once, take 1 tab on day one and 1 tab on day four, # 2 tab(s), Refills(s) 1, [id number], 180, cm, 08/16/24 15:30:00 EDT, Height/Length Dosing, 179.4, kg, 08/16/24 15:30:00 EDT, Weight Dosing Orders: phentermine, 37.5 mg = 1 tab(s), Oral, Daily, BMI 53.2 dx E66.01, # 30 tab(s), Refills(s) 0, [id number], cm, 08/16/24 15:30:00 EDT, Height/Length Dosing, 179.4, kg, 08/16/24 15:30:00 EDT, Weight Dosing phentermine, 37.5 mg = 1 tab(s), Oral, Daily, BMI 53.2 dx E66.01, # 14 tab(s), Refills(s) 0, [id number] 180, cm, 08/16/24 15:30:00 EDT, Height/Length Dosing, 179.4, kg, 08/16/24 15:30:00 EDT, Weight Dosing Follow-up No qualifying data available Problem List/Past Medical History Ongoing Achilles tendonitis Adjustment disorder with depressed mood in remission Anal skin tag Binge eating disorder BMI 50.0-59.9, adult Carpal tunnel syndrome Cervical cancer screening Chronic GERD Excessive dietary caloric intake Family hx of colon cancer Gastroesophageal reflux disease without esophagitis Hemorrhoids Hypothyroidism Insomnia Migraines Morbid obesity Morbid obesity with BMI of 50.0-59.9, adult WATTERS (nonalcoholic steatohepatitis) Obesity due to excess calories Obstructive sleep apnea Pelvic floor dysfunction Primary hypertension Spondylosis of lumbar spine Stress-related physiological response affecting physical condition Type 2 diabetes mellitus without complication, without long-term current use of insulin Umbilical hernia Vaginal yeast infection Weight loss Well woman exam Historical No qualifying data Procedure/Surgical History Colonoscopy (10/07/2023), Esophagogastroduodenosc opy, Excision of anal skin tag, Tonsillectomy and adenoidectomy. Medications Diurex, 2 tab(s), Oral, q6hr Farxiga 10 mg oral tablet, 10 mg= 1 tab(s), Oral, Daily, 4 refills Knee Brace, See Instructions levothyroxine 125 mcg (0.125 mg) Tab, See Instructions losartan 50 mg Tab, See Instructions, 4 refills metformin 500 mg Tab, See Instructions, 4 refills, Still taking, not as prescribed: she is only taking this once a day, metoprolol succinate 25 mg ER Tab, 25 mg= 1 tab(s), Oral, Daily, 4 refills omeprazole 40 mg Cap-DR, See Instructions, Still taking, not as prescribed: only taking this once a day, she forgets to take the 2nd one phentermine 37.5 mg Tab, 37.5 mg= 1 tab(s), Oral, Daily venlafaxine 150 mg Cap-ER, See Instructions Vyvanse 20 mg oral caps (more content not included)... Normal [facility] Comment on above: Result Comment: Elec tronically Signed By: Zandra Milan\.br\Date and Time Signed: 10/05/24 16:40 EDT Family Medicine Office/Clini c Noteon 08-17-2024 Family Medicine Office/Clinic Note Family Medicine Office/Clinic Note HPI Staff Patient is presenting for vaginal itching, burning, discharge, no fevers Onset: yesterday she is prone to yeast infections, she gets them after every period, she usually takes OTC from [facility] sometimes it helps depending on how bad it is History of Present Illness pt presents today for vaginal itching, discharge after cycles Review of Systems PHQ Score Initial Depression Screen Score: 0 SCORE Physical Exam Vitals & Measurements T: 36.2 ???C(Oral) HR: 101(Peripheral) RR: 20 BP: 122/82 SpO2: 97% HT: 71 in HT: 180.0 cm WT: 395.509 lb WT: 179.4 kg BMI: 55.37 General: alert, no acute distress ENMT: oral mucosa moist, no pharyngeal erythema or exudate Cardiovascular: regular rate and rhythm, normal peripheral perfusion Respiratory: Lungs CTA, respirations non labored Extremities: no deformity, no trauma Neurological: oriented x 4, LOC appropriate for age, CN II-XII intact, motor strength equal & normal bilaterally, speech normal Assessment/Plan 1. Vaginal yeast infection (B37.31: Acute candidiasis of vulva and vagina) will send Diflucan. discussed doing culture she wants to hold off for now. will revisit at next visit Ordered: fluconazole, 150 mg = 1 tab(s), Oral, Once, take 1 tab on day one and 1 tab on day four, # 2 tab(s), Refills(s) 1, [id number] 180, cm, 08/16/24 15:30:00 EDT, Height/Length Dosing, 179.4, kg, 08/16/24 15:30:00 EDT, Weight Dosing 2. BMI 50.0-59.9, adult, (Z68.43: Body mass index [BMI] 50.0-59.9, adult)Body mass index [BMI] 50.0-59.9, adult BMI education Ordered: fluconazole, 150 mg = 1 tab(s), Oral, Once, take 1 tab on day one and 1 tab on day four, # 2 tab(s), Refills(s) 1, Pharmacy: [id number], 180, cm, 08/16/24 15:30:00 EDT, Height/Length Dosing, 179.4, kg, 08/16/24 15:30:00 EDT, Weight Dosing 3. Morbid obesity with BMI of 50.0-59.9, adult (E66.01: Morbid (severe) obesity due to excess calories) see above Ordered: fluconazole, 150 mg = 1 tab(s), Oral, Once, take 1 tab on day one and 1 tab on day four, # 2 tab(s), Refills(s) 1, Pharmacy: [id number], 180, cm, 08/16/24 15:30:00 EDT, Height/Length Dosing, 179.4, kg, 08/16/24 15:30:00 EDT, Weight Dosing 4. Vapes nicotine containing substance (Z72.0: Tobacco use) consider not vaping Ordered: fluconazole, 150 mg = 1 tab(s), Oral, Once, take 1 tab on day one and 1 tab on day four, # 2 tab(s), Refills(s) 1, Pharmacy: [id number], 180, cm, 08/16/24 15:30:00 EDT, Height/Length Dosing, 179.4, kg, 08/16/24 15:30:00 EDT, Weight Dosing Follow-up No qualifying data available Problem List/Past Medical History Ongoing Achilles tendonitis Adjustment disorder with depressed mood in remission Anal skin tag BMI 50.0-59.9, adult Carpal tunnel syndrome Cervical cancer screening Chronic GERD Excessive dietary caloric intake Family hx of colon cancer Gastroesophageal reflux disease without esophagitis Hemorrhoids Hypothyroidism Insomnia Migraines Morbid obesity Morbid obesity with BMI of 50.0-59.9, adult WATTERS (nonalcoholic steatohepatitis) Obesity due to excess calories Obstructive sleep apnea Pelvic floor dysfunction Primary hypertension Spondylosis of lumbar spine Stress-related physiological response affecting physical condition Type 2 diabetes mellitus without complication, without long-term current use of insulin Umbilical hernia Vaginal yeast infection Weight loss Well woman exam Historical No qualifying data Procedure/Surgical History Colonoscopy (10/07/2023), Esophagogastroduodenosc opy, Excision of anal skin tag, Tonsillectomy and adenoidectomy. Medications Diflucan 150 mg Tab, 150 mg= 1 tab(s), Oral, Once, 1 refills Farxiga 10 mg oral tablet, 10 mg= 1 tab(s), Oral, Daily, 4 refills Knee Brace, See Instructions levothyroxine 125 mcg (0.125 mg) Tab, See Instructions losartan 50 mg Tab, See Instructions, 4 refills metformin 500 mg Tab, See Instructions, 4 refills metoprolol succinate 25 mg ER Tab, 25 mg= 1 tab(s), Oral, Daily, 4 refills omeprazole 40 mg Cap-DR, See Instructions phentermine 37.5 mg Tab, 37.5 mg= 1 tab(s), Oral, Daily venlafaxine 150 mg Cap-ER, See Instructions Allergies penicillin (Unknown) Social History Alcohol - Denies Alcohol Use, 12/26/2022 Never., 12/21/2023 Substance Abuse Current. Marijuana. 1-2 times per month. Previous treatment: None., 12/21/2023 Tobacco vape Tobacco Use:. Never, Current vaping or e-cigarette use Smokeless Tobacco Use:. Vaping, Household tobacco concerns: No. Yes, 08/16/2024 Family History Asthma: Mother. Breast cancer: Grandparent. Diabetes mellitus type 1: Mother. Hypertension: Mother. Primary malignant neoplasm of colon: Father. Immunizations Vaccine Date Status Comments influenza virus vaccine, inactivated - Not Given Patient Refuses influenza virus vaccine, inactivated - Not Given Postpone due to refusal SARSCo (more content not included)... Normal [facility] Comment on above: Result Comment: Elec tronically Signed By: Zandra Milan\.br\Date and Time Signed: 08/17/24 11:51 EDT Ambulatory Visit Summaryon 0 08-16-2024 Ambulatory Visit Summary Ambulatory Visit Summary CARLINE EMERSON :1990 Visit Date:08/16/2024 Ambulatory Visit Instructions Your Diagnosis BMI 50.0-59.9, adult, Body mass index [BMI] 50.0-59.9, adult Morbid obesity with BMI of 50.0-59.9, adult Vapes nicotine containing substance Vaginal yeast infection Your Care Team Attending Physician - Zandra Milan Primary Care Physician - Thiago Gambino MD This Is Your Medications List [facility] Prescription (Knee Brace) dapagliflozin (Farxiga 10 mg oral tablet) fluconazole (Diflucan 150 mg Tab) levothyroxine (levothyroxine 125 mcg (0.125 mg) Tab) losartan (losartan 50 mg Tab) metformin (metformin 500 mg Tab) metoprolol (metoprolol succinate 25 mg ER Tab) omeprazole (omeprazole 40 mg Cap-DR) phentermine (phentermine 37.5 mg Tab) venlafaxine (venlafaxine 150 mg Cap-ER) Procedures Performed Colonoscopy (10/07/2023), Esophagogastroduodenosc opy, Excision of anal skin tag, Tonsillectomy and adenoidectomy. Discharge Vitals Temperature (Oral) 36.2 ???C Heart Rate (Peripheral) 101 Respiratory Rate 20 Blood Pressure 122/82 Height 180.0 cm Height 71 in Weight 179.4 kg Weight 395.509 lb BMI 55.37 What to do next Scheduled Follow-Up Appointments Thursday 4:00 PM EDT With: Zandra Milan Where: [address] [address]- Medications What How Much When Why Instructions New fluconazole (Diflucan 150 mg Tab) 1 Tablets By Mouth Once BMI 50.0-59.9, adult Morbid obesity with BMI of 50.0-59.9, adult Vapes nicotine containing substance Vaginal yeast infection Refills: 1 take 1 tab on day one and 1 tab on day four Pickup at [facility] #[id number] Unchanged dapagliflozin (Farxiga 10 mg oral tablet) 1 Tablets By Mouth Every day Unchanged levothyroxine (levothyroxine 125 mcg (0.125 mg) Tab) See instructions TAKE 1 TABLET BY MOUTH EVERY DAY Unchanged losartan (losartan 50 mg Tab) See instructions TAKE 1 TABLET BY MOUTH EVERY DAY Unchanged metformin (metformin 500 mg Tab) See instructions TAKE 1 TABLET BY MOUTH TWICE A DAY Unchanged metoprolol (metoprolol succinate 25 mg ER Tab) 1 Tablets By Mouth Every day Unchanged Misc Prescription (Knee Brace) See instructions Knee pain L knee brace for knee pain Unchanged omeprazole (omeprazole 40 mg Cap-DR) See instructions TAKE 1 CAPSULE BY MOUTH TWICE A DAY Unchanged phentermine (phentermine 37.5 mg Tab) 1 Tablets By Mouth Every day BMI 53.9 dx E66.01 Unchanged venlafaxine (venlafaxine 150 mg Cap-ER) See instructions TAKE 1 CAPSULE BY MOUTH EVERY DAY Pharmacy Information [facility]/pharmacy #[id number]: [address], [place] [id number] [phone] Allergies penicillin (Unknown) Problems Ongoing - Any problem that you are currently receiving treatment for. Achilles tendonitis Adjustment disorder with depressed mood in remission Anal skin tag BMI 50.0-59.9, adult Carpal tunnel syndrome Cervical cancer screening Chronic GERD Excessive dietary caloric intake Family hx of colon cancer Gastroesophageal reflux disease without esophagitis Hemorrhoids Hypothyroidism Insomnia Migraines Morbid obesity Morbid obesity with BMI of 50.0-59.9, adult WATTERS (nonalcoholic steatohepatitis) Obesity due to excess calories Obstructive sleep apnea Pelvic floor dysfunction Primary hypertension Spondylosis of lumbar spine Stress-related physiological response affecting physical condition Type 2 diabetes mellitus without complication, without long-term current use of insulin Umbilical hernia Vaginal yeast infection Weight loss Well woman exam Patient Survey You may receive a survey via text or e-mail asking about your office visit. Please share your experience with us by completing your survey. We appreciate your feedback and thank you for choosing us for your care. Patient Portal You may access all of your results and other medical record information on our secure patient portal. If you are not signed up for this yet, please contact [employer] at [phone] to get signed up today. Language Information Language assistance services are available as needed. Normal [facility] Ambulatory Visit Summaryon 0 06-20-2024 Ambulatory Visit Summary Ambulatory Visit Summary CARLINE EMERSON :1990 Visit Date:06/20/2024 Ambulatory Visit Instructions Your Diagnosis Type 2 diabetes mellitus without complication, without long-term current use of insulin Weight loss Obesity due to excess calories Excessive dietary caloric intake Your Care Team Attending Physician - Thiago Gambino MD Primary Care Physician - Thiago Gambino MD This Is Your Medications List [facility] Prescription (Knee Brace) dapagliflozin (Farxiga 10 mg oral tablet) levothyroxine (levothyroxine 125 mcg (0.125 mg) Tab) losartan (losartan 50 mg Tab) metformin (metformin 500 mg Tab) metoprolol (metoprolol succinate 25 mg ER Tab) omeprazole (omeprazole 40 mg Cap-DR) phentermine (phentermine 37.5 mg Tab) venlafaxine (venlafaxine 150 mg Cap-ER) Procedures Performed Colonoscopy (10/07/2023), Esophagogastroduodenosc opy, Excision of anal skin tag, Tonsillectomy and adenoidectomy. Discharge Vitals Temperature (Tympanic) 36.7 ???C Heart Rate (Peripheral) 88 Respiratory Rate 20 Blood Pressure 122/80 Height 180 cm Height 71 in Weight 176.7 kg Weight 389.556 lb BMI 54.54 What to do next Scheduled Follow-Up Appointments Thursday 4:00 PM EDT With: Thiago Gambino MD Where: [facility] [place] [address] [place] [address]- Medications What How Much When Why Instructions Unchanged dapagliflozin (Farxiga 10 mg oral tablet) 1 Tablets By Mouth Every day Unchanged levothyroxine (levothyroxine 125 mcg (0.125 mg) Tab) See instructions TAKE 1 TABLET BY MOUTH EVERY DAY Unchanged losartan (losartan 50 mg Tab) See instructions TAKE 1 TABLET BY MOUTH EVERY DAY Unchanged metformin (metformin 500 mg Tab) See instructions TAKE 1 TABLET BY MOUTH TWICE A DAY Unchanged metoprolol (metoprolol succinate 25 mg ER Tab) 1 Tablets By Mouth Every day Unchanged Misc Prescription (Knee Brace) See instructions Knee pain L knee brace for knee pain Unchanged omeprazole (omeprazole 40 mg Cap-DR) See instructions TAKE 1 CAPSULE BY MOUTH TWICE A DAY Unchanged phentermine (phentermine 37.5 mg Tab) 1 Tablets By Mouth Every day BMI 52.47 dx E66.01 Unchanged venlafaxine (venlafaxine 150 mg Cap-ER) See instructions TAKE 1 CAPSULE BY MOUTH EVERY DAY Allergies penicillin (Unknown) Problems Ongoing - Any problem that you are currently receiving treatment for. Achilles tendonitis Adjustment disorder with depressed mood in remission Anal skin tag BMI 50.0-59.9, adult Carpal tunnel syndrome Cervical cancer screening Chronic GERD Excessive dietary caloric intake Family hx of colon cancer Gastroesophageal reflux disease without esophagitis Hemorrhoids Hypothyroidism Insomnia Migraines Morbid obesity Morbid obesity with BMI of 50.0-59.9, adult WATTERS (nonalcoholic steatohepatitis) Obesity due to excess calories Obstructive sleep apnea Pelvic floor dysfunction Primary hypertension Spondylosis of lumbar spine Stress-related physiological response affecting physical condition Type 2 diabetes mellitus without complication, without long-term current use of insulin Umbilical hernia Weight loss Well woman exam Patient Survey You may receive a survey via text or e-mail asking about your office visit. Please share your experience with us by completing your survey. We appreciate your feedback and thank you for choosing us for your care. Maira Bueno [facility] Family Medicine Office/Clini c Noteon 06-20-2024 Family Medicine Office/Clinic Note Family Medicine Office/Clinic Note Chief Complaint 3m weight management Frustration with weight fluctuation despite exercise efforts HPI Staff 3m weight management follow up Started on phentermine Sleeping well:Yes, 6-8 hours Chest pain:No Tremors:No Headaches:No Heart fluttering:No Blurred Vision:No Starting Weight: 459.03lbs Weight last visit: 394lb Weight this visit: 389lbs Did call 05/23/24 requesting script for yeast infection. Has cleared up. No concerns at this time. Does not need any refills. History of Present Illness - The patient is a 33-year-old female presenting with concerns about weight fluctuation and management. - Weight fluctuates between current and 370 pounds over the past eight months. - Exercises include leg days Thursday-Thursday, cardio on Wednesdays. - Reports frustration with workout intensity and progress. - Diagnosed with obesity due to excess calories and type 2 diabetes, [id number]. - History of polyphagia contributing to excessive caloric intake. - Experiences nausea following bowel movements. - Less stress is reported post-gym, but vaping continues. - Uses diuretics for water retention, adjusting diet to reduce sodium. - Emphasis on protein intake of 150 grams per day for weight management. - Transition from high-sodium intake to low-sodium diet, including sea salt use. - Encouragement to increase hydration and consider water with apple cider vinegar. - Discussion regarding cessation of vaping due to health risks. Review of Systems PHQ Score Initial Depression Screen Score: 0 SCORE Physical Exam Vitals & Measurements T: 36.7 ???C(Tympanic) HR: 88(Peripheral) RR: 20 BP: 122/80 SpO2: 98% HT: 71 in HT: 180 cm WT: 389.556 lb WT: 176.7 kg BMI: 54.54 General: alert, no acute distress ENMT: oral mucosa moist Cardiovascular: Regular rate and rhythm, normal peripheral perfusion Respiratory: Lungs clear to auscultation, respirations non labored Extremities: no deformity, no trauma Neurological: oriented x 4, level of consciousness appropriate for age, CN II-XII intact, motor strength equal & normal bilaterally, speech normal Abdomen: Soft, Non-tender, Non-distended, + Bowel sounds Assessment/Plan 1. Type 2 diabetes mellitus without complication, without long-term current use of insulin (E11.9: Type 2 diabetes mellitus without complications) - Adjust metformin intake to post-meal. - NO other issues at this 2. Weight loss (R63.4: Abnormal weight loss) - Maintain current weight loss trajectory, target 15-30 pound reduction. 3. Obesity due to excess calories (E66.09: Other obesity due to excess calories) - Increase exercise intensity independently. 4. Excessive dietary caloric intake (R63.2: Polyphagia) - Increase protein intake to 150 grams daily. Orders: fluconazole, 150 mg = 1 tab(s), Oral, Once, # 1 tab(s), Refills(s) 0, [facility]acy: [facility] #[id number], 180, cm, 05/10/24 10:13:00 EDT, Height/Length Dosing, 170, kg, 05/10/24 10:13:00 EDT, Weight Dosing phentermine, 37.5 mg = 1 tab(s), Oral, Daily, BMI 51.47 dx E66.01, # 30 tab(s), Refills(s) 0, Pharmacy: [facility]/pharmacy #[id number], 180, cm, 06/20/24 16:22:00 EDT, Height/Length Dosing, 176.7, kg, 06/20/24 16:22:00 EDT, Weight Dosing - 33-year-old female with a history of obesity due to excess calories and type 2 diabetes presenting with weight fluctuation concern. - Weight loss efforts noted. - Current exercise regimen includes cardiovascular and strength training. - Protein intake advised at 150 grams/day. - Metformin intake timing adjusted. - Vaping cessation recommended. During our discussion, I emphasized the importance of adjusting the workout intensity to maximize weight loss efforts. We revisited her dietary intake, focusing on an increased protein regimen of 150 grams per day to assist with satiety and muscle building. I explained that taking metformin after meals could alleviate nausea. We discussed her vaping habit, encouraging her to explore cessation methods as a health improvement strategy. Additionally, we talked about the importance of adequate water intake to support renal clearance, particularly focusing on reducing dietary sodium consumption. We decided to evaluate her progress in three months, aiming for a further 15-30 pound weight reduction. I provided reassurance regarding her achievements, urging her to foster a supportive environment conducive to her health goals. Follow-up No qualifying data available Problem List/Past Medical History Ongoing Achilles tendonitis Adjustment disorder with depressed mood in remission Anal skin tag BMI 50.0-59.9, adult Carpal tunnel syndrome Cervical cancer screening Chronic GERD Excessive dietary caloric intake Family hx of colon cancer Gastroesophageal reflux disease without esophagitis Hemorrhoids Hypothyroidism Insomnia Migraines Morbid obesity Morbid obesity with BMI of 50.0-59.9, adult WATTERS (nonalcoholic steatoh (more content not included)... Normal [facility] Comment on above: Result Comment: Elec tronically Signed By: Immanuel ZULETA, Thiago Elkins\Date and Time Signed: 06/20/24 17:18 EDT PAP [id number] 03-28-2024 C. trachomatis rRNA JADEN+probe Ql (Cvx) Negative Invalid Interpretation Code Negative [facility] Comment on above: Performed By: #### 1 [id number] #### [facility] [address] [place] [address] Cytology report Cyto stain Doc (Cvx/Vag) Note Invalid Interpretation Code [facility] Comment on above: Result Comment: TEST S RESULT FLAG UNITS REF RANGE LAB Clinician Provided Cytology Information Source.............Endocervix No. of containers..01 ThinPrep Vial DIAGNOSIS: 01 NEGATIVE FOR INTRAEPITHELIAL LESION OR MALIGNANCY. Specimen adequacy: 01 Satisfactory for evaluation. Endocervical and/or squamous metaplastic cells (endocervical component) are present. Performed by: Jag Peacock, Database Developer (ASCP) . 01 Note: Note 01 The Pap smear is a screening test designed to aid in the detection of premalignant and malignant conditions of the uterine cervix. It is not a diagnostic procedure and should not be used as the sole means of detecting cervical cancer. Both false-positive and false-negative reports do occur. Test Methodology: Note 01 This liquid based ThinPrep(R) pap test was screened with the use of an image guided system. HPV Genotype Reflex Note 01 Criteria not met, HPV Genotype not performed. FLAG LEGEND: L-Low Normal,H-High Normal,LL-Alert Low,HH-Alert High <-Panic Low,>-Panic High,A-Abnormal,AA-Critical Abnormal Performed at: [address] [id number] Precious Johansen MD, Performed By: #### 1 [id number] #### [facility] [address] [place] [address] HPV 16+18+31+33+35+39 +45+51+52+56+58+5 9+66+68 DNA Probe+sig amp Ql (Cvx) Negative Invalid Interpretation Code Negative [facility] Comment on above: Result Comment: This nucleic acid amplification test detects fourteen high-risk HPV types (16,18,31,33,35,39,45,51,52,56,58,59,66,68) without differentiation. Performed By: #### 1 [id number] #### [facility] [address] [place] [id number] N. gonorrhoeae rRNA JADEN+probe Ql (Cvx) Negative Invalid Interpretation Code Negative [facility] Comment on above: Performed By: #### 1 [id number] #### [facility] [address] [place] [id number] T. vaginalis rRNA JADEN+probe Ql (Unsp spec) Negative Invalid Interpretation Code Negative [facility] Comment on above: Result Comment: Perf ormed at: [address] [id number] MD Eleno Lang Performed at: = [facility] [id number] MD Eleno Lang Performed By: #### 1 [id number] #### [facility] [address] [place] [id number] Ambulatory Visit Summaryon 0 03-22-2024 Ambulatory Visit Summary Ambulatory Visit Summary CARLINE EMERSON :1990 Visit Date:03/22/2024 Ambulatory Visit Instructions Your Diagnosis Well woman exam Vapes nicotine containing substance BMI 50.0-59.9, adult, Body mass index [BMI] 50.0-59.9, adult Morbid obesity with BMI of 50.0-59.9, adult Cervical cancer screening Your Care Team Attending Physician - Zandra Milan Primary Care Physician - Thiago Gambino MD This Is Your Medications List [facility] Prescription (Knee Brace) dapagliflozin (Farxiga 10 mg oral tablet) levothyroxine (levothyroxine 125 mcg (0.125 mg) Tab) losartan (losartan 50 mg Tab) metformin (metformin 500 mg Tab) metoprolol (metoprolol succinate 25 mg ER Tab) omeprazole (omeprazole 40 mg Cap-DR) phentermine (phentermine 37.5 mg Tab) venlafaxine (venlafaxine 150 mg Cap-ER) Procedures Performed Colonoscopy (10/07/2023), Esophagogastroduodenosc opy, Excision of anal skin tag, Tonsillectomy and adenoidectomy. Discharge Vitals Temperature (Oral) 36.4 ???C Heart Rate (Peripheral) 78 Respiratory Rate 18 Blood Pressure 134/86 Height 180.0 cm Height 71 in Weight 178.8 kg Weight 394.186 lb BMI 55.19 What to do next Scheduled Follow-Up Appointments Thursday 4:15 PM EDT With: Thiago Gambino MD Where: [facility] [address] [address]- You Need to Complete the Following PAP [id number] CT/GC/Trich HPV rflx Genotype, Cervical, Routine collect, 03/22/24, Order for future visit, Nurse collect, Well woman exam, Print Label By Order Location, [facility] Medications What How Much When Why Instructions Unchanged dapagliflozin (Farxiga 10 mg oral tablet) 1 Tablets By Mouth Every day Unchanged levothyroxine (levothyroxine 125 mcg (0.125 mg) Tab) See instructions TAKE 1 TABLET BY MOUTH EVERY DAY Unchanged losartan (losartan 50 mg Tab) See instructions TAKE 1 TABLET BY MOUTH EVERY DAY Unchanged metformin (metformin 500 mg Tab) See instructions TAKE 1 TABLET BY MOUTH TWICE A DAY Unchanged metoprolol (metoprolol succinate 25 mg ER Tab) 1 Tablets By Mouth Every day Unchanged Misc Prescription (Knee Brace) See instructions Knee pain L knee brace for knee pain Unchanged omeprazole (omeprazole 40 mg Cap-DR) See instructions TAKE 1 CAPSULE BY MOUTH TWICE A DAY Unchanged phentermine (phentermine 37.5 mg Tab) 1 Tablets By Mouth Every day BMI 53.45 Unchanged venlafaxine (venlafaxine 150 mg Cap-ER) See instructions TAKE 1 CAPSULE BY MOUTH EVERY DAY Allergies penicillin (Unknown) Problems Ongoing - Any problem that you are currently receiving treatment for. Achilles tendonitis Adjustment disorder with depressed mood in remission Anal skin tag BMI 50.0-59.9, adult Carpal tunnel syndrome Cervical cancer screening Chronic GERD Excessive dietary caloric intake Family hx of colon cancer Gastroesophageal reflux disease without esophagitis Hemorrhoids Hypothyroidism Insomnia Migraines Morbid obesity WATTERS (nonalcoholic steatohepatitis) Obesity due to excess calories Obstructive sleep apnea Pelvic floor dysfunction Primary hypertension Spondylosis of lumbar spine Stress-related physiological response affecting physical condition Type 2 diabetes mellitus without complication, without long-term current use of insulin Umbilical hernia Weight loss Well woman exam Patient Survey You may receive a survey via text or e-mail asking about your office visit. Please share your experience with us by completing your survey. We appreciate your feedback and thank you for choosing us for your care. Normal [facility] Family Medicine Office/Clini c Noteon 03-22-2024 Family Medicine Office/Clinic Note Family Medicine Office/Clinic Note HPI Staff Carline is a 33 year old female presenting for well woman Woman check up: Last pap: she never had one done Last [place]: never Results of lap pap: none Where was it done: N/A hx: # of pregnancies..0. abortions... 0 live births... 0 living children... 0 menstrual cycle (normal,heavy,ect): normal, last cycle was Mar 04 History of STD: STI Do you want tested for STD today: yes Vaginal discharge, odor, itching: no Self breast exam at home? no Hx of breast, cervical or uterine cancer in the family: grandmother breast cancer History of Present Illness pt presents today for well woman visit Review of Systems PHQ Score Initial Depression Screen Score: 1 SCORE Physical Exam Vitals & Measurements T: 36.4 ???C(Oral) HR: 78(Peripheral) RR: 18 BP: 134/86 SpO2: 99% HT: 71 in HT: 180.0 cm WT: 178.8 kg WT: 394.186 lb BMI: 55.19 General: Well developed, well nourished, in no acute distress Neck: Neck supple. No masses or palpable cervical nodes. Trachea midline. Thyroid without nodules, masses, tenderness, or enlargement Breast: No mass, nodule, discharge, or erythema bilaterally, and no axillary lymphadenopathy Lungs: Normal respiratory effort and clear to auscultation Cardio: Regular rate and rhythm, normal S1 and S2, no murmur, no rub Abdomen: Soft, non-distended, non-tender, normal bowel sounds x4 Gyno: normal external genitalia. Urethra no discharge. Vagina normal without lesions, no vaginal discharge. Cervix normal, without lesions. Uterus normal. No adnexal masses. Pap obtained cervix was posterior Neurologic: Grossly normal Skin: [place], moist, no tenting Lymph Nodes: No cervical adenopathy, nodes normal Mental Status: Alert and oriented x3. Normal mood and affect Assessment/Plan 1. Well woman exam (Z01.419: Encounter for gynecological examination (general) (routine) without abnormal findings) pt of Dr. Gambino. presents today for well woman visit. BSE discussed. pap obtained. all questions answered. RTC as needed Ordered: Est Preventative 18 to 39 years [id number]/GC/Trich HPV rflx Genotype 2. Cervical cancer screening (Z12.4: Encounter for screening for malignant neoplasm of cervix) pap obtained. cervix was tilted and posterior Ordered: Est Preventative 18 to 39 years [address] 3. Vapes nicotine containing substance (Z72.0: Tobacco use) consider not vaping Ordered: Est Preventative 18 to 39 years [address] 4. BMI 50.0-59.9, adult, (Z68.43: Body mass index [BMI] 50.0-59.9, adult)Body mass index [BMI] 50.0-59.9, adult BMI education. Ordered: Est Preventative 18 to 39 years [address] 5. Morbid obesity with BMI of 50.0-59.9, adult (E66.01: Morbid (severe) obesity due to excess calories) see above Ordered: Est Preventative 18 to 39 years [address] Follow-up No qualifying data available Problem List/Past Medical History Ongoing Achilles tendonitis Adjustment disorder with depressed mood in remission Anal skin tag BMI 50.0-59.9, adult Carpal tunnel syndrome Cervical cancer screening Chronic GERD Excessive dietary caloric intake Family hx of colon cancer Gastroesophageal reflux disease without esophagitis Hemorrhoids Hypothyroidism Insomnia Migraines Morbid obesity WATTERS (nonalcoholic steatohepatitis) Obesity due to excess calories Obstructive sleep apnea Pelvic floor dysfunction Primary hypertension Spondylosis of lumbar spine Stress-related physiological response affecting physical condition Type 2 diabetes mellitus without complication, without long-term current use of insulin Umbilical hernia Weight loss Well woman exam Historical No qualifying data Procedure/Surgical History Colonoscopy (10/07/2023), Esophagogastroduodenosc opy, Excision of anal skin tag, Tonsillectomy and adenoidectomy. Medications Farxiga 10 mg oral tablet, 10 mg= 1 tab(s), Oral, Daily, 1 refills Knee Brace, See Instructions levothyroxine 125 mcg (0.125 mg) Tab, See Instructions losartan 50 mg Tab, See Instructions metformin 500 mg Tab, See Instructions, 4 refills metoprolol succinate 25 mg ER Tab, 25 mg= 1 tab(s), Oral, Daily omeprazole 40 mg Cap-DR, See Instructions phentermine 37.5 mg Tab, 37.5 mg= 1 tab(s), Oral, Daily venlafaxine 150 mg Cap-ER, See Instructions Allergies penicillin (Unknown) Social History Alcohol - Denies Alcohol Use, 12/26/2022 Never., 12/21/2023 Substance Abuse Current. Marijuana. 1-2 times per month. Previous treatment: None., 12/21/2023 Tobacco vape Tobacco Use:. Vaping, 03/22/2024 Family History Asthma: Mother. Breast cancer: Grandparent. Diabetes mellitus type 1: Mother. Hypertension: Mother. Primary malignant neoplasm of colon: Father. Immunizations Vaccine Date Status Comments influenza virus vaccine, inactivated - Not Given Patient Refuses influenza virus vaccine, inactivated - Not Given Postpone due to refusal SARSCoV2 mRNA(togilsonn (more content not included)... Normal [facility] Comment on above: Result Comment: Elec tronically Signed By: Zandra Milan\Date and Time Signed: 03/22/24 10:29 EST PAP [id number] 03-22-2024 Gynecological Body Site [facility] Normal [facility] Comment on above: Performed By: #### 1 [id number] #### [facility] [address] [place] [address] CBC w/ Auto Diffon 4 Basophils/100 WBC (Bld) 0.2 % Normal 0.0-2.0 [facility] Comment on above: Performed By: #### 2 [id number] #### [facility] [address] [place] [address] Basophils/Leukocy hawa Auto (Bld) [Pure # fraction] 0.0 E9/L Normal 0.0-0.2 [facility] Comment on above: Performed By: #### 2 [id number] #### [facility] [address] [place] [address] Eosinophils (Bld) [#/Vol] 0.1 E9/L Normal 0.0-0.5 [facility] Comment on above: Performed By: #### 2 [id number] #### [facility] [address] [place] [address] Eosinophils/100 WBC (Bld) 1.1 % Normal 0.0-8.0 [facility] Comment on above: Performed By: #### 2 [id number] #### [facility] [address] [place] [address] Erythrocyte distribution width (RBC) [Ratio] 15.2 % High 10.9-14.2 [facility] Comment on above: Performed By: #### 2 [id number] #### [facility] [address] [place] [address] Hematocrit (Bld) [Volume fraction] 41.2 % Normal 34.0-46.0 [facility] Comment on above: Performed By: #### 2 [id number] #### [facility] [address] [place] [address] Hemoglobin (Bld) [Mass/Vol] 13.4 g/dL Normal 12.0-16.0 [facility] Comment on above: Performed By: #### 2 [id number] #### [facility] [address] [place] [address] Lymphocytes (Bld) [#/Vol] 2.4 E9/L Normal 1.0-4.0 [facility] Comment on above: Performed By: #### 2 [id number] #### [facility] [address] [place] [address] Lymphocytes/100 WBC (Bld) 23.2 % Normal 14.0-50.0 [facility] Comment on above: Performed By: #### 2 [id number] #### [facility] [address] [place] [address] MCH (RBC) [Entitic mass] 27.9 pg Normal 27.0-34.0 [facility] Comment on above: Performed By: #### 2 [id number] #### [facility] [address] [place] [address] MCHC (RBC) [Mass/Vol] 32.6 g/dL Normal 31.4-36.0 [facility] Comment on above: Performed By: #### 2 [id number] #### [facility] [address] [place] [address] MCV (RBC) [Entitic vol] 85.7 fL Normal 80.0-100.0 [facility] Comment on above: Performed By: #### 2 [id number] #### [facility] [address] [place] [address] Monocytes (Bld) [#/Vol] 0.6 E9/L Normal 0.2-1.0 [facility] Comment on above: Performed By: #### 2 [id number] #### [facility] [address] [place] [address] Neutrophils (Bld) [#/Vol] 7.1 E9/L Normal 2.0-7.5 [facility] Comment on above: Performed By: #### 2 [id number] #### [facility] [address] [place] [address] Neutrophils/100 WBC (Bld) 69.7 % Normal 36.0-75.0 [facility] Comment on above: Performed By: #### 2 [id number] #### [facility] [address] [place] [address] Platelet mean volume (Bld) [Entitic vol] 9.1 fL Normal 6.4-10.8 [facility] Comment on above: Performed By: #### 2 [id number] #### [facility] [address] [place] [address] Platelets (Bld) [#/Vol] 294.0 E9/L Normal 150.0-500.0 [facility] Comment on above: Performed By: #### 2 [id number] #### [facility] [address] [place] [address] RBC (Bld) [#/Vol] 4.8 E12/L Normal 4.3-5.9 [facility] Comment on above: Performed By: #### 2 [id number] #### [facility] [address] [place] [address] WBC corrected for nucl RBC Auto (Bld) [#/Vol] 10.1 E9/L Normal 4.0-11.0 [facility] Comment on above: Performed By: #### 2 [id number] #### [facility] [address] [place] [address] CMPon 12-22-2023 Albumin [Mass/Vol] 4.5 g/dL Normal 3.3-5.0 [facility] Comment on above: Performed By: #### 2 [id number] #### [facility] [address] [place] [address] Albumin/Globulin (S) [Mass conc ratio] 1.6 Normal 1.1-2.2 [facility] Comment on above: Performed By: #### 2 [id number] #### [facility] [address] [place] [address] ALP [Catalytic activity/Vol] 71 Int._Unit/L Normal 21-98 [facility] Comment on above: Performed By: #### 2 [id number] #### [facility] [address] [place] [address] ALT No additional P-5'-P [Catalytic activity/Vol] 27 Int._Unit/L Normal 6-46 [facility] Comment on above: Performed By: #### 2 [id number] #### [facility] [address] [place] [address] Anion gap [Moles/Vol] 11 mmol/L Normal 6-16 [facility] Comment on above: Performed By: #### 2 [id number] #### [facility] [address] [place] [address] AST [Catalytic activity/Vol] 44 Int._Unit/L High 5-43 [facility] Comment on above: Performed By: #### 2 [id number] #### [facility] [address] [place] [address] Bilirubin [Mass/Vol] 0.6 mg/dL Normal 0.0-1.1 [facility] Comment on above: Performed By: #### 2 [id number] #### [facility] [address] [place] [address] Calcium [Mass/Vol] 9.3 mg/dL Normal 8.9-11.1 [facility] Comment on above: Performed By: #### 2 [id number] #### [facility] [address] [place] [address] Chloride [Moles/Vol] 102 mmol/L Normal 101-111 [facility] Comment on above: Performed By: #### 2 [id number] #### [facility] [address] [place] [address] CO2 [Moles/Vol] 28 mmol/L Normal 21-31 [facility] Comment on above: Performed By: #### 2 [id number] #### [facility] [address] [place] [address] Creatinine [Mass/Vol] 0.9 mg/dL Normal 0.5-1.3 [facility] Comment on above: Performed By: #### 2 [id number] #### [facility] [address] [place] [address] Globulin (S) [Mass/Vol] 2.8 g/dL Normal 1.4-4.0 [facility] Comment on above: Performed By: #### 2 [id number] #### [facility] [address] [place] [address] Glucose [Mass/Vol] 84 mg/dL Normal 55-199 [facility] Comment on above: Performed By: #### 2 [id number] #### [facility] [address] [place] [address] Potassium [Moles/Vol] 4.4 mmol/L Normal 3.5-5.3 [facility] Comment on above: Performed By: #### 2 [id number] #### [facility] [address] [place] [address] Protein [Mass/Vol] 7.3 g/dL Normal 6.0-7.8 [facility] Comment on above: Performed By: #### 2 [id number] #### [facility] [address] [place] [address] Sodium [Moles/Vol] 137 mmol/L Normal 135-145 [facility] Comment on above: Performed By: #### 2 [id number] #### [facility] [address] [place] [address] Urea nitrogen [Mass/Vol] 10 mg/dL Normal 5-21 [facility] Comment on above: Performed By: #### 2 [id number] #### [facility] [address] [place] [address] Urea nitrogen/Creatini ne [Mass ratio] 11 No Units Normal 10-20 [facility] Comment on above: Performed By: #### 2 [id number] #### [facility] [address] [place] [address] RuxX9ont 12-22-2023 HbA1c (Bld) [Mass fraction] 5.3 % Normal <=5.9 [facility] Comment on above: Performed By: #### 7 [id number] #### [facility] [address] [place] [address] Lipid Panelon 12-22-2023 Cholesterol [Mass/Vol] 198 mg/dL Normal 120-200 [facility] Comment on above: Performed By: #### 2 [id number] #### [facility] [address] [place] [address] Cholesterol in HDL [Mass/Vol] 46 mg/dL Invalid Interpretation Code [facility] Comment on above: Result Comment: '>= 60 LOW RISK' '<= 40 HIGH RISK' Performed By: #### 2 [id number] #### [facility] [address] [place] [address] Cholesterol in LDL [Mass/Vol] 133 mg/dL High <=129 [facility] Comment on above: Performed By: #### 2 [id number] #### [facility] [address] [place] [address] Cholesterol in VLDL [Mass/Vol] 32 mg/dL Normal 7-40 [facility] Comment on above: Performed By: #### 2 [id number] #### [facility] [address] [place] [address] Triglyceride [Mass/Vol] 159 mg/dL High <=149 [facility] Comment on above: Performed By: #### 2 [id number] #### [facility] [address] [place] [address] TSH With T4fr Reflexon 12-21 TSH Qn 1.56 m[IU]/L Normal 0.34-5.60 [facility] Comment on above: Performed By: #### 1 [id number] #### [facility] [address] [place] [address] U Microalbon 12-22-2023 Albumin DL <= 20 mg/L (U) [Mass/Vol] 1.9 mg/dL Normal 0.0-1.9 [facility] Comment on above: Performed By: #### 1 [id number] #### [facility] [address] [place] [address] eGFRon 12-22-2023 eGFR 86 mL/min/1.73 m2 Normal >=59 [facility] Comment on above: Performed By: #### 1 [id number] #### [facility] [address] [place] [address] Family Medicine Office/Clini c Noteon 12-21-2023 Family Medicine Office/Clinic Note Family Medicine Office/Clinic Note HPI Staff Carline is a 33 year old female presenting for 2 month follow up weight Weight management Sleeping well: Yes, 6-8 hours she's trying Chest pain:No Tremors:No Headaches:No Heart fluttering:No Blurred Vision:No Starting Weight: 459.03 Weight last visit: 374. 66 Weight this visit: 367. questions/concerns: has HSA form that needs filled out History of Present Illness Patient is here for full physical. No complaints today. Patient has not had a Pap. Patient needs lab work for physical. Patient continues to lose weight. Needs an A1c. Review of Systems PHQ Score Initial Depression Screen Score: 0 SCORE Physical Exam Vitals & Measurements T: 36.5 ???C(Temporal Artery) HR: 84(Peripheral) RR: 16 BP: 128/84 SpO2: 98% HT: 71 in HT: 180 cm WT: 166.9 kg WT: 367.18 lb BMI: 51.51 General: alert, no acute distress, morbidly obese ENMT: oral mucosa moist, Cardiovascular: regular rate and rhythm, normal peripheral perfusion Respiratory: Lungs CTA, respirations non labored Extremities: no deformity, no trauma Neurological: oriented x 4, LOC appropriate for age, CN II-XII intact, motor strength equal & normal bilaterally, speech normal Abdomen: Soft, Nontender, Non-distended, + BS Assessment/Plan 1. Physical exam (Z00.00: Encounter for general adult medical examination without abnormal findings) Anticipatory guidance given. Discussed diet and exercise. Discussed immunizations. Ordered: CBC w/ Auto Diff Comprehensive Metabolic Panel Est Preventative 18 to 39 years [address] HgbA1c Lipid Panel Microalbumin Level Urine TSH With T4fr Reflex 2. Excessive dietary caloric intake (R63.2: Polyphagia) Patient is doing well with weight loss. Encourage diet and exercise. Will continue Adipex. Ordered: CBC w/ Auto Diff Comprehensive Metabolic Panel Est Preventative 18 to 39 years [address] HgbA1c Lipid Panel Microalbumin Level Urine TSH With T4fr Reflex 3. Vaping-related disorder (U07.0: Vaping-related disorder) Please stop using nicotine products. If you need help please let us know. Ordered: CBC w/ Auto Diff Comprehensive Metabolic Panel Est Preventative 18 to 39 years [address] HgbA1c Lipid Panel Microalbumin Level Urine TSH With T4fr Reflex 4. Primary hypertension (I10: Essential (primary) hypertension) Blood pressure is well-controlled today. Will continue to monitor. Ordered: CBC w/ Auto Diff Comprehensive Metabolic Panel Est Preventative 18 to 39 years [address] HgbA1c Lipid Panel Microalbumin Level Urine TSH With T4fr Reflex 5. Type 2 diabetes mellitus without complication, without long-term current use of insulin (E11.9: Type 2 diabetes mellitus without complications) Labs checked today. Adjust medication as needed. Ordered: CBC w/ Auto Diff Comprehensive Metabolic Panel Est Preventative 18 to 39 years [address] HgbA1c Lipid Panel Microalbumin Level Urine TSH With T4fr Reflex 6. Hypothyroidism (E03.9: Hypothyroidism, unspecified) Checking labs today. Will adjust medication as needed. Ordered: CBC w/ Auto Diff Comprehensive Metabolic Panel Est Preventative 18 to 39 years [address] HgbA1c Lipid Panel Microalbumin Level Urine TSH With T4fr Reflex 7. BMI 50.0-59.9, adult (Z68.43: Body mass index [BMI] 50.0-59.9, adult) BMI education added Ordered: CBC w/ Auto Diff Comprehensive Metabolic Panel Est Preventative 18 to 39 years [address] HgbA1c Lipid Panel Microalbumin Level Urine TSH With T4fr Reflex 8. Morbid obesity with body mass index (BMI) of 50.0 to 59.9 in adult (E66.01: Morbid (severe) obesity due to excess calories) Diet and exercise advised Ordered: CBC w/ Auto Diff Comprehensive Metabolic Panel Est Preventative 18 to 39 years [address] HgbA1c Lipid Panel Microalbumin Level Urine TSH With T4fr Reflex Orders: phentermine, 37.5 mg = 1 tab(s), Oral, Daily, # 30 tab(s), Refills(s) 0, Pharmacy: [facility]/pharmacy #[id number], 180, cm, 12/21/23 16:13:00 EDT, Height/Length Dosing, 166.9, kg, 12/21/23 16:13:00 EDT, Weight Dosing Follow-up No qualifying data available Patient Education BMI for Adults Problem List/Past Medical History Ongoing Achilles tendonitis Adjustment disorder with depressed mood in remission Anal skin tag BMI 50.0-59.9, adult Carpal tunnel syndrome Chronic GERD Excessive dietary caloric intake Family hx of colon cancer Gastroesophageal reflux disease without esophagitis Hemorrhoids Hypothyroidism Insomnia Migraines Morbid obesity WATTERS (nonalcoholic steatohepatitis) Obesity due to excess calories Obstructive sleep apnea Pelvic floor dysfunction Primary hypertension Spondylosis of lumbar spine Stress-related physiological response affecting physical condition Type 2 diabetes mellitus without complication, without long-term current use of insulin Umbilical hernia Weight loss Historical No qualifying data Procedure/Surg (more content not included)... Normal [facility] Comment on above: Result Comment: Elec tronically Signed By: Thiago Gambino MD\.br\Date and Time Signed: 12/21/23 16:29 EDT Ambulatory Visit Summaryon 0 10-19-2023 Ambulatory Visit Summary Ambulatory Visit Summary CARLINE EMERSON :1990 Visit Date:10/19/2023 Ambulatory Visit Instructions Your Diagnosis Excessive dietary caloric intake BMI 50.0-59.9, adult Class 3 severe obesity due to excess calories with body mass index (BMI) of 60.0 to 69.9 in adult Vaping-related disorder Body mass index [BMI] 60.0-69.9, adult Your Care Team Attending Physician - Thiago Gambino MD Primary Care Physician - Thiago Gambino MD This Is Your Medications List [facility] Prescription (Knee Brace) dapagliflozin (Farxiga 10 mg oral tablet) levothyroxine (levothyroxine 125 mcg (0.125 mg) Tab) losartan (losartan 50 mg Tab) metformin (metformin 500 mg Tab) metoprolol (metoprolol succinate 25 mg ER Tab) omeprazole (omeprazole 40 mg Cap-DR) phentermine (phentermine 37.5 mg Tab) venlafaxine (venlafaxine 150 mg Cap-ER) Procedures Performed Colonoscopy (10/07/2023), Esophagogastroduodenosc opy, Excision of anal skin tag, Tonsillectomy and adenoidectomy. Discharge Vitals Temperature (Oral) 37.1 ?C Heart Rate (Peripheral) 90 Respiratory Rate 16 Blood Pressure 132/80 Height 180 cm Height 71 in Weight 170.3 kg Weight 374.66 lb BMI 52.56 What to do next Scheduled Follow-Up Appointments Thursday 4:00 PM EDT With: Immanuel ZULETA, Thiago Tirado Where: [place] [id number]- Medications What How Much When Why Instructions Unchanged dapagliflozin (Farxiga 10 mg oral tablet) 1 Tablets By Mouth Every day Unchanged levothyroxine (levothyroxine 125 mcg (0.125 mg) Tab) See instructions TAKE 1 TABLET BY MOUTH EVERY DAY Unchanged losartan (losartan 50 mg Tab) See instructions TAKE 1 TABLET BY MOUTH EVERY DAY Unchanged metformin (metformin 500 mg Tab) See instructions TAKE 1 TABLET BY MOUTH TWICE A DAY Unchanged metoprolol (metoprolol succinate 25 mg ER Tab) 1 Tablets By Mouth Every day Unchanged Misc Prescription (Knee Brace) See instructions Knee pain L knee brace for knee pain Unchanged omeprazole (omeprazole 40 mg Cap-DR) See instructions TAKE 1 CAPSULE BY MOUTH TWICE A DAY Unchanged phentermine (phentermine 37.5 mg Tab) 1 Tablets By Mouth Every day Unchanged venlafaxine (venlafaxine 150 mg Cap-ER) 1 Capsules By Mouth Every day Allergies penicillin (Unknown) Problems Ongoing - Any problem that you are currently receiving treatment for. Achilles tendonitis Adjustment disorder with depressed mood in remission Anal skin tag BMI 50.0-59.9, adult Carpal tunnel syndrome Chronic GERD Excessive dietary caloric intake Family hx of colon cancer Gastroesophageal reflux disease without esophagitis Hemorrhoids Hypothyroidism Ingrown hair Insomnia Metabolic syndrome Migraines Morbid obesity WATTERS (nonalcoholic steatohepatitis) Obesity due to excess calories Obstructive sleep apnea Pelvic floor dysfunction Primary hypertension Spondylosis of lumbar spine Stress-related physiological response affecting physical condition Tinea versicolor Type 2 diabetes mellitus without complication, without long-term current use of insulin Umbilical hernia Weight loss Patient Survey You may receive a survey via text or e-mail asking about your office visit. Please share your experience with us by completing your survey. We appreciate your feedback and thank you for choosing us for your care. Normal [facility] Family Medicine Office/Clini c Noteon 10-19-2023 Family Medicine Office/Clinic Note Family Medicine Office/Clinic Note HPI Staff Carline is a 33 year old female presenting for one month follow up weight Weight management Sleeping well:Yes, 6-8 hours Chest pain:No Tremors:No Headaches:No Heart fluttering:No Blurred Vision:No Starting Weight: 459.03 Weight last visit: 379.06 Weight this visit: 374. questions/concerns: none will need adipex in 2 weeks, can send now and they will hold History of Present Illness - See staff HPI. Review of Systems PHQ Score Initial Depression Screen Score: 0 SCORE Physical Exam Vitals & Measurements T: 37.1 ?C(Oral) HR: 90(Peripheral) RR: 16 BP: 132/80 SpO2: 98% HT: 71 in HT: 180 cm WT: 170.3 kg WT: 374.66 lb BMI: 52.56 General: alert, no acute distress ENMT: oral mucosa moist, Cardiovascular: regular rate and rhythm, normal peripheral perfusion Respiratory: Lungs CTA, respirations non labored Extremities: no deformity, no trauma Neurological: oriented x 4, LOC appropriate for age, CN II-XII intact, motor strength equal & normal bilaterally, speech normal Abdomen: Soft, Nontender, Non-distended, + BS Assessment/Plan 1. Excessive dietary caloric intake (R63.2: Polyphagia) - Doing well. - Has a personal care assistant - Continue on adipex. 2. BMI 50.0-59.9, adult (Z68.43: Body mass index [BMI] 50.0-59.9, adult) - BMI education added 3. Class 3 severe obesity due to excess calories with body mass index (BMI) of 60.0 to 69.9 in adult (E66.01: Morbid (severe) obesity due to excess calories) - Diet and exercise advised 4. Vaping-related disorder (U07.0: Vaping-related disorder) - Please stop vaping 5. UTI symptoms (R39.9: Unspecified symptoms and signs involving the genitourinary system) - Will do doxy and look at medicine to prevent UTI's in the future. - Has increase 2/2 farxiga. Orders: doxycycline, 100 mg = 1 tab(s), Oral, q12hr, X 7 day(s), # 14 tab(s), Refills(s) 0, Pharmacy: [id number], 180, cm, 10/19/23 16:00:00 EDT, Height/Length Dosing, 170.3, kg, 10/19/23 16:00:00 EDT, Weight Dosing phentermine, 37.5 mg = 1 tab(s), Oral, Daily, # 30 tab(s), Refills(s) 0, [id number], 180, cm, 10/19/23 16:00:00 EDT, Height/Length Dosing, 170.3, kg, 10/19/23 16:00:00 EDT, Weight Dosing Follow-up No qualifying data available Patient Education BMI for Adults Problem List/Past Medical History Ongoing Achilles tendonitis Adjustment disorder with depressed mood in remission Anal skin tag BMI 50.0-59.9, adult Carpal tunnel syndrome Chronic GERD Excessive dietary caloric intake Family hx of colon cancer Gastroesophageal reflux disease without esophagitis Hemorrhoids Hypothyroidism Ingrown hair Insomnia Metabolic syndrome Migraines Morbid obesity WATTERS (nonalcoholic steatohepatitis) Obesity due to excess calories Obstructive sleep apnea Pelvic floor dysfunction Primary hypertension Spondylosis of lumbar spine Stress-related physiological response affecting physical condition Tinea versicolor Type 2 diabetes mellitus without complication, without long-term current use of insulin Umbilical hernia UTI symptoms Weight loss Historical No qualifying data Procedure/Surgical History Colonoscopy (10/07/2023), Esophagogastroduodenosc opy, Excision of anal skin tag, Tonsillectomy and adenoidectomy. Medications doxycycline hyclate 100 mg Tab, 100 mg= 1 tab(s), Oral, q12hr Farxiga 10 mg oral tablet, 10 mg= 1 tab(s), Oral, Daily, 1 refills Knee Brace, See Instructions levothyroxine 125 mcg (0.125 mg) Tab, See Instructions losartan 50 mg Tab, See Instructions metformin 500 mg Tab, See Instructions metoprolol succinate 25 mg ER Tab, 25 mg= 1 tab(s), Oral, Daily omeprazole 40 mg Cap-DR, See Instructions phentermine 37.5 mg Tab, 37.5 mg= 1 tab(s), Oral, Daily venlafaxine 150 mg Cap-ER, 150 mg= 1 cap(s), Oral, Daily, 3 refills Allergies penicillin (Unknown) Social History Alcohol - Denies Alcohol Use, 12/26/2022 Substance Abuse Current, Marijuana, 1-2 times per month, 09/23/2023 Tobacco Never (less than 100 in lifetime) Tobacco Use:. Current vaping or e-cigarette use Smokeless Tobacco Use:. Vaping, Started age 25.0 Years. Yes, 10/19/2023 Family History Asthma: Mother. Diabetes mellitus type 1: Mother. Hypertension: Mother. Primary malignant neoplasm of colon: Father. Immunizations Vaccine Date Status Comments influenza virus vaccine, inactivated - Not Given Patient Refuses influenza virus vaccine, inactivated - Not Given Postpone due to refusal SARSCoV2 mRNA(xylejoiws-glxa-mld ros) vac 05/08/2021 Recorded SARSCoV2 mRNA(ccorashlk-rqnh-gbu ros) vac 04/15/2021 Recorded hepatitis B pediatric vaccine 02/22/2008 Recorded Hep A, unspecified formulation 02/22/2008 Recorded hepatitis B pediatric vaccine 09/21/2007 Recorded diphtheria/pertussis, acel/tetanus adult 08/19/2007 Recorded hepatitis B pediatric vaccine 08/19/2007 Recorded Hep A, unspecified formulation 0 (more content not included)... Normal [facility] Comment on above: Result Comment: Elec tronically Signed By: Immanuel ZULETA, Thiago Tirado\.br\Date and Time Signed: 10/19/23 16:33 EDT 07 Addendum Reporton 024 07 Addendum Report [facility] [address] [place] [address]- Surgical Pathology Report Collected Date/Time: 10/07/2023 09:15 EDT Pathologist: Babita ZULETA, Jamshid Received Date/Time: 10/07/2023 11:28 EDT Zarina ZULETA, Katherine Srinivasan MD, Katherine Mendez Addendum Report - 10/09/2023 16:10 EDT - Auth (Verified) Addendum H. Pylori immunostain is negative for H. Pylori. (Electronic Signature) Emanuel Arango MD 10/09/2023 16:10 Addendum Reason H. Pylori immunostain. 07 Surgical Pathology Report - 10/08/2023 13:32 EDT - Auth (Verified) Final Diagnosis A: STOMACH, BIOPSY: - Antral and oxyntic-type gastric mucosa with minimal chronic inactive gastritis and focal dilated glands suggestive of fundic gland polyp. - See comment. B: COLON, TRANSVERSE, POLYPECTOMY: -Tubular adenoma. - See Comment. (Electronic Signature) Yan. Babita MD 10/08/2023 13:32 Diagnosis Comment Helicobacter pylori immunohistochemical stain performed on the tissue block A is pending and will follow as addendum report. Separate fragment of oxyntic-type gastric mucosa with focal chronic inflammation is present in specimen B . Clinical Information Pre-Op Diagnosis: Chronic GRED, family history of colon cancer Procedure: EGD, colonoscopy Post-Op Diagnosis: 1. Mild reflux esophagitis 2. Gastropathy 3. Transverse colon polyps -resected 4. Internal hemorrhoids Specimen(s) Received A.Gastric biopsy B.Transverse colon polyps x2 Gross Description A: Received in formalin labeled with patient name, number, and gastric biopsy are multiple fragments of osullivan longo tissue ranging from less than 0.1 cm up to 0.4 cm in greatest dimension. Specimen is entirely submitted in one cassette. B: Received in formalin labeled with patient name, number, and transverse colon polyps are four fragments of longo/pink tissue ranging from 0.2 cm up to 0.8 cm in greatest dimension and Surgical Pathology Report Collected Date/Time: 10/07/2023 09:15 EDT Pathologist: Jamshid Jc MD Received Date/Time: 10/07/2023 11:28 EDT Zarina ZULETA, Katherine Srinivasan MD, Katherine Justice Gross Description measuring in aggregate 1.4 x 0.8 x 0.1 cm. The specimen is entirely submitted in one cassette. (DC) DC:[facility] Microscopic Description A&B: Microscopic examination performed unless gross only specified. The use of one or more reagents in the above tests is regulated as an analyte specific reagent (ASR). The test or tests are ordered following initial H&E microscopic examination. The performance characteristics were determined by the Laboratory [facility]. They have not been cleared or approved by the US Food and Drug Administration. The FDA has determined that such clearance or approval is not necessary. These tests are used for clinical purposes. They should not be regarded as investigational or for research. Appropriate positive and negative controls are performed and are acceptable. [facility] Comment on above: Performed By: #### C D:[id number] #### [facility] [address] [place] [address] Main OR Intraoperative Recor don 10-08-2023 Main OR Intraoperative Record Main OR Intraoperative Record IntraOp Document Type FT Summary Primary Physician: Katherine Srinivasan MD Finalized Date/Time: 10/08/23 08:27:30 Pt. Name: CARLINE EMERSON Torin/Sex: 1990 Female Med Rec #: [id number] Physician: Katherine Srinivasan MD Financial #: [id number] Pt. Type: O Room/Bed: / Admit/Disch: 10/07/23 07:51:26 - 10/07/23 23:59:59 Institution: Case Times FT Entry 1 Patient Times In Room 10/07/23 09:06:00 Out Room 10/07/23 09:38:00 Procedure Times Start 10/07/23 09:11:00 Stop 10/07/23 09:37:00 Anesthesia Times Start 10/07/23 09:06:00 Stop 10/07/23 09:38:00 Time at [place] 10/07/23 09:20:00 Last Modified By: Jesus Saucedo RN 10/07/23 09:39:39 General Comments: 913 EGD completed MSRN 0915 Colonoscopy started MSRN 10/08/23 Chart opened to review and send charges [facility]oth CSFA Case Attendance FT Entry 1 Entry 2 Entry 3 Case Attendee Gagandeep Sullivan DO, RN, Gwendolyn Schultz Role Performed Anesthesiologist of Sawdust Machine Operator - Primary Staff - Other Record Time In 10/07/23 09:06:00 10/07/23 09:06:00 10/07/23 09:06:00 Time Out 10/07/23 09:38:00 10/07/23 09:38:00 10/07/23 09:38:00 Procedure EGD AND COLONOSCOPY(.) EGD AND COLONOSCOPY(.) EGD AND COLONOSCOPY(.) Comments help in room Last Modified By: Lewis ROOT, Jesus Saucedo RN, Jesus Ruelas RN 10/07/23 09:39:40 08/14/24 09:39:40 10/07/23 09:39:40 Entry 4 Entry 5 Case Attendee Sophia BOSCH, Abbie Srinivasan MD, Katherine Thomas Role Performed Scrub - Primary Surgeon - Primary Time In 10/07/23 09:06:00 10/07/23 09:06:00 Time Out 10/07/23 09:38:00 10/07/23 09:38:00 Procedure EGD AND COLONOSCOPY(.) EGD AND COLONOSCOPY(.) Comments Last Modified By: Jesus Saucedo RN, RN, Morgan E 10/07/23 09:39:40 10/07/23 09:39:40 Perioperative Protocols FT Pre-Care Text: Implements protective measures prior to operative or invasive procedure, confirms identity before the operative or invasive procedure, verifies operative procedure, surgical site, and laterality Entry 1 Procedure(s) EGD AND COLONOSCOPY(.) Patient Identity Birthday, ID Band Verified (select at Check, Patient least 2): Participation Consents / H and P Anesthesia Consent, Operative Site N/A Verified H&P, Surgery/Procedure Marking Verified Consent Surgical Site No Laterality Verified n/a Verified Procedure Verified Yes Correct Patient Yes Position Verified Availability Equipment, Medication Prep Dry n/a Verified (If Applicable) PreOp Antibiotic No Time Out Jesus Saucedo RN, Given Participants Gagandeep Sullivan DO, Sophia BOSCH, Zarina Friedman MD, Katherine Justice Time Out Complete 10/07/23 09:10:00 Outcomes Met? Yes Last Modified By: Jesus Saucedo RN 10/07/23 09:10:17 Post-Care Text: The patient is free from signs and symptoms of injury caused by extraneous objects Allergy Information FT Pre-Care Text: Verifies allergies Entry 1 Allergies Reviewed? Yes Allergies Reviewed Self/Patient With Outcomes Met? Yes Last Modified By: Jesus Saucedo RN 10/07/23 09:10:23 Post-Care Text: The patient received appropriate medication(s) safely administered during the perioperative period Surgical Procedures FT Entry 1 Procedure Description Procedure EGD AND COLONOSCOPY Modifiers . Surgeon Description EGD with gastric biopsy. Colonoscopy with transverse colon polypectomy x2 Primary Procedure Yes Primary Surgeon Zarina ZULETA, Katherine Justice Start 10/07/23 09:11:00 Stop 10/07/23 09:37:00 Anesthesia Type General Surgical Service Gastroenterology Wound Class 2 - Clean-Contaminated Last Modified By: Jesus Saucedo RN 10/07/23 09:37:53 General Case Data FT Pre-Care Text: Classifies surgical wound, implements aseptic technique, initiates traffic control Entry 1 Case Information OR ENDO 1 FT Case Level Level 2 Wound Class 2 - Clean-Contaminated Specialty Gastroenterology ASA Class 3 Preop Diagnosis Chronic GERD, Family Postop Same As Preop No history of colon cancer Postop Diagnosis EGD- Gastropathy, Outcomes Met? Yes Esophagitis. Colonoscopy- Transverse colon polyps x2, Internal hemorrhoids Last Modified By: Jesus Saucedo RN 10/07/23 09:39:52 Post-Care Text: The patient is free from signs and symptoms of infection Skin Assessment (Pre Procedure) FT Pre-Care Text: Implements protective measures to prevent skin/ tissue injury due to thermal or mechanical sources Evaluates for signs and symptoms of physical injury to skin and tissue Entry 1 Skin Integrity Dry, Warm Skin Abnormality No Outcomes Met? Yes Last Modified By: Jesus Saucedo RN 10/07/23 09:11:57 Post-Care Text: The patient is free from signs and symptoms of injury caused by extraneous objects Patient Positioning FT Pre-Care Text: Identifies physical alterations that require additional precautions for procedure-specific positioning, verifi (more content not included)... Normal [facility] Surgical Pathology Reporton 10-08-2023 Surgical Pathology Report [address] [address]- Surgical Pathology Report Collected Date/Time: 10/07/2023 09:15 EDT Pathologist: Jamshid Jc MD Received Date/Time: 10/07/2023 11:28 EDT Zarina ZULETA, Katherine Srinivasan MD, Katherine Mendez Surgical Pathology Report - 10/08/2023 13:32 EDT - Auth (Verified) Final Diagnosis A: STOMACH, BIOPSY: - Antral and oxyntic-type gastric mucosa with minimal chronic inactive gastritis and focal dilated glands suggestive of fundic gland polyp. - See comment. B: COLON, TRANSVERSE, POLYPECTOMY: -Tubular adenoma. - See Comment. (Electronic Signature) Yan. Babita MD 10/08/2023 13:32 Diagnosis Comment Helicobacter pylori immunohistochemical stain performed on the tissue block A is pending and will follow as addendum report. Separate fragment of oxyntic-type gastric mucosa with focal chronic inflammation is present in specimen B . Clinical Information Pre-Op Diagnosis: Chronic GRED, family history of colon cancer Procedure: EGD, colonoscopy Post-Op Diagnosis: 1. Mild reflux esophagitis 2. Gastropathy 3. Transverse colon polyps -resected 4. Internal hemorrhoids Specimen(s) Received A.Gastric biopsy B.Transverse colon polyps x2 Gross Description A: Received in formalin labeled with patient name, number, and gastric biopsy are multiple fragments of osullivan longo tissue ranging from less than 0.1 cm up to 0.4 cm in greatest dimension. Specimen is entirely submitted in one cassette. B: Received in formalin labeled with patient name, number, and transverse colon polyps are four fragments of longo/pink tissue ranging from 0.2 cm up to 0.8 cm in greatest dimension and measuring in aggregate 1.4 x 0.8 x 0.1 cm. The specimen is entirely submitted in one cassette. (DC) DC:[facility] Microscopic Description A&B: Microscopic examination performed unless gross only specified. The use of one or more reagents in the above tests is regulated as an analyte specific reagent (ASR). The test or tests are ordered following initial H&E microscopic examination. The performance characteristics were determined by the [facility]. They have not been cleared or approved by the US Food and Drug Administration. The Surgical Pathology Report Collected Date/Time: 10/07/2023 09:15 EDT Pathologist: Jamshid Jc MD Received Date/Time: 10/07/2023 11:28 EDT Zarina ZULETA, Katherine Srinivasan MD, Katherine Justice Microscopic Description FDA has determined that such clearance or approval is not necessary. These tests are used for clinical purposes. They should not be regarded as investigational or for research. Appropriate positive and negative controls are performed and are acceptable. Normal [facility] Comment on above: Performed By: #### [id number] #### [facility] [address] [place] [address] Discharge Instructionson Discharge Instructions Discharge Instructions CARLINE EMERSON DOB:1990 Visit Date:10/07/2023 Inpatient Discharge Instructions Your Care Team Admitting Physician - Katherine Srinivasan MD Referring Physician - Katherine Srinivasan MD Reason for Your Visit FAMILY HISTORY OF COLON CANCER, CHRONIC GERD, PELVIC FLOOR DISFUNCTION, STRESS RELATED PHYSIOLOGICAL RESPONSE AFFECTING PHYSICAL CONDITION, WEIGHT LOS Your Diagnosis Esophagitis, reflux Gastropathy Polyp of transverse colon Tests Performed Pathology Tissue Exam -- Results Pending -- Please visit your patient portal for your results or contact your primary care physician. This Is Your Medications List [facility] Prescription (Knee Brace) dapagliflozin (Farxiga 10 mg oral tablet) levothyroxine (levothyroxine 125 mcg (0.125 mg) Tab) losartan (losartan 50 mg Tab) metformin (metformin 500 mg Tab) metoprolol (metoprolol succinate 25 mg ER Tab) omeprazole (omeprazole 40 mg Cap-DR) phentermine (phentermine 37.5 mg Tab) venlafaxine (venlafaxine 150 mg Cap-ER) Procedure History Excision of anal skin tag, Tonsillectomy and adenoidectomy. Discharge Vitals Temperature (Temporal Artery) 36.6 ?C Heart Rate (Monitored) 82 Respiratory Rate 19 Blood Pressure 121/86 Height 180 cm Weight 171.5 kg BMI 52.93 What to do next Instructions From Your Doctor No qualifying data available. Previously Scheduled Follow-Up Appointments Thursday 5:45 PM EDT With: Immanuel ZULETA, Thiago Tirado Where: [address] [address]- New Follow Up Appointments after Discharge Follow Up with Katherine Srinivasan When: Within 1 to 2 weeks Where: [address] [place] [address] [address] [place] [phone] Business (1) Medications What How Much When Why Instructions Next Dose Unchanged dapagliflozin (Farxiga 10 mg oral tablet) 1 Tablets By Mouth Every day Unchanged levothyroxine (levothyroxine 125 mcg (0.125 mg) Tab) See instructions TAKE 1 TABLET BY MOUTH EVERY DAY Unchanged losartan (losartan 50 mg Tab) See instructions TAKE 1 TABLET BY MOUTH EVERY DAY Unchanged metformin (metformin 500 mg Tab) See instructions TAKE 1 TABLET BY MOUTH TWICE A DAY Unchanged metoprolol (metoprolol succinate 25 mg ER Tab) 1 Tablets By Mouth Every day Unchanged Misc Prescription (Knee Brace) See instructions Knee pain L knee brace for knee pain Unchanged omeprazole (omeprazole 40 mg Cap-DR) See instructions TAKE 1 CAPSULE BY MOUTH TWICE A DAY Unchanged phentermine (phentermine 37.5 mg Tab) 1 Tablets By Mouth Every day Unchanged venlafaxine (venlafaxine 150 mg Cap-ER) 1 Capsules By Mouth Every day Test Results No qualifying data available. Allergies penicillin (Unknown) Problems Ongoing - Any problem that you are currently receiving treatment for. Achilles tendonitis Adjustment disorder with depressed mood in remission Anal skin tag BMI 50.0-59.9, adult Carpal tunnel syndrome Chronic GERD Excessive dietary caloric intake Family hx of colon cancer Gastroesophageal reflux disease without esophagitis Hemorrhoids Hypothyroidism Ingrown hair Insomnia Metabolic syndrome Migraines Morbid obesity WATTERS (nonalcoholic steatohepatitis) Obesity due to excess calories Obstructive sleep apnea Pelvic floor dysfunction Primary hypertension Spondylosis of lumbar spine Stress-related physiological response affecting physical condition Tinea versicolor Type 2 diabetes mellitus without complication, without long-term current use of insulin Umbilical hernia Weight loss Education Materials Esophagitis Esophagitis is inflammation of the esophagus. The esophagus is the tube that carries food from the mouth to the stomach. Esophagitis can cause soreness or pain in the esophagus. This condition can make it difficult and painful to swallow. What are the causes? Most causes of esophagitis are not serious. Common causes of this condition include: ? Gastroesophageal reflux disease (GERD). This is when stomach contents move back up into the esophagus (reflux). ? Repeated vomiting. ? An allergic reaction, especially caused by food allergies (eosinophilic esophagitis). ? Injury to the esophagus by swallowing large pills with or without water, or swallowing certain types of medicines. ? Swallowing harmful chemicals, such as household cleaning products. ? Drinking a lot of alcohol. ? An infection of the esophagus. This most often occurs in people who have a weakened immune system. ? Radiation or chemotherapy treatment for cancer. ? Certain diseases such as sarcoidosis, Crohn's disease, and scleroderma. What are the signs or symptoms? Symptoms of this condition include: ? Difficult or painful swallowing. ? Pain with swallowing acidic liquids, such as citrus juices. You may also have pain when you b (more content not included)... Normal [facility] Comment on above: Result Comment: Elec tronically Signed By: Zoë Green RN\.br\Date and Time Signed: 10/07/23 09:48 EDT Main OR PACU I Recordon 09-23 Main OR PACU I Record Main OR PACU I Record PACU Phase I Document Type FT Summary Primary Physician: Katherine Srinivasan MD Finalized Date/Time: 10/07/23 10:17:12 Pt. Name: CARLINE EMERSON /Sex: 1990 Female Med Rec #: [id number] Physician: Katherine Srinivasan MD Financial #: [id number] Pt. Type: O Room/Bed: / Admit/Disch: 10/07/23 07:51:26 - Institution: Case Times PACU I FT Pre-Care Text: Identifies barriers to communication and implements measures to provide psychological support Develops individualized plan of care, and ensures continuity of care Maintains patient's dignity and privacy, and maintains patient confidentiality Identifies and reports philosophical, cultural, and spiritual beliefs and values Identifies individual values and wishes concerning care Implements aseptic technique, and administers prescribed antibiotic therapy and immunizing agents as ordered Evaluates postoperative tissue perfusion Implements thermoregulation measures, and monitors body temperature Evaluates postoperative respiratory status Evaluates postoperative cardiac status Evaluates postoperative neurological status Assesses pain control, collaborated in initiating patient-controlled analgesia and implements alternative methods of pain control Verifies allergies, administers prescribed medications and solutions, evaluates response to medications Entry 1 In PACU I 10/07/23 09:40:00 Discharge from PACU 10/07/23 10:10:00 I Outcomes Met? Yes Last Modified By: Zoë Green RN 10/07/23 10:16:52 Post-Care Text: The patient demonstrates knowledge of the expected response to the operative or invasive procedure The patient's care is consistent with the individualized perioperative plan of care The patient's right to privacy is maintained The patient's value system, lifestyle, ethnicity, and culture are considered, respected, and incorporated into the perioperative plan of care The patient participates in decisions affecting his or her perioperative plan of care The patient is free from signs and symptoms of infection The patient has wound/tissue perfusion consistent with or improved from baseline levels established preoperatively The patient is at or returning to normothermia at the conclusion of the immediate postoperative period The patient's respiratory function is consistent with or improved from baseline levels established preoperatively The patient's cardiovascular status is consistent with or improved from baseline levels established preoperatively The patient's cardiovascular status is consistent with or improved from baseline levels established preoperatively The patient demonstrates and/or reports adequate pain control throughout the perioperative period The patient received appropriate medication(s), safely administered during the perioperative period Acuity Level PACU I FT Entry 1 Start Time 10/07/23 09:40:00 Stop Time 10/07/23 10:10:00 Acuity Level Acuity Level I Last Modified By: Zoë Green RN 10/07/23 10:17:07 Finalized By: Zoë Green RN Document Signatures Signed By: Zoë Green RN 10/07/23 10:17 Normal [facility] Main OR Preoperative Recordo n 10-07-2023 Main OR Preoperative Record Main OR Preoperative Record Holding Area Document Type FT Summary Primary Physician: Katherine Srinivasan MD Finalized Date/Time: 10/07/23 08:18:14 Pt. Name: KICARLINE/Sex: 1990 Female Med Rec #: [id number] Physician: Katherine Srinivasan MD Financial #: [id number] Pt. Type: O Room/Bed: / Admit/Disch: 10/07/23 07:51:26 - Institution: [facility] Holding FT Pre-Care Text: Verifies consent for planned procedure, identifies individual values and wishes concerning care, includes family members in perioperative teaching Secures patient's records' belongings, and valuables, maintains patient's dignity and privacy, and maintains patient confidentiality Entry 1 In Holding 10/07/23 08:08:00 Outcomes Met? Yes Last Modified By: Jesus Saucedo RN 10/07/23 08:17:00 Post-Care Text: The patient participates in decisions affecting his or her perioperative plan of care The patient's right to privacy is maintained Surgery Checklist FT Entry 1 Patient Birthday, ID Band Procedure History and Physical, Identification: Check, Patient Verification: Surgical Consent, With Participation Patient NPO after Midnight: No Date/Time: 10/07/23 03:00:00 Results Reviewed black liquid bowel Personal Items: Jewelry Comments: results Personal Items clothing, shoes, wtach Limitations: none Comment: Complaints of Pain: No Pain Comment: denies Operative Site n/a Marked By: n/a Marking: Location: n/a Availability Equipment Verified: Does Patient Smoke Yes If Yes to Smoking. vapes Cigars or Cigarettes. How much per day? Patient states Yes Comment - Adult Laura postop adult Supervision supervision available Case Cancelled in No Holding Area see comments below for reason Last Modified By: Jesus Saucedo RN 10/07/23 08:18:12 General Comments: pt finished bowel prep at 0330, per patient nothing to eat or drink since MSRN Finalized By: Jesus Saucedo RN Document Signatures Signed By: Jesus Saucedo RN 10/07/23 08:18 Normal [facility] Operative Reporton Operative Report Operative Report Patient: CARLINE EMERSON Age: 33 years Sex: Female : 1990 Associated Diagnoses: None Author: Katherine Srinivasan MD Pre-Procedure Procedure Date 10/07/2023 09:40:00 . Procedure Type: Colonoscopy with removal of tumor(s), polyp(s), or other lesion(s) by cold snare technique. Procedure provider Performed by Katherine Srinivasan MD. Current history and physical Documented on chart. Tonsillectomy and adenoidectomy ([id number]). Excision of anal skin tag ([id number]).. Past Medical History No active or resolved past medical history items have been selected or recorded.. Family History Primary malignant neoplasm of colon Father Asthma Mother Hypertension Mother Diabetes mellitus type 1 Mother . Procedure History Tonsillectomy and adenoidectomy (008150857). Excision of anal skin tag ([id number]).. Colorectal neoplasm risk assessment High risk Family history of colon cancer. . Informed Consent After discussing the rationale, risks and benefits, and alternatives to this procedure, the patient provided signed consent for the procedure. Pre-procedure diagnosis: Surveillance: Family history of colon cancer. Medications (Selected) Inpatient Medications Ordered Lactated Ringers IV Flor 1000 mL 1,000 mL: 1,000 mL, IV, 100 mL/hr, Routine, Start date 10/07/23 8:19:00 EDT, 10 hour(s), Total volume (mL): 1,000, 171.5 kg, 2.93, m2 Sodium Chloride 0.9% IV Flor 1000 mL 1,000 mL: 1,000 mL, IV, 20 mL/hr, Routine, Start date 10/07/23 6:51:00 EDT, 50 hour(s), Total volume (mL): 1,000, 171.5 kg, 2.93, m2 Prescriptions Prescribed Farxiga 10 mg oral tablet: 10 mg = 1 tab(s), Oral, Daily, # 90 tab(s), Refills(s) 1, Pharmacy: [id number], 180.3, cm, 06/15/23 16:35:00 EDT, Height/Length Dosing, 174.2, kg, 06/15/23 16:35:00 EDT, Weight Dosing Knee Brace: Knee Brace, See Instructions, 1 EA, 0, L knee brace for knee pain, [facility], Supply, 180.3, cm, 09/16/22 9:08:00 EDT, Height/Length Dosing, 216.4, kg, 09/16/22 9:08:00 EDT, Weight Dosing levothyroxine 125 mcg (0.125 mg) Tab: See Instructions, TAKE 1 TABLET BY MOUTH EVERY DAY, # 90 tab(s), Refills(s) 3, Pharmacy: [id number], 180.3, cm, 07/21/23 15:39:00 EDT, Height/Length Dosing, 175, kg, 07/21/23 15:39:00 EDT, Weight Dosing losartan 50 mg Tab: See Instructions, TAKE 1 TABLET BY MOUTH EVERY DAY, # 90 tab(s), Refills(s) 1, Pharmacy: [id number], 180.3, cm, 07/21/23 15:39:00 EDT, Height/Length Dosing, 175, kg, 07/21/23 15:39:00 EDT, Weight Dosing metformin 500 mg Tab: See Instructions, TAKE 1 TABLET BY MOUTH TWICE A DAY, # 180 tab(s), Refills(s) 0, Pharmacy: [id number], 180.3, cm, 12/26/22 14:31:00 EDT, Height/Length Dosing, 184, kg, 12/26/22 14:31:00 EDT, Weight Dosing metoprolol succinate 25 mg ER Tab: 25 mg = 1 tab(s), Oral, Daily, # 90 tab(s), Refills(s) 0, Pharmacy: [facility]/pharmacy #[id number], 180.3, cm, 07/21/23 15:39:00 EDT, Height/Length Dosing, 175, kg, 07/21/23 15:39:00 EDT, Weight Dosing omeprazole 40 mg Cap-DR: See Instructions, TAKE 1 CAPSULE BY MOUTH TWICE A DAY, # 180 cap(s), Refills(s) 0, Pharmacy: [facility], 180.3, cm, 03/16/23 16:21:00 EST, Height/Length Dosing, 173.2, kg, 03/16/23 16:21:00 EST, Weight Dosing phentermine 37.5 mg Tab: 37.5 mg = 1 tab(s), Oral, Daily, # 30 tab(s), Refills(s) 0, [id number], 180.3, cm, 09/08/23 15:35:00 EDT, Height/Length Dosing, 172.3, kg, 09/08/23 15:35:00 EDT, Weight Dosing venlafaxine 150 mg Cap-ER: 150 mg = 1 cap(s), Oral, Daily, # 90 cap(s), Refills(s) 3, [id number], 180.3, cm, 06/15/23 16:35:00 EDT, Height/Length Dosing, 174.2, kg, 06/15/23 16:35:00 EDT, Weight Dosing Anticoagulant/antiplate let None. ASA Classification: Class III. . Monitoring: See anesthesia record. . Procedure The procedure was performed in the hospital. See anesthesia record for sedation given during procedure. The patient was positioned starting in the left lateral decubitus position. Endoscope type used was an adult-size. The endoscope was lubricated then introduced through the anus. The scope was advanced to the cecum. No difficulties encountered during the procedure. The bowel preparation quality was excellent and was adequate (see polyps greater than or equal to 6 millimeters). The patient tolerated the procedure well. Time to Cecum: 5 min Withdrawal time 16 min Last colonoscopy: None Findings 1. Normal rectal exam 2. Five mm sessile polyp x 2 seen in the transverse colon resected with cold snare completely 3. Internal hemorrhoids 4. Normal TI Images Procedure images: [id number]_hd_video_2023__1 [id number].jpg Rec1_hd_video_2023_08_1 [id number].jpg Rec1_hd_video_2023_08_1 [id number].jpg Rec1_hd_video_2023__1 [id number].jpg R (more content not included)... Normal [facility] Comment on above: Result Comment: Elec tronically Signed By: Zarina ZULETA, Katherine Justice\.br\Date and Time Signed: 10/07/23 09:41 EDT Other Comment: Kathleen rodrigues Attachment - attachment storage system not supported [id number] Can be viewed in source systemMissing Attachment - attachment storage system not supported [id number] Can be viewed in source systemMissing Attachment - attachment storage system not supported [id number] Can be viewed in source systemMissing Attachment - attachment storage system not supported [id number] Can be viewed in source systemMissing Attachment - attachment storage system not supported [id number] Can be viewed in source systemMissing Attachment - attachment storage system not supported [id number] Can be viewed in source systemMissing Attachment - attachment storage system not supported [id number] Can be viewed in source systemMissing Attachment - attachment storage system not supported [id number] Can be viewed in source systemMissing Attachment - attachment storage system not supported [id number] Can be viewed in source systemMissing Attachment - attachment storage system not supported [id number] Can be viewed in source system Operative Report Operative Report Patient: CARLINE EMERSON Age: 33 years Sex: Female : 1990 Associated Diagnoses: None Author: Katherine Srinivasan MD Pre-Procedure Procedure Date 10/07/2023 09:38:00 . Procedure Type: Esophagogastroduodenosc opy with biopsy. Procedure provider Performed by Katherine Srinivasan MD. Current history and physical Documented on chart. Informed Consent After discussing the rationale, risks and benefits, and alternatives to this procedure, the patient provided signed consent for the procedure. Pre-procedure diagnosis: anemia. Medications (Selected) Inpatient Medications Ordered Lactated Ringers IV Flor 1000 mL 1,000 mL: 1,000 mL, IV, 100 mL/hr, Routine, Start date 10/07/23 8:19:00 EDT, 10 hour(s), Total volume (mL): 1,000, 171.5 kg, 2.93, m2 Sodium Chloride 0.9% IV Flor 1000 mL 1,000 mL: 1,000 mL, IV, 20 mL/hr, Routine, Start date 10/07/23 6:51:00 EDT, 50 hour(s), Total volume (mL): 1,000, 171.5 kg, 2.93, m2 Prescriptions Prescribed Farxiga 10 mg oral tablet: 10 mg = 1 tab(s), Oral, Daily, # 90 tab(s), Refills(s) 1, Pharmacy: [facility] #[id number], 180.3, cm, 06/15/23 16:35:00 EDT, Height/Length Dosing, 174.2, kg, 06/15/23 16:35:00 EDT, Weight Dosing Knee Brace: Knee Brace, See Instructions, 1 EA, 0, L knee brace for knee pain, [facility], [facility], 180.3, cm, 09/16/22 9:08:00 EDT, Height/Length Dosing, 216.4, kg, 09/16/22 9:08:00 EDT, Weight Dosing levothyroxine 125 mcg (0.125 mg) Tab: See Instructions, TAKE 1 TABLET BY MOUTH EVERY DAY, # 90 tab(s), Refills(s) 3, Pharmacy: [facility] [id number], 180.3, cm, 07/21/23 15:39:00 EDT, Height/Length Dosing, 175, kg, 07/21/23 15:39:00 EDT, Weight Dosing losartan 50 mg Tab: See Instructions, TAKE 1 TABLET BY MOUTH EVERY DAY, # 90 tab(s), Refills(s) 1, Pharmacy: [id number], 180.3, cm, 07/21/23 15:39:00 EDT, Height/Length Dosing, 175, kg, 07/21/23 15:39:00 EDT, Weight Dosing metformin 500 mg Tab: See Instructions, TAKE 1 TABLET BY MOUTH TWICE A DAY, # 180 tab(s), Refills(s) 0, Pharmacy: [id number], 180.3, cm, 12/26/22 14:31:00 EDT, Height/Length Dosing, 184, kg, 12/26/22 14:31:00 EDT, Weight Dosing metoprolol succinate 25 mg ER Tab: 25 mg = 1 tab(s), Oral, Daily, # 90 tab(s), Refills(s) 0, [id number], 180.3, cm, 07/21/23 15:39:00 EDT, Height/Length Dosing, 175, kg, 07/21/23 15:39:00 EDT, Weight Dosing omeprazole 40 mg Cap-DR: See Instructions, TAKE 1 CAPSULE BY MOUTH TWICE A DAY, # 180 cap(s), Refills(s) 0, Pharmacy: [facility] [address], 180.3, cm, 03/16/23 16:21:00 EST, Height/Length Dosing, 173.2, kg, 03/16/23 16:21:00 EST, Weight Dosing phentermine 37.5 mg Tab: 37.5 mg = 1 tab(s), Oral, Daily, # 30 tab(s), Refills(s) 0, [id number], 180.3, cm, 09/08/23 15:35:00 EDT, Height/Length Dosing, 172.3, kg, 09/08/23 15:35:00 EDT, Weight Dosing venlafaxine 150 mg Cap-ER: 150 mg = 1 cap(s), Oral, Daily, # 90 cap(s), Refills(s) 3, [id number], 180.3, cm, 06/15/23 16:35:00 EDT, Height/Length Dosing, 174.2, kg, 06/15/23 16:35:00 EDT, Weight Dosing Anticoagulant/antiplate let None. ASA Classification: Class III. . Monitoring: See anesthesia record. . Procedure The procedure was performed in the hospital. See anesthesia record for sedation given during procedure. The patient was positioned starting in the left lateral decubitus position and with safety measures. Endoscope type used was an adult-size, introduced orally, advanced to the 2nd portion of the duodenum. No difficulty was encountered during the procedure. Views were excellent. The patient tolerated the procedure well. Findings 1. Normal esophagus. Z-line at 41 cm. Mild reflux esophagitis. 2. Erythema in the antrum, mild patchy. Otherwise normal stomach. Biopsies of the stomach were taken to rule out H. pylori. 3. Normal duodenum. Images Procedure images: Rec1_hd_video__1 [id number].jpg Rec1_hd_video__1 [id number]__[id number].jpg Rec1_hd_video__1 [id number].jpg Rec1_hd_video__1 4T08_[id number].jpg Rec1_hd_video__1 [id number].jpg Rec1_hd_video__1 4T08_[id number].jpg Rec1_hd_video__1 4T08_[id number].jpg . Post-Procedure Complications: none. Estimated blood loss: minimal. Specimens: sent to pathology. Devices/ implants: none left in place. Impression and Plan mild reflux esophagitis Gastropathy Recommendations: -Resume previous diet -Resume home medications -Await pathology results, follow in GI clinic in 1-2 after discharge [facility] Comment on above: Result Comment: Elec tronically Signed By: Zarina ZULETA, Katherine Cruz.raji\Date and Time Signed: 10/07/23 09:39 EDT Other Comment: Kathleen rodrigues Attachment - attachment storage system not supported [id number] Can be viewed in source systemMissing Attachment - attachment storage system not supported [id number] Can be viewed in source systemMissing Attachment - attachment storage system not supported [id number] Can be viewed in source systemMissing Attachment - attachment storage system not supported [id number] Can be viewed in source systemMissing Attachment - attachment storage system not supported [id number] Can be viewed in source systemMissing Attachment - attachment storage system not supported [id number] Can be viewed in source systemMissing Attachment - attachment storage system not supported [id number] Can be viewed in source system Ambulatory Visit Summaryon 0 09-08-2023 Ambulatory Visit Summary Ambulatory Visit Summary CARLINE EMERSON :1990 Visit Date:09/08/2023 Ambulatory Visit Instructions Your Diagnosis Excessive dietary caloric intake BMI 50.0-59.9, adult, Body mass index [BMI] 50.0-59.9, adult Class 3 severe obesity due to excess calories with body mass index (BMI) of 50.0 to 59.9 in adult Vaping-related disorder Your Care Team Attending Physician - Thiago Gambino MD. Primary Care Physician - Thiago Gambino MD. This Is Your Medications List [facility] Prescription (Knee Brace) dapagliflozin (Farxiga 10 mg oral tablet) levothyroxine (levothyroxine 125 mcg (0.125 mg) Tab) losartan (losartan 50 mg Tab) metformin (metformin 500 mg Tab) metoprolol (metoprolol succinate 25 mg ER Tab) omeprazole (omeprazole 40 mg Cap-DR) phentermine (phentermine 37.5 mg Tab) venlafaxine (venlafaxine 150 mg Cap-ER) Procedures Performed Tonsillectomy and adenoidectomy. Discharge Vitals Temperature (Temporal Artery) 36.6 ?C Heart Rate (Peripheral) 82 Respiratory Rate 16 Blood Pressure 146/94 Height 180.3 cm Height 71 in Weight 172.3 kg Weight 379.06 lb BMI 53 What to do next Scheduled Follow-Up Appointments Thursday 2:20 PM EDT With: Zarina ZULETA, Katherine Justice Where: [facility] Normal [address] [id number] \.br\ Medications\.br\ What How Much When Why Instructions\.br\ Unchanged dapagliflozin (Farxiga 10 mg oral tablet) 1 Tablets By Mouth Every day\.br\ Unchanged levothyroxine (levothyroxine 125 mcg (0.125 mg) Tab) See instructions TAKE 1 TABLET BY MOUTH EVERY DAY \.br\ Unchanged losartan (losartan 50 mg Tab) See instructions TAKE 1 TABLET BY MOUTH EVERY DAY \.br\ Unchanged metformin (metformin 500 mg Tab) See instructions TAKE 1 TABLET BY MOUTH TWICE A DAY \.br\ Unchanged metoprolol (metoprolol succinate 25 mg ER Tab) 1 Tablets By Mouth Every day\.br\ Unchanged Misc Prescription (Knee Brace) See instructions Knee pain L knee brace for knee pain \.br\ Unchanged omeprazole (omeprazole 40 mg Cap-DR) See instructions TAKE 1 CAPSULE BY MOUTH TWICE A DAY \.br\ Unchanged phentermine (phentermine 37.5 mg Tab) 1 Tablets By Mouth Every day\.br\ Unchanged venlafaxine (venlafaxine 150 mg Cap-ER) 1 Capsules By Mouth Every day\.br\ Allergies\.br\ penicillin (Unknown)\.br\ Problems\.br\ Ongoing - Any problem that you are currently receiving treatment for.\.br\ Achilles tendonitis\.br\ Adjustment disorder with depressed mood in remission\.br\ Anal skin tag\.br\ BMI 50.0-59.9, adult\.br\ Carpal tunnel syndrome\.br\ Excessive dietary caloric intake\.br\ Family hx of colon cancer\.br\ Gastroesophageal reflux disease without esophagitis\.br\ Hemorrhoids\.br\ Hypothyroidism\.b r\ Ingrown hair\.br\ Insomnia\.br\ Metabolic syndrome\.br\ Migraines\.br\ Morbid obesity\.br\ WATTERS (nonalcoholic steatohepatitis)\ .br\ Obstructive sleep apnea\.br\ Primary hypertension\.br\ Spondylosis of [...] for choosing us for your care.\.br\ \.br\ [facility] Medicine Office/Clini c Noteon 09-08-2023 Family Medicine Office/Clinic Note Family Medicine Office/Clinic Note HPI Staff Carline is a 33 year old female presenting for 6 week follow up weight Weight management Sleeping well: no sleeps 3-4 hrs a night Chest pain:No Tremors:No Headaches:No Heart fluttering:Yes Blurred Vision:No Starting Weight: 459.03 ;bs Weight last visit: 385 lbs Weight this visit: 379 lbs questions/concerns: hasn't been able to get the 10mg farxiga, using the 5mg but almost out of those, only doubled it for one week gave you UTI symptoms so back down to 5mg History of Present Illness - See staff HPI. Review of Systems PHQ Score Initial Depression Screen Score: 2 SCORE Physical Exam Vitals & Measurements T: 36.6 ?C(Temporal Artery) HR: 82(Peripheral) RR: 16 BP: 146/94 SpO2: 99% HT: 71 in HT: 180.3 cm WT: 172.3 kg WT: 379.06 lb BMI: 53 Assessment/Plan 1. Excessive dietary caloric intake (R63.2: Polyphagia) - Continue on adipex. - Pt was given a sample diet to work on. - Follow up in 1 month - Goal is 8 pounds 2. BMI 50.0-59.9, adult (Z68.43: Body mass index [BMI] 50.0-59.9, adult) - BMI ed given 3. Class 3 severe obesity due to excess calories with body mass index (BMI) of 50.0 to 59.9 in adult (E66.01: Morbid (severe) obesity due to excess calories) - Diet and exercise advised 4. Vaping-related disorder (U07.0: Vaping-related disorder) - Please stop vaping 5. Depression (F32.A: Depression, unspecified) - Pt is struggling with feeling lonely and the need to find someone. - Pt would like to do counseling instead of meds - Referral given to the patient. Orders: phentermine, 37.5 mg = 1 tab(s), Oral, Daily, # 30 tab(s), Refills(s) 0, Pharmacy: [facility]/pharmacy #[id number], 180.3, cm, 09/08/23 15:35:00 EDT, Height/Length Dosing, 172.3, kg, 09/08/23 15:35:00 EDT, Weight Dosing Follow-up No qualifying data available Patient Education BMI for Adults Problem List/Past Medical History Ongoing Achilles tendonitis Adjustment disorder with depressed mood in remission Anal skin tag BMI 50.0-59.9, adult Carpal tunnel syndrome Excessive dietary caloric intake Family hx of colon cancer Gastroesophageal reflux disease without esophagitis Hemorrhoids Hypothyroidism Ingrown hair Insomnia Metabolic syndrome Migraines Morbid obesity WATTERS (nonalcoholic steatohepatitis) Obstructive sleep apnea Primary hypertension Spondylosis of lumbar spine Tinea versicolor Type 2 diabetes mellitus without complication, without long-term current use of insulin Umbilical hernia Historical No qualifying data Procedure/Surgical History Tonsillectomy and adenoidectomy. Medications Farxiga 10 mg oral tablet, 10 mg= 1 tab(s), Oral, Daily, 1 refills Knee Brace, See Instructions levothyroxine 125 mcg (0.125 mg) Tab, See Instructions losartan 50 mg Tab, See Instructions metformin 500 mg Tab, See Instructions metoprolol succinate 25 mg ER Tab, 25 mg= 1 tab(s), Oral, Daily omeprazole 40 mg Cap-DR, See Instructions phentermine 37.5 mg Tab, 37.5 mg= 1 tab(s), Oral, Daily venlafaxine 150 mg Cap-ER, 150 mg= 1 cap(s), Oral, Daily, 3 refills Allergies penicillin (Unknown) Social History Alcohol - Denies Alcohol Use, 12/26/2022 Substance Abuse - Denies Substance Abuse, 12/26/2022 Tobacco Never (less than 100 in lifetime) Tobacco Use:. Current vaping or e-cigarette use Smokeless Tobacco Use:. Vaping, Started age 25.0 Years. Yes, 09/08/2023 Family History Asthma: Mother. Diabetes mellitus type 1: Mother. Hypertension: Mother. Primary malignant neoplasm of colon: Father. Immunizations Vaccine Date Status Comments influenza virus vaccine, inactivated - Not Given Patient Refuses influenza virus vaccine, inactivated - Not Given Postpone due to refusal SARSCoV2 mRNA(ozcmtnret-ywzs-aws ros) vac 05/08/2021 Recorded SARSCoV2 mRNA(ygxburbxd-gewv-ctv ros) vac 04/15/2021 Recorded hepatitis B pediatric vaccine 02/22/2008 Recorded Hep A, unspecified formulation 02/22/2008 Recorded hepatitis B pediatric vaccine 09/21/2007 Recorded diphtheria/pertussis, acel/tetanus adult 08/19/2007 Recorded hepatitis B pediatric vaccine 08/19/2007 Recorded Hep A, unspecified formulation 08/19/2007 Recorded measles/mumps/rubella virus vaccine 07/13/2001 Recorded DTaP, unspecified formulation 03/13/1995 Recorded measles/mumps/rubella virus vaccine 07/16/1992 Recorded Hib, unspecified formulation 07/16/1992 Recorded Hib, unspecified formulation 09/27/1990 Recorded Normal [facility] Comment on above: Result Comment: Elec tronically Signed By: Immanuel ZULETA, Thiago Tirado\.br\Date and Time Signed: 09/08/23 16:23 EDT Physician Referralon 024 Physician Referral [id number] IFF Normal [facility] Physician Referral [id number] IFF Normal [facility] Ambulatory Visit Summaryon 0 07-21-2023 Ambulatory Visit Summary CARLINE EMERSON :1990 Visit Date:07/21/2023 Ambulatory Visit Instructions Your Diagnosis Excessive dietary caloric intake Family hx of colon cancer Hypothyroidism BMI 50.0-59.9, adult, Body mass index [BMI] 50.0-59.9, adult Class 3 severe obesity due to excess calories with body mass index (BMI) of 50.0 to 59.9 in adult Vaping-related disorder Your Care Team Attending Physician - Thiago Gambino MD Primary Care Physician - Thiago Gambino MD This Is Your Medications List [facility] Prescription (Knee Brace) dapagliflozin (Farxiga 10 mg oral tablet) levothyroxine (levothyroxine 100 mcg (0.1 mg) Tab) losartan (losartan 50 mg Tab) metformin (metformin 500 mg Tab) metoprolol (metoprolol 25 mg ER Tab) omeprazole (omeprazole 40 mg Cap-DR) phentermine (phentermine 37.5 mg Tab) trazodone (traZODONE 50 mg Tab) venlafaxine (venlafaxine 150 mg Cap-ER) Procedures Performed Tonsillectomy and adenoidectomy. Discharge Vitals Temperature (Temporal Artery) 36.3 ?C Heart Rate (Peripheral) 80 Respiratory Rate 18 Blood Pressure 138/84 Height 180.3 cm Height 71 in Weight 175.0 kg Weight 385 lb BMI 53.83 What to do next Scheduled Follow-Up Appointments Thursday 3:30 PM EDT With: Immanuel ZULETA, Thiago Tirado Where: [facility] [place] Normal [facility] Family Medicine Office/Clini c Noteon 07-21-2023 Family Medicine Office/Clinic Note HPI Staff Carline is a 32 year old female presenting for one month follow up weight Weight management Sleeping well:no but not medicine related Chest pain:No Tremors:No Headaches:No Heart fluttering:Yes Blurred Vision:No Starting Weight: 459.03 lbs Weight last visit: 383 lbs Weight this visit: 385 ( just back from vacation was down to 370 before vacation and times for menses to start) questions/concerns: she's checking about a screening colonoscopy since father dec'd from colon cancer Needs the adipex refilled ( has 5 left) History of Present Illness - Pt is working on weight loss. - Struggling with relationship with food. Review of Systems PHQ Score Initial Depression Screen Score: 2 SCORE Physical Exam Vitals & Measurements T: 36.3 ?C(Temporal Artery) HR: 80(Peripheral) RR: 18 BP: 138/84 SpO2: 97% HT: 71 in HT: 180.3 cm WT: 175.0 kg WT: 385 lb BMI: 53.83 General: alert, no acute distress ENMT: oral mucosa moist, Cardiovascular: regular rate and rhythm, normal peripheral perfusion Respiratory: Lungs CTA, respirations non labored Extremities: no deformity, no trauma Neurological: oriented x 4, LOC appropriate for age, CN II-XII intact, motor strength equal & normal bilaterally, speech normal Abdomen: Soft, Nontender, Non-distended, + BS Assessment/Plan 1. Excessive dietary caloric intake (R63.2: Polyphagia) - Will send to discuss bariatric surgery. - Will send to counseling to help with the patients relationship with food. - Follow up in 1 month - Continue on Adipex-P Ordered: [facility] External Ambulatory Referral [facility] External Ambulatory Referral 2. Family hx of colon cancer (Z80.0: Family history of malignant neoplasm of digestive organs) - Will send to Gi for colonoscopy - Father was diagnosed with colon cancer at 40. Ordered: [facility] External Ambulatory Referral [facility] External Ambulatory Referral 3. Hypothyroidism (E03.9: Hypothyroidism, unspecified) - Will increase levothyroxine based on symptoms - Will recheck meds at next visit Ordered: [facility] External Ambulatory Referral [facility] External Ambulatory Referral 4. BMI 50.0-59.9, adult, (Z68.43: Body mass index [BMI] 50.0-59.9, adult)Body mass index [BMI] 50.0-59.9, adult - BMI education added to the portal Ordered: [facility] External Ambulatory Referral [facility] External Ambulatory Referral 5. Class 3 severe obesity due to excess calories with body mass index (BMI) of 50.0 to 59.9 in adult (E66.01: Morbid (severe) obesity due to excess calories) - Diet and exercise discussed in detail. Ordered: [facility] External Ambulatory Referral [facility] External Ambulatory Referral 6. Vaping-related disorder (U07.0: Vaping-related disorder) - Please stop vaping. Orders: levothyroxine, 125 mcg = 1 tab(s), Oral, Daily, # 90 tab(s), Refills(s) 0, Pharmacy: [facility] #[id number], 180.3, cm, 07/21/23 15:39:00 EDT, Height/Length Dosing, 175, kg, 07/21/23 15:39:00 EDT, Weight Dosing phentermine, 37.5 mg = 1 tab(s), Oral, Daily, # 30 tab(s), Refills(s) 0, Pharmacy: [facility] #[id number], 180.3, cm, 07/21/23 15:39:00 EDT, Height/Length Dosing, 175, kg, 07/21/23 15:39:00 EDT, Weight Dosing Follow-up No qualifying data available Patient Education BMI for Adults Problem List/Past Medical History Ongoing Achilles tendonitis Adjustment disorder with depressed mood in remission Anal skin tag BMI 50.0-59.9, adult Carpal tunnel syndrome Excessive dietary caloric intake Family hx of colon cancer Gastroesophageal reflux disease without esophagitis Hemorrhoids Hypothyroidism Ingrown hair Insomnia Metabolic syndrome Migraines Morbid obesity WATTERS (nonalcoholic steatohepatitis) Obstructive sleep apnea Primary hypertension Spondylosis of lumbar spine Tinea versicolor Type 2 diabetes mellitus without complication, without long-term current use of insulin Umbilical hernia Historical No qualifying data Procedure/Surgical History Tonsillectomy and adenoidectomy. Medications Farxiga 10 mg oral tablet, 10 mg= 1 tab(s), Oral, Daily, 1 refills Knee Brace, See Instructions levothyroxine 125 mcg (0.125 mg) Tab, 125 mcg= 1 tab(s), Oral, Daily losartan 50 mg Tab, See Instructions metformin 500 mg Tab, See Instructions metoprolol 25 mg ER Tab, 25 mg= 1 tab(s), Oral, Daily, 1 refills omeprazole 40 mg Cap-DR, See Instructions phentermine 37.5 mg Tab, 37.5 mg= 1 tab(s), Oral, Daily venlafaxine 150 mg Cap-ER, 150 mg= 1 cap(s), Oral, Daily, 3 refills Allergies penicillin (Unknown) Social History Alcohol - Denies Alcohol Use, 12/26/2022 Substance Abuse - Denies Substance Abuse, 12/26/2022 Tobacco Never (less than 100 in lifetime) Tobacco Use:. Current vaping or e-cigarette use Smokeless Tobacco Use:. Vaping, Started age 25.0 Years. Yes, 07/21/2023 Family History Asthma: Mother. Diabetes mellitus type 1: Mother. Hypertension: Mother. Primary malignant neoplasm of colon: Father. Immunizations Vaccine D (more content not included)... Normal [facility] Comment on above: Result Comment: Elec tronically Signed By: Immanuel ZULETA, Thiago Tirado\.br\Date and Time Signed: 07/21/23 16:07 EDT Patient Educationon 07-21-19 Patient Education Nutrition BMI for Adults What is BMI? Body mass index (BMI) is a number that is calculated from a person's weight and height. BMI can help estimate how much of a person's weight is composed of fat. BMI does not measure body fat directly. Rather, it is an alternative to procedures that directly measure body fat, which can be difficult and expensive. BMI can help identify people who may be at higher risk for certain medical problems. What are BMI measurements used for? BMI is used as a screening tool to identify possible weight problems. It helps determine whether a person is obese, overweight, a healthy weight, or underweight. BMI is useful for: ? Identifying a weight problem that may be related to a medical condition or may increase the risk for medical problems. ? Promoting changes, such as changes in diet and exercise, to help reach a healthy weight. BMI screening can be repeated to see if these changes are working. How is BMI calculated? BMI involves measuring your weight in relation to your height. Both height and weight are measured, and the BMI is calculated from those numbers. This can be done either in [place] ([place] or metric measurements. Note that charts and online BMI calculators are available to help you find your BMI quickly and easily without having to do these calculations yourself. To calculate your BMI in [place] ([place] measurements: 1. Measure your weight in pounds (lb). 2. Multiply the number of pounds by 703. ? For example, for a person who weighs 180 lb, multiply that number by 703, which equals 126,540. 3. Measure your height in inches. Then multiply that number by itself to get a measurement called inches squared. ? For example, for a person who is 70 inches tall, the inches squared measurement is 70 inches x 70 inches, which equals 4,900 inches squared. 4. Divide the total from step 2 (number of lb x 703) by the total from step 3 (inches squared): 126,540 ? 4,900 = 25.8. This is your BMI. To calculate your BMI in metric measurements: 1. Measure your weight in kilograms (kg). 2. Measure your height in meters (m). Then multiply that number by itself to get a measurement called meters squared. ? For example, for a person who is 1.75 m tall, the meters squared measurement is 1.75 m x 1.75 m, which is equal to 3.1 meters squared. 3. Divide the number of kilograms (your weight) by the meters squared number. In this example: 70 ? 3.1 = 22.6. This is your BMI. What do the results mean? BMI charts are used to identify whether you are underweight, normal weight, overweight, or obese. The following guidelines will be used: ? Underweight: BMI less than 18.5. ? Normal weight: BMI between 18.5 and 24.9. ? Overweight: BMI between 25 and 29.9. ? Obese: BMI of 30 or above. Keep these notes in mind: ? Weight includes both fat and muscle, so someone with a muscular build, such as an athlete, may have a BMI that is higher than 24.9. In cases like these, BMI is not an accurate measure of body fat. ? To determine if excess body fat is the cause of a BMI of 25 or higher, further assessments may need to be done by a health care provider. ? BMI is usually interpreted in the same way for men and women. Where to find more information For more information about BMI, including tools to quickly calculate your BMI, go to these websites: ? Centers for Disease Control and Prevention: www.cdc.gov ? [place] Heart Association: www.heart.org ? National Heart, Lung, and Blood [place]: www.nhlbi.nih.gov Summary ? Body mass index (BMI) is a number that is calculated from a person's weight and height. ? BMI may help estimate how much of a person's weight is composed of fat. BMI can help identify those who may be at higher risk for certain medical problems. ? BMI can be measured using Ivorian measurements or metric measurements. ? BMI charts are used to identify whether you are underweight, normal weight, overweight, or obese. This information is not intended to replace advice given to you by your health care provider. Make sure you discuss any questions you have with your health care provider. Document Revised: 11/02/2019 Document Reviewed: 09/09/2019 [employer] Patient Education ? 2022 [employer] [facility] Ambulatory Visit Summaryon 0 06-15-2023 Ambulatory Visit Summary CARLINE EMERSON :1990 Visit Date:06/15/2023 Ambulatory Visit Instructions Your Diagnosis Excessive dietary caloric intake Type 2 diabetes mellitus without complication, without long-term current use of insulin BMI 50.0-59.9, adult Class 3 severe obesity due to excess calories with body mass index (BMI) of 50.0 to 59.9 in adult Vaping-related disorder Primary hypertension Your Care Team Attending Physician - Thiago Gambino MD Primary Care Physician - Thiago Gambino MD This Is Your Medications List dapagliflozin (Farxiga 10 mg oral tablet) phentermine (phentermine 37.5 mg Tab) Contact prescribing physician if questions or concerns Misc Prescription (Knee Brace) levothyroxine (levothyroxine 100 mcg (0.1 mg) Tab) losartan (losartan 50 mg Tab) metformin (metformin 500 mg Tab) metoprolol (metoprolol 25 mg ER Tab) omeprazole (omeprazole 40 mg Cap-DR) trazodone (traZODONE 50 mg Tab) venlafaxine (venlafaxine 150 mg Cap-ER) [Image Removed: STOP]Stop taking these medications busPIRone (busPIRone 5 mg Tab) Procedures Performed Tonsillectomy and adenoidectomy. Discharge Vitals Temperature (Temporal Artery) 36.8 ?C Heart Rate (Peripheral) 100 Respiratory Rate 16 Blood Pressure 136/82 Height 180.3 cm Height 71 in Weight 174.2 kg Weight 383.24 lb BMI 53.59 What to do next Scheduled Follow-Up Appointments Thursday 3:30 PM EDT With: Thiago Gambino MD Where: [facility] [place] Normal [facility] Family Medicine Office/Clini c Noteon 06-15-2023 Family Medicine Office/Clinic Note HPI Staff Carline is a 32 year old female presenting for 3 month follow up weight Weight management Sleeping well:no but it's not a medical issue she just stays up Chest pain:No Tremors:No Headaches:No Heart fluttering:No Blurred Vision:No Weight last visit: 381.04lbs Weight this visit: 383lbs questions/concerns: at a stand still with the weight and what's next and having trouble moving her bowels, taking stool softeners daily If you order adipex prefers tablets not the capsules History of Present Illness - Discussed weight. Review of Systems PHQ Score Initial Depression Screen Score: 0 SCORE Physical Exam Vitals & Measurements T: 36.8 ?C(Temporal Artery) HR: 100(Peripheral) RR: 16 BP: 136/82 SpO2: 96% HT: 71 in HT: 180.3 cm WT: 174.2 kg WT: 383.24 lb BMI: 53.59 General: alert, no acute distress ENMT: oral mucosa moist, Cardiovascular: regular rate and rhythm, normal peripheral perfusion Respiratory: Lungs CTA, respirations non labored Extremities: no deformity, no trauma Neurological: oriented x 4, LOC appropriate for age, CN II-XII intact, motor strength equal & normal bilaterally, speech normal Abdomen: Soft, Nontender, Non-distended, + BS Assessment/Plan 1. Excessive dietary caloric intake (R63.2: Polyphagia) - Increase hydration. - Will keep with Adipex. - Follow up in 1 month 2. Type 2 diabetes mellitus without complication, without long-term current use of insulin (E11.9: Type 2 diabetes mellitus without complications) - Increased Fargixa - Follow up in 1 month 3. BMI 50.0-59.9, adult (Z68.43: Body mass index [BMI] 50.0-59.9, adult) - BMI education uploaded 4. Class 3 severe obesity due to excess calories with body mass index (BMI) of 50.0 to 59.9 in adult (E66.01: Morbid (severe) obesity due to excess calories) - Diet and exercise advised 5. Vaping-related disorder (U07.0: Vaping-related disorder) - Please stop using Nicotine 6. Primary hypertension (I10: Essential (primary) hypertension) - At goal. - Continue as before. Orders: dapagliflozin, 10 mg = 1 tab(s), Oral, Daily, # 90 tab(s), Refills(s) 1, Pharmacy: [facility] #[id number], 180.3, cm, 06/15/23 16:35:00 EDT, Height/Length Dosing, 174.2, kg, 06/15/23 16:35:00 EDT, Weight Dosing phentermine, 37.5 mg = 1 tab(s), Oral, Daily, # 30 tab(s), Refills(s) 0, Pharmacy: [facility] #[id number], 180.3, cm, 06/15/23 16:35:00 EDT, Height/Length Dosing, 174.2, kg, 06/15/23 16:35:00 EDT, Weight Dosing - Discussed option for weight loss. - Pt wants to continue diet and exercise. Follow-up No qualifying data available Problem List/Past Medical History Ongoing Achilles tendonitis Adjustment disorder with depressed mood in remission Anal skin tag BMI 50.0-59.9, adult Carpal tunnel syndrome Excessive dietary caloric intake Gastroesophageal reflux disease without esophagitis Hemorrhoids Hypothyroidism Ingrown hair Insomnia Metabolic syndrome Migraines Morbid obesity WATTERS (nonalcoholic steatohepatitis) Obstructive sleep apnea Primary hypertension Spondylosis of lumbar spine Tinea versicolor Type 2 diabetes mellitus without complication, without long-term current use of insulin Umbilical hernia Historical No qualifying data Procedure/Surgical History Tonsillectomy and adenoidectomy. Medications Farxiga 10 mg oral tablet, 10 mg= 1 tab(s), Oral, Daily, 1 refills Knee Brace, See Instructions levothyroxine 100 mcg (0.1 mg) Tab, See Instructions losartan 50 mg Tab, See Instructions metformin 500 mg Tab, See Instructions metoprolol 25 mg ER Tab, 25 mg= 1 tab(s), Oral, Daily, 1 refills omeprazole 40 mg Cap-DR, See Instructions phentermine 37.5 mg Tab, 37.5 mg= 1 tab(s), Oral, Daily traZODONE 50 mg Tab, See Instructions, Not taking venlafaxine 150 mg Cap-ER, 150 mg= 1 cap(s), Oral, Daily, 1 refills Allergies penicillin (Unknown) Social History Alcohol - Denies Alcohol Use, 12/26/2022 Substance Abuse - Denies Substance Abuse, 12/26/2022 Tobacco Never (less than 100 in lifetime) Tobacco Use:. Current vaping or e-cigarette use Smokeless Tobacco Use:. Vaping, Started age 25.0 Years. Yes, 06/15/2023 Family History Asthma: Mother. Diabetes mellitus type 1: Mother. Hypertension: Mother. Primary malignant neoplasm of colon: Father. Immunizations Vaccine Date Status Comments influenza virus vaccine, inactivated - Not Given Patient Refuses influenza virus vaccine, inactivated - Not Given Postpone due to refusal SARSCoV2 mRNA(cdtnamozd-fhqb-mcr ros) vac 05/08/2021 Recorded SARSCoV2 mRNA(xyjdzghtt-wkyr-jih ros) vac 04/15/2021 Recorded hepatitis B pediatric vaccine 02/22/2008 Recorded Hep A, unspecified formulation 02/22/2008 Recorded hepatitis B pediatric vaccine 09/21/2007 Recorded diphtheria/pertussis, acel/tetanus adult 08/19/2007 Recorded hepatitis B pediatric vaccine 08/19/2007 Recorded Hep A, unspecified formulation 08/19/2007 Recorded measles/mumps/rubella virus vaccin (more content not included)... [facility] Comment on above: Result Comment: Elec tronically Signed By: Immanuel ZULETA, Thiago Tirado\.br\Date and Time Signed: 06/15/23 16:59 EDT Ambulatory Visit Summaryon 0 03-16-2023 Ambulatory Visit Summary CARLINE EMERSON :1990 Visit Date:03/16/2023 Ambulatory Visit Instructions Your Diagnosis Excessive dietary caloric intake BMI 50.0-59.9, adult Class 3 obesity Vaping-related disorder Your Care Team Attending Physician - Thiago Gambino MD Primary Care Physician - Thiago Gambino MD This Is Your Medications List [facility] Prescription (Knee Brace) busPIRone (busPIRone 5 mg Tab) dapagliflozin (Farxiga 5 mg oral tablet) levothyroxine (levothyroxine 100 mcg (0.1 mg) Tab) losartan (losartan 50 mg Tab) metformin (metformin 500 mg Tab) metoprolol (metoprolol 25 mg ER Tab) omeprazole (omeprazole 40 mg Cap-DR) phentermine (Adipex-P 37.5 mg oral capsule) trazodone (traZODONE 50 mg Tab) venlafaxine (venlafaxine 150 mg Cap-ER) Procedures Performed Tonsillectomy and adenoidectomy. Discharge Vitals Temperature (Temporal Artery) 36.6 ?C Heart Rate (Peripheral) 70 Respiratory Rate 16 Blood Pressure 134/82 Height 180.3 cm Height 71 in Weight 173.2 kg Weight 381.04 lb BMI 53.28 What to do next Scheduled Follow-Up Appointments Thursday 4:30 PM EDT With: Thiago Gambino MD Where: [facility] [place] [facility] Family Medicine Office/Clini c Noteon 03-16-2023 Family Medicine Office/Clinic Note HPI Staff Carline is a 32 year old female presenting for 3 month follow up weight Weight management Sleeping well: no sleeps 4-5 hours a night Chest pain:No Tremors:No Headaches:No Heart fluttering:No Blurred Vision:No Weight last visit: 183.34kg/403.38lbs Weight this visit: 173.2kg/381.04lbs flu: refused questions/concerns: lump under her left armpit she'd like checked doesn't need the adipex yet but it is out of refills uses [facility] for the adipex History of Present Illness Here for follow up. - No issues at this time. - Doing well Review of Systems PHQ Score Initial Depression Screen Score: 0 SCORE Physical Exam Vitals & Measurements T: 36.6 ?C(Temporal Artery) HR: 70(Peripheral) RR: 16 BP: 134/82 SpO2: 100% HT: 71 in HT: 180.3 cm WT: 173.2 kg WT: 381.04 lb BMI: 53.28 General: alert, no acute distress ENMT: oral mucosa moist, Cardiovascular: regular rate and rhythm, normal peripheral perfusion Respiratory: Lungs CTA, respirations non labored Extremities: no deformity, no trauma, Ingrown hair shown in the L axilla. Neurological: oriented x 4, LOC appropriate for age, CN II-XII intact, motor strength equal & normal bilaterally, speech normal Abdomen: Soft, Nontender, Non-distended, + BS Assessment/Plan 1. Excessive dietary caloric intake (R63.2: Polyphagia) - Continue on adipex - Diet and exercise advised - Discussed switching up the diet - Follow up in 3 months. 2. BMI 50.0-59.9, adult (Z68.43: Body mass index [BMI] 50.0-59.9, adult) - BMI education given 3. Class 3 obesity (E66.01: Morbid (severe) obesity due to excess calories) - Diet and exercise 4. Vaping-related disorder (U07.0: Vaping-related disorder) - Please stop vaping 5. 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 Orders: dapagliflozin, See Instructions, TAKE 1 TABLET BY MOUTH EVERY DAY, # 90 tab(s), Refills(s) 1, Pharmacy: [facility]/pharmacy #[id number], 180.3, cm, 08/21/22 15:16:00 EDT, Height/Length Dosing, 208.7, kg, 06/23/22 16:07:00 EDT, Weight Dosing dapagliflozin, See Instructions, TAKE 1 TABLET BY MOUTH EVERY DAY, # 90 tab(s), Refills(s) 1, Pharmacy: [id number], 180.3, cm, 12/26/22 14:31:00 EDT, Height/Length Dosing, 184, kg, 12/26/22 14:31:00 EDT, Weight Dosing losartan, 50 mg = 1 tab(s), Oral, Daily, # 90 tab(s), Refills(s) 1, Pharmacy: [facility]/pharmacy #[id number], 180.3, cm, 08/21/22 15:16:00 EDT, Height/Length Dosing, 208.7, kg, 06/23/22 16:07:00 EDT, Weight Dosing losartan, See Instructions, TAKE 1 TABLET BY MOUTH EVERY DAY, # 90 tab(s), Refills(s) 1, Pharmacy: [id number], 180.3, cm, 12/26/22 14:31:00 EDT, Height/Length Dosing, 184, kg, 12/26/22 14:31:00 EDT, Weight Dosing phentermine, 37.5 mg = 1 cap(s), Oral, Daily, # 30 cap(s), Refills(s) 2, Pharmacy: [facility] #[id number], 180.3, cm, 03/16/23 16:21:00 EST, Height/Length Dosing, 173.2, kg, 03/16/23 16:21:00 EST, Weight Dosing Follow-up No qualifying data available Patient Education BMI for Adults Problem List/Past Medical History Ongoing Achilles tendonitis Adjustment disorder with depressed mood in remission Anal skin tag BMI 50.0-59.9, adult Carpal tunnel syndrome Excessive dietary caloric intake Gastroesophageal reflux disease without esophagitis Hemorrhoids Hypothyroidism Ingrown hair Insomnia Metabolic syndrome Migraines Morbid obesity WATTERS [...] Instructions Farxiga 5 mg oral tablet, See Instructions Knee Brace, See Instructions levothyroxine 100 mcg (0.1 mg) Tab, See Instructions losartan 50 mg Tab, See Instructions metformin 500 mg Tab, See Instructions metoprolol 25 mg ER Tab, 25 mg= 1 tab(s), Oral, Daily, 1 refills omeprazole 40 mg Cap-DR, See Instructions traZODONE 50 mg Tab, See Instructions venlafaxine 150 mg Cap-ER, 150 mg= 1 cap(s), Oral, Daily, 1 refills Allergies penicillin (Unknown) Social History Alcohol - Denies Alcohol Use, 12/26/2022 Substance Abuse - Denies Substance Abuse, 12/26/2022 Tobacco Never (less than 100 in lifetime) Tobacco Use:. Current vaping or e-cigarette use Smokeless Tobacco Use:. Vaping, Started age 25.0 Years. Yes, 03/16/2023 Family History Asthma: Mother. Diabetes mellitus type 1: Mother. Hypertension: Mother. Primary malignant neoplasm of colon: Father. Immunizations Vaccine Date Status Comments influenza virus vaccine, inactivated - Not Given Patient Refuses influenza virus vaccine, inactivated - Not Given Postpone due to refusal SARSCoV2 mRNA(fmmjtwysh-dzwq-ngo ros) vac 05/08/2021 Recorded CATIE (more content not included)... Normal [facility] Comment on above: Result Comment: Elec tronically Signed By: Immanuel ZULETA, Thiago Tirado\.br\Date and Time Signed: 03/16/23 17:01 EST Patient Educationon 03-16-19 24 Patient Education Nutrition BMI for Adults What is BMI? Body mass index (BMI) is a number that is calculated from a person's weight and height. BMI can help estimate how much of a person's weight is composed of fat. BMI does not measure body fat directly. Rather, it is an alternative to procedures that directly measure body fat, which can be difficult and expensive. BMI can help identify people who may be at higher risk for certain medical problems. What are BMI measurements used for? BMI is used as a screening tool to identify possible weight problems. It helps determine whether a person is obese, overweight, a healthy weight, or underweight. BMI is useful for: ? Identifying a weight problem that may be related to a medical condition or may increase the risk for medical problems. ? Promoting changes, such as changes in diet and exercise, to help reach a healthy weight. BMI screening can be repeated to see if these changes are working. How is BMI calculated? BMI involves measuring your weight in relation to your height. Both height and weight are measured, and the BMI is calculated from those numbers. This can be done either in [place]vorian ([place] or metric measurements. Note that charts and online BMI calculators are available to help you find your BMI quickly and easily without having to do these calculations yourself. To calculate your BMI in [place]vorian ([place] measurements: 1. Measure your weight in pounds (lb). 2. Multiply the number of pounds by 703. ? For example, for a person who weighs 180 lb, multiply that number by 703, which equals 126,540. 3. Measure your height in inches. Then multiply that number by itself to get a measurement called inches squared. ? For example, for a person who is 70 inches tall, the inches squared measurement is 70 inches x 70 inches, which equals 4,900 inches squared. 4. Divide the total from step 2 (number of lb x 703) by the total from step 3 (inches squared): 126,540 ? 4,900 = 25.8. This is your BMI. To calculate your BMI in metric measurements: 1. Measure your weight in kilograms (kg). 2. Measure your height in meters (m). Then multiply that number by itself to get a measurement called meters squared. ? For example, for a person who is 1.75 m tall, the meters squared measurement is 1.75 m x 1.75 m, which is equal to 3.1 meters squared. 3. Divide the number of kilograms (your weight) by the meters squared number. In this example: 70 ? 3.1 = 22.6. This is your BMI. What do the results mean? BMI charts are used to identify whether you are underweight, normal weight, overweight, or obese. The following guidelines will be used: ? Underweight: BMI less than 18.5. ? Normal weight: BMI between 18.5 and 24.9. ? Overweight: BMI between 25 and 29.9. ? Obese: BMI of 30 or above. Keep these notes in mind: ? Weight includes both fat and muscle, so someone with a muscular build, such as an athlete, may have a BMI that is higher than 24.9. In cases like these, BMI is not an accurate measure of body fat. ? To determine if excess body fat is the cause of a BMI of 25 or higher, further assessments may need to be done by a health care provider. ? BMI is usually interpreted in the same way for men and women. Where to find more information For more information about BMI, including tools to quickly calculate your BMI, go to these websites: ? Centers for Disease Control and Prevention: www.cdc.gov ? [place] Heart Association: www.heart.org ? National Heart, Lung, and Blood [place]: www.nhlbi.nih.gov Summary ? Body mass index (BMI) is a number that is calculated from a person's weight and height. ? BMI may help estimate how much of a person's weight is composed of fat. BMI can help identify those who may be at higher risk for certain medical problems. ? BMI can be measured using Ivorian measurements or metric measurements. ? BMI charts are used to identify whether you are underweight, normal weight, overweight, or obese. This information is not intended to replace advice given to you by your health care provider. Make sure you discuss any questions you have with your health care provider. Document Revised: 11/02/2019 Document Reviewed: 09/09/2019 [employer] Patient Education ? 2022 [employer] [facility] ED Note-Physicianon 03-13-19 24 ED Note-Physician [id number]#1.00T IFF [facility] RAD - MISCon 03-09-2023 RAD - MISC [id number]#1.00TI FF [facility] Pathology Noteon 01-29-2023 Pathology Note [id number]#1.00T IFF [facility] Operative Reporton Operative Report [id number]#1.00T IFF Normal [facility] Insurance Correspondenceon 1 03-02-2022 Insurance Correspondence [id number]#1.00T IFF Normal [facility] Consent for Procedure/Surger yon 12-29-2022 Consent for Procedure/Surgery [id number]#1.00T IFF Normal [facility] Ambulatory Visit Summaryon 1 02-25-2022 Ambulatory Visit Summary CARLINE EMERSON :1990 Visit Date:12/26/2022 Ambulatory Visit Instructions Your Care Team Attending Physician - JAREK ZULETA, Brain Pete Primary Care Physician - Thiago Gambino MD [...] PM EST With: Thiago Gambino MD Where: [facility] Ambulatory Visit Summaryon 02-23-2022 Ambulatory Visit Summary CARLINE EMERSON :1990 Visit Date:12/24/2022 Ambulatory Visit Instructions Your [...] Follow-Up Appointments Thursday 2:20 PM EDT With: JAREK ZULETA, Brain Pete Where: General Surgery [facility] Normal [address] [place] [address]- \.br\ Medications\.br\ What How Much When Why Instructions\.br\ Unchanged phentermine (Adipex-P 37.5 mg oral capsule) 1 Capsules By Mouth Every day Pickup at [facility] #[id number]\.br\ Unchanged busPIRone (busPIRone 5 mg Tab) See [...] or concerns \.br\ Pharmacy Information\.br\ [id number]: [address], [place] [phone] [phone]\.br\ Medications and Immunizations Administered\.br\ Not Given\.br\ influenza virus vaccine, inactivated, Patient Refuses\.br\ Allergies\.br\ penicillin (Unknown)\.br\ Problems\.br\ Ongoing - Any problem that you are currently receiving treatment for.\.br\ Achilles tendonitis\.br\ Adjustment disorder with depressed mood in remission\.br\ Carpal tunnel syndrome\.br\ Excessive dietary caloric intake\.br\ Gastroesophageal reflux disease without esophagitis\.br\ Hemorrhoids\.br\ Hypothyroidism\.b r\ Insomnia\.br\ Metabolic syndrome\.br\ Migraines\.br\ Morbid obesity\.br\ WATTERS (nonalcoholic steatohepatitis)\ .br\ Obstructive sleep apnea\.br\ Primary hypertension\.br\ Spondylosis of [...] for choosing us for your care.\.br\ \.br\ [facility] Ambulatory Visit Summary CARLINE EMERSON :1990 Visit Date:12/24/2022 Ambulatory Visit Instructions Your Diagnosis Hemorrhoids, unspecified hemorrhoid type Excessive dietary caloric intake Umbilical hernia Your Care Team Attending Physician - Thiago Gambino MD Primary Care Physician - Thiago Gambino MD This Is Your Medications List [facility] Prescription (Knee Brace) busPIRone (busPIRone 5 [...] Follow-Up Appointments Thursday 2:20 PM EDT With: JAREK ZULETA, Brain Pete Where: General Surgery [facility] Normal [address] [place] [address]- \.br\ Medications\.br\ What How Much When Why [...] intake\.br\ Gastroesophageal reflux disease without esophagitis\.br\ Hemorrhoids\.br\ Hypothyroidism\.b r\ Insomnia\.br\ Metabolic syndrome\.br\ Migraines\.br\ Morbid obesity\.br\ WATTERS (nonalcoholic steatohepatitis)\ .br\ Obstructive sleep apnea\.br\ Primary hypertension\.br\ Spondylosis of [...] choosing us for your care.\.br\ \.br\ [facility] Family Medicine Office/Clini c [place] 12-24-2022 Family Medicine Office/Clinic Note HPI Staff Carline is a 32 year old female presenting [...] recall specifically when that was flu: refused questions/concerns: there's a message to refill her adipex [...] Daily, # 30 cap(s), Refills(s) 2, Pharmacy: [facility] #[id number], 180.3, cm, 12/24/22 15:26:00 EDT, Height/Length Dosing, [...] Not Given Postpone due to refusal SARSCoV2 mRNA(izguezmcm-ualx-yno ros) vac 05/08/2021 Recorded SARSCoV2 mRNA(qmlsamjpo-lokt-mqz ros) vac 04/15/2021 Recorded hepatitis B pediatric vaccine 02/22/2008 Recorded Hep A, unspecified formulation 02/22/2008 Recorded hepatitis B pediatric vaccine 09/21/2007 Recorded diphtheria/pertussis, acel/tetanus adult 08/19/2007 Recorded hepatitis B pediatric vaccine 08/19/2007 Recorded Hep A, unspecified formulation 08/19/2007 Recorded measles/mumps/rubella virus vaccine 07/13/2001 Recorded DTaP, unspecified formulation 03/13/1995 Recorded measles/mumps/rubella virus vaccine 07/16/1992 Recorded Hib, unspecified formulation 07/16/1992 Recorded Hib, unspecified formulation 09/27/1990 Recorded Normal [facility] Comment on above: Result Comment: Elec tronically Signed By: Thiago Gambino MD\.br\Date and Time Signed: 12/24/22 15:46 EDT Ambulatory Visit Summaryon 1 Ambulatory Visit Summary CARLINE EMERSON :1990 Visit Date:12/04/2022 Ambulatory Visit Instructions Your [...] Follow-Up Appointments Thursday 3:15 PM EST With: Thiago Gambino MD [facility] Normal [facility] Office/Clini c Noteon 12-04-2022 Family [facility] Office/Clinic Note HPI Staff Carline is a 32 year old female presenting for follow up weight Weight management Sleeping well:No, Having problems falling asleep tried trazadone but didn't like it Chest pain:No Tremors:No Headaches:No Heart fluttering:No Blurred Vision:No Weight last visit: 204.5kg/449lbs Weight this visit:188.8kg/415lbs flu: refused questions/concerns: History of Present Illness - Per staff [...] will continue to fill the Adipex. Ordered: [facility] Internal Ambulatory Referral 2. Morbid obesity (E66.01: Morbid (severe) obesity due to excess calories) - Diet and exercise advised Ordered: [facility] Internal Ambulatory Referral 3. BMI 50.0-59.9, adult (Z68.43: Body mass index [BMI] 50.0-59.9, adult) BMI education given. Ordered: [facility] Internal Ambulatory Referral 4. Hemorrhoids (K64.9: Unspecified hemorrhoids) Would like them removed by surgery Ordered: [facility] Internal Ambulatory Referral Orders: phentermine, 37.5 mg = 1 cap(s), Oral, Daily, # 30 cap(s), Refills(s) 2, Pharmacy: [facility] #[id number], 180.3, cm, 12/04/22 16:01:00 EDT, Height/Length Dosing, [...] Not Given Postpone due to refusal SARSCoV2 mRNA(tlouvgcus-civd-gkn ros) vac 05/08/2021 Recorded SARSCoV2 mRNA(ygwtvxscr-qzke-zli ros) vac 04/15/2021 Recorded hepatitis B pediatric vaccine 02/22/2008 Recorded Hep A, unspecified formulation 02/22/2008 Recorded hepatitis B pediatric vaccine 09/21/2007 Recorded diphtheria/pertussis, acel/tetanus adult 08/19/2007 Recorded hepatitis B pediatric vaccine 08/19/2007 Recorded Hep A, unspecified formulation 08/19/2007 Recorded measles/mumps/rubella virus vaccine 07/13/2001 Recorded DTaP, unspecified formulation 03/13/1995 Recorded measles/mumps/rubella virus vaccine 07/16/1992 Recorded Hib, unspecified formulation 07/16/1992 Recorded Hib, unspecified formulation 09/27/1990 Recorded Normal [facility] Comment on above: Result Comment: Elec tronically Signed By: Immanuel ZULETA, Thiago Wayne.br\Date and Time Signed: 12/04/22 16:30 EDT AMYLASEon 06-11-2022 Amylase [Catalytic activity/Vol] 53 U/L Normal 25-115 [facility] Comment on above: Performed By: #### A MY, CMP, LIPA #### [facility] [address] [place] [address] Dr. Luis Enrique De La Cruz CBC AUTO DIFFon 06-11-2022 BASO # 0.1 103/ul Normal 0.0-0.1 [facility] Comment on above: Performed By: #### C BC #### [facility] [address] [place] [address] Dr. Luis Enrique De La Cruz Basophils/100 WBC (Bld) 0.5 % Normal 0.2-2.0 [facility] Comment on above: Performed By: #### C BC #### [facility] [address] [place] [address] Dr. Luis Enrique De La Cruz EO # 0.2 103/ul Normal 0.0-0.7 [facility] Comment on above: Performed By: #### C BC #### [facility] [address] [place] [address] Dr. Luis Enrique De La Cruz Eosinophils/100 WBC (Bld) 2.1 % Normal 0.9-7.0 [facility] Comment on above: Performed By: #### C BC #### [facility] [address] [place] [address] Dr. Luis Enrique De La Cruz Erythrocyte distribution width (RBC) [Ratio] 14.7 % Normal 11.0-15.0 [facility] Comment on above: Performed By: #### C BC #### [facility] [address] [place] [address] Dr. Luis Enrique De La Cruz Hematocrit (Bld) [Volume fraction] 38.7 % Normal 36.0-48.0 [facility] Comment on above: Performed By: #### C BC #### [facility] [address] [place] [address] Dr. Luis Enrique De La Cruz Hemoglobin (Bld) [Mass/Vol] 12.7 g/dL Normal 12.0-16.0 [facility] Comment on above: Performed By: #### C BC #### [facility] [address] [place] [address] Dr. Luis Enrique De La Cruz IG # 0.03 10e3/ul Normal 0.00-0.03 [facility] Comment on above: Performed By: #### C BC #### [facility] [address] [place] [address] Dr. Luis Enrique De La Cruz IG % 0.3 % Normal 0.0-0.5 [facility] Comment on above: Performed By: #### C BC #### [facility] [address] [place] [address] Dr. Luis Enrique De La Cruz LYMPH # 2.8 103/ul Normal 1.2-3.8 [facility] Comment on above: Performed By: #### C BC #### [facility] [address] [place] [address] Dr. Luis Enrique De La Cruz Lymphocytes/100 WBC (Bld) 27.8 % Normal 20.5-60.0 [facility] Comment on above: Performed By: #### C BC #### [facility] [address] [place] [address] Dr. Luis Enrique De La Cruz MANUAL DIFF REQ NO Normal [facility] Comment on above: Performed By: #### C BC #### [facility] [address] [place] [address] Dr. Luis Enrique De La Cruz MCH (RBC) [Entitic mass] 28.2 pg Normal 26.7-34.0 [facility] Comment on above: Performed By: #### C BC #### [facility] [address] [place] [address] Dr. Luis Enrique De La Cruz MCHC (RBC) [Mass/Vol] 32.8 g/dL Normal 29.9-35.2 [facility] Comment on above: Performed By: #### C BC #### [facility] [address] [place] [address] Dr. Luis Enrique De La Cruz MCV (RBC) [Entitic vol] 85.8 fL Normal 81.0-99.0 [facility] Comment on above: Performed By: #### C BC #### [facility] [address] [place] [address] Dr. Luis Enrique De La Cruz MONO # 0.7 103/ul Normal 0.3-0.8 [facility] Comment on above: Performed By: #### C BC #### [facility] [address] [place] [address] Dr. Luis Enrique De La Cruz Monocytes/100 WBC (Bld) 7.2 % Normal 1.7-12.0 [facility] Comment on above: Performed By: #### C BC #### [facility] [address] [place] [address] Dr. Luis Enrique De La Cruz NEUT # 6.2 103/ul Normal 1.4-6.5 [facility] Comment on above: Performed By: #### C BC #### [facility] [address] [place] [address] Dr. Luis Enrique De La Cruz Neutrophils/100 WBC (Bld) 62.1 % Normal 43.0-75.0 [facility] Comment on above: Performed By: #### C BC #### [facility] [address] [place] [address] Dr. Luis Enrique De La Cruz Platelet mean volume (Bld) [Entitic vol] 9.8 fL Normal 9.5-13.5 [facility] Comment on above: Performed By: #### C BC #### [facility] [address] [place] [address] Dr. Luis Enrique De La Cruz PLT 322 103/ul Normal 150-450 [facility] Comment on above: Performed By: #### C BC #### [facility] [address] [place], [place] [address] Dr. Luis Enrique De La Cruz RBC 4.51 106/ul Normal 4.20-5.40 [facility] Comment on above: Performed By: #### C BC #### [facility] [address] [place], [place] [address] Dr. Luis Enrique De La Cruz WBC 9.9 103/ul Normal 4.0-11.0 [facility] Comment on above: Performed By: #### C BC #### [facility] [address] [place], [place] [address] Dr[address] Luis Enrique De La Cruz CT [...] visualized. No diverticulosis. Lymph Nodes: No lymphadenopathy. Mesentery/peritoneum: No ascites. Retroperitoneum: No mass. Vasculature: No abdominal aortic or iliac artery aneurysm. Pelvis: No mass or ascites. Urinary bladder is unremarkable. Bones/Soft Tissues: No acute abnormality. Lower thorax: Unremarkable. IMPRESSION: 1. No acute findings in the abdomen and pelvis. 2. Hepatomegaly, with diffuse hepatic steatosis. Electronically authenticated by: MAYRA OCHOA Date: 2022-06-11 21:16 Normal [facility] ER URINE PROFILEon 3 Bilirubin Ql (U) Negative Normal NEGATIVE [facility] Comment on above: Performed By: #### A MY, CMP, LIPA #### [facility] [address] [place] [address] [address] Luis Enrique De La Cruz Clarity (U) CLEAR Normal CLEAR [facility] Comment on above: Performed By: #### A MY, CMP, LIPA #### [facility] [address] [place] [address] [address] Luis Enrique De La Cruz Color (U) LT. YELLOW Normal YELLOW [facility] Comment on above: Performed By: #### A MY, CMP, LIPA #### [facility] [address] [place] [address] Dr. Luis Enrique REYES A micrscopic examination will be performed if indicated. Normal [facility] Comment on above: Performed By: #### A MY, CMP, LIPA #### [facility] [address] [place] [address] Dr. Luis Enrique De La Cruz Glucose Ql (U) Negative Normal NEGATIVE [facility] Comment on above: Performed By: #### A MY, CMP, LIPA #### [facility] [address] [place] [address] Dr. Luis Enrique De La Cruz Hemoglobin Ql (U) Negative Normal NEGATIVE [facility] Comment on above: Performed By: #### A MY, CMP, LIPA #### [facility] [address] [place] [address] Dr. Luis Enrique De La Cruz Ketones Ql (U) Negative Normal NEGATIVE [facility] Comment on above: Performed By: #### A MY, CMP, LIPA #### [facility] [address] [place] [address] Dr. Luis Enrique De La Cruz LEUKOCYTES SMALL Abnormal NEGATIVE [facility] Comment on above: Performed By: #### A MY, CMP, LIPA #### [facility] [address] [place] [address] Dr. Luis Enrique De La Cruz Nitrite Ql (U) Negative Normal NEGATIVE [facility] Comment on above: Performed By: #### A MY, CMP, LIPA #### [facility] [address] [place] [address] [address] Luis Enrique De La Cruz pH (U) 7.0 [pH] Normal 5-9 [facility] Comment on above: Performed By: #### A MY, CMP, LIPA #### [facility] [address] [place] [address] [address] Luis Enrique De La Cruz SPEC GRAVITY 1.020 Normal 1.005-<=1.025 [facility] Comment on above: Performed By: #### A MY, CMP, LIPA #### [facility] [address] [place] [address] [address] Luis Enrique De La Cruz UA PROTEIN Negative Normal NEGATIVE/ TRACE [facility] Comment on above: Performed By: #### A MY, CMP, LIPA #### [facility] [address] [place] [address] Dr. Luis Enrique De La Cruz UR MICRO IND INDICATED Normal [facility] Comment on above: Performed By: #### A MY, CMP, LIPA #### [facility] [address] [place] [address] Dr. Luis Enrique De La Cruz Urobilinogen Qn (U) 2.0 {Yudy'U}/dL Abnormal 0.2 - 1.0 [facility] Comment on above: Performed By: #### A MY, CMP, LIPA #### [facility] [address] [place] [address] Dr. Luis Enrique De La Cruz LIPASEon 06-11-2022 Lipase [Catalytic activity/Vol] 196.0 U/L Normal 73.0-393.0 [facility] Comment on above: Performed By: #### A MY, CMP, LIPA #### [facility] [address] [place] [address] Dr. Luis Enrique De La Cruz URon 06-11-2022 , QUAL Negative Normal NEGATIVE [facility] Comment on above: Performed By: #### A MY, CMP, LIPA #### [facility] [address] [place] [address] Dr. Luis Enrique De La Cruz PROF 14(COMP METB)on 023 Albumin [Mass/Vol] 3.5 g/dL Normal 3.4-5.0 [facility] Comment on above: Performed By: #### A MY, CMP, LIPA #### [facility] [address] [place] [address] [address] Luis Enrique De La Cruz Albumin/Globulin [Mass ratio] 0.9 {ratio} Normal [facility] Comment on above: Performed By: #### A MY, CMP, LIPA #### [facility] [address] [place] [address] [address] Luis Enrique De La Cruz ALP [Catalytic activity/Vol] 84 U/L Normal 46-116 [facility] Comment on above: Performed By: #### A MY, CMP, LIPA #### [facility] [address] [place] [address] Dr. Luis Enrique De La Cruz ALT [Catalytic activity/Vol] 51 U/L Normal 14-59 [facility] Comment on above: Performed By: #### A MY, CMP, LIPA #### [facility] [address] [place] [address] [address] Luis Enrique De La Cruz Anion gap [Moles/Vol] 11.7 mmol/L Normal [facility] Comment on above: Performed By: #### A MY, CMP, LIPA #### [facility] [address] [place] [address] Dr. Luis Enrique De La Cruz AST [Catalytic activity/Vol] 63 U/L Critically high 15-37 [facility] Comment on above: Performed By: #### A MY, CMP, LIPA #### [facility] [address] [place] [address] [address] Luis Enrique De La Cruz Bilirubin [Mass/Vol] 0.5 mg/dL Normal 0.2-1.0 [facility] Comment on above: Performed By: #### A MY, CMP, LIPA #### [facility] [address] [place] [address] Dr. Luis Enrique De La Cruz Calcium [Mass/Vol] 8.6 mg/dL Normal 8.5-10.1 [facility] Comment on above: Performed By: #### A MY, CMP, LIPA #### [facility] [address] [place] [address] Dr. Luis Enrique De La Cruz Chloride [Moles/Vol] 103 mmol/L Normal 98-107 [facility] Comment on above: Performed By: #### A MY, CMP, LIPA #### [facility] [address] [place] [address] [address] Luis Enrique De La Cruz CO2 [Moles/Vol] 28.5 mmol/L Normal 21.0-32.0 [facility] Comment on above: Performed By: #### A MY, CMP, LIPA #### [facility] [address] [place] [address] [address] Luis Enrique De La Cruz Creatinine [Mass/Vol] 0.71 mg/dL Normal 0.55-1.02 [facility] Comment on above: Performed By: #### A MY, CMP, LIPA #### [facility] [address] [place] [address] [address] Luis Enrique De La Cruz EGFR-AF BURKINAN >60 Normal >=60 [facility] Comment on above: Performed By: #### A MY, CMP, LIPA #### [facility] [address] [place] [address] [address] Luis Enrique De La Cruz EGFR-NON AF BURKINAN >60 Normal >=60 [facility] Comment on above: Performed By: #### A MY, CMP, LIPA #### [facility] [address] [place] [address] [address] Luis Enrique De La Cruz Globulin (S) [Mass/Vol] 3.8 g/dL Normal [facility] Comment on above: Performed By: #### A MY, CMP, LIPA #### [facility] [address] [place] [address] [address] Luis Enrique De La Cruz Glucose [Mass/Vol] 159 mg/dL Critically high 74-106 [facility] Comment on above: Performed By: #### A MY, CMP, LIPA #### [facility] [address] [place] [address] [address] Luis Enrique De La Cruz Potassium [Moles/Vol] 4.2 mmol/L Normal 3.5-5.1 [facility] Comment on above: Performed By: #### A MY, CMP, LIPA #### [facility] [address] [place] [address] [address] Luis Enrique De La Cruz Protein [Mass/Vol] 7.3 g/dL Normal 6.4-8.2 [facility] Comment on above: Performed By: #### A MY, CMP, LIPA #### [facility] [address] [address] [address] Luis Enrique De La Cruz Sodium [Moles/Vol] 139 mmol/L Normal 136-145 [facility] Comment on above: Performed By: #### A MY, CMP, LIPA #### [facility] [address] [place] [address] Dr. Luis Enrique De La Cruz Urea nitrogen [Mass/Vol] 7.0 mg/dL Normal 7.0-18.0 [facility] Comment on above: Performed By: #### A MY, CMP, LIPA #### [facility] [address] [place] [address] Dr. Luis Enrique De La Cruz Urea nitrogen/Creatini ne [Mass ratio] 9.9 mg/mg Normal [facility] Comment on above: Performed By: #### A MY, CMP, LIPA #### [facility] [address] [place] [address] Dr. Luis Enrique De La Cruz URINE MICROSCOPIC ONLYon BACTERIA NONE SEEN Normal NONE SEEN [facility] Comment on above: Performed By: #### A MY, CMP, LIPA #### [facility] [address] [place] [address] Dr. Luis Enrique De La Cruz Bacteria identified Cx Nom (U) NOT INDICATED Normal [facility] Comment on above: Performed By: #### A MY, CMP, LIPA #### [facility] [address] [place] [address] Dr. Luis Enrique De La Cruz CAST NONE SEEN Normal NONE SEEN [facility] Comment on above: Performed By: #### A MY, CMP, LIPA #### [facility] [address] [place] [address] Dr. Luis Enrique De La Cruz Crystals LM Nom (Urine sed) NONE SEEN Normal NONE SEEN [facility] Comment on above: Performed By: #### A MY, CMP, LIPA #### [facility] [address] [address] [address] Luis Enrique De La Cruz Epithelial cells LM Ql (Urine sed) RARE Normal NONE SEEN /RARE [facility] Comment on above: Performed By: #### A MY CMP, LIPA #### [facility] [address] [address] [address] Luis Enrique De La Cruz MUCOUS NONE SEEN Normal NONE SEEN [facility] Comment on above: Performed By: #### A MY CMP, LIPA #### [facility] [address] [address] [address] Luis Enrique De La Cruz RBC 0-2 Normal 0-2 [facility] Comment on above: Performed By: #### A MY CMP, LIPA #### [facility] [address] [address] [address] Luis Enrique De La Cruz WBC 0-2 Abnormal NONE SEEN [facility] Comment on above: Performed By: #### A MY CMP, LIPA #### [facility] [address] [address] [address] Luis Enrique De La Cruz COVID + FLU Quick Testingon 03-30-2022 SARS-CoV-2 (COVID-19) RNA JADEN+probe Ql (Unsp spec) Positive [employer] Other COVID + FLU Quick Testing Negative [facility] [employer] Other GLYCOHEMOGLOBIN A1Con 2021 ADA RECOMMENDATION SEE BELOW Normal [facility] Comment on above: Result Comment: ADA RECOMMENDED LIMIT 4.0 - 6.0 ADA THERAPEUTIC TARGET < 7.0 ACTION SUGGESTED > 7.0 Performed By: #### A 1C #### [facility] [address] [address] [address] Luis Enrique De La Cruz Glucose [Mass/Vol] 117 mg/dL Normal [facility] Comment on above: Performed By: #### A 1C #### [facility] [address] [address] [address] Luis Enrique De La Cruz HbA1c (Bld) [Mass fraction] 5.7 % Normal 4.5-6.2 [facility] Comment on above: Performed By: #### A 1C #### [facility] [address] [address] [address] Luis Enrique De La Cruz PROF CHEM 8 (BAS METB)on Anion gap [Moles/Vol] 10.7 mmol/L Normal [facility] Comment on above: Performed By: #### A MY, CMP, LIPA #### [facility] [address] [place] [address] Dr. Luis Enrique De La Cruz Calcium [Mass/Vol] 8.7 mg/dL Normal 8.5-10.1 [facility] Comment on above: Performed By: #### A MY, CMP, LIPA #### [facility] [address] [place] [address] Dr. Luis Enrique De La Cruz Chloride [Moles/Vol] 101 mmol/L Normal 98-107 [facility] Comment on above: Performed By: #### A MY, CMP, LIPA #### [facility] [address] [place] [address] Dr. Luis Enrique De La Cruz CO2 [Moles/Vol] 29.5 mmol/L Normal 21.0-32.0 [facility] Comment on above: Performed By: #### A MY, CMP, LIPA #### [facility] [address] [place] [address] Dr. Luis Enrique De La Cruz Creatinine [Mass/Vol] 0.69 mg/dL Normal 0.55-1.02 [facility] Comment on above: Performed By: #### A MY, CMP, LIPA #### [facility] [address] [place] [address] Dr. Luis Enrique De La Cruz EGFR-AF BURKINAN >60 Normal >=60 [facility] Comment on above: Performed By: #### A MY, CMP, LIPA #### [facility] [address] [place] [address] Dr. Luis Enrique De La Cruz EGFR-NON AF BURKINAN >60 Normal >=60 [facility] Comment on above: Performed By: #### A MY, CMP, LIPA #### [facility] [address] [place] [address] Dr. Luis Enrique De La Cruz Glucose [Mass/Vol] 101 mg/dL Normal 74-106 [facility] Comment on above: Performed By: #### A MY, CMP, LIPA #### [facility] [address] [place] [address] Dr. Luis Enrique De La Cruz Potassium [Moles/Vol] 4.2 mmol/L Normal 3.5-5.1 [facility] Comment on above: Performed By: #### A MY, CMP, LIPA #### [facility] [address] [place] [address] Dr. Luis Enrique De La Cruz Sodium [Moles/Vol] 137 mmol/L Normal 136-145 [facility] Comment on above: Performed By: #### A MY, CMP, LIPA #### [facility] [address] [place] [address] Dr. Luis Enrique De La Cruz Urea nitrogen [Mass/Vol] 9.0 mg/dL Normal 7.0-18.0 [facility] Comment on above: Performed By: #### A MY, CMP, LIPA #### [facility] [address] [place] [address] Dr. Luis Enrique De La Cruz Urea nitrogen/Creatini ne [Mass ratio] 13.0 mg/mg Normal [facility] Comment on above: Performed By: #### A MY, CMP, LIPA #### [facility] [address] [place] [address] Dr. Luis Enrique De La Cruz CBC AUTO DIFFon 10-09-2021 BASO # 0.1 103/ul Normal 0.0-0.1 [facility] Comment on above: Performed By: #### C BC #### [facility] [address] [place] [address] Dr. Luis Enrique De La Cruz Basophils/100 WBC (Bld) 0.5 % Normal 0.2-2.0 [facility] Comment on above: Performed By: #### C BC #### [facility] [address] [place] [address] Dr. Luis Enrique De La Cruz EO # 0.2 103/ul Normal 0.0-0.7 [facility] Comment on above: Performed By: #### C BC #### [facility] [address] [place] [address] Dr. Luis Enrique De La Cruz Eosinophils/100 WBC (Bld) 1.6 % Normal 0.9-7.0 [facility] Comment on above: Performed By: #### C BC #### [facility] [address] [place] [address] Dr. Luis Enrique De La Cruz Erythrocyte distribution width (RBC) [Ratio] 14.3 % Normal 11.0-15.0 [facility] Comment on above: Performed By: #### C BC #### [facility] [address] [place] [address] Dr. Luis Enrique De La Cruz Hematocrit (Bld) [Volume fraction] 38.8 % Normal 36.0-48.0 [facility] Comment on above: Performed By: #### C BC #### [facility] [address] [place] [address] Dr. Luis Enrique De La Cruz Hemoglobin (Bld) [Mass/Vol] 12.3 g/dL Normal 12.0-16.0 [facility] Comment on above: Performed By: #### C BC #### [facility] [address] [place] [address] Dr. Luis Enrique De La Cruz IG # 0.05 10e3/ul Critically high 0.00-0.03 [facility] Comment on above: Performed By: #### C BC #### [facility] [address] [place] [address] Dr. Luis Enrique De La Cruz IG % 0.5 % Normal 0.0-0.5 [facility] Comment on above: Performed By: #### C BC #### [facility] [address] [place] [address] Dr. Luis Enrique De La Cruz LYMPH # 2.9 103/ul Normal 1.2-3.8 [facility] Comment on above: Performed By: #### C BC #### [facility] [address] [place] [address] Dr. Luis Enrique De La Cruz Lymphocytes/100 WBC (Bld) 27.6 % Normal 20.5-60.0 [facility] Comment on above: Performed By: #### C BC #### [facility] [address] [place] [address] Dr. Luis Enrique De La Cruz MANUAL DIFF REQ NO Normal [facility] Comment on above: Performed By: #### C BC #### [facility] [address] [place] [address] Dr. Luis Enrique De La Cruz MCH (RBC) [Entitic mass] 27.7 pg Normal 26.7-34.0 [facility] Comment on above: Performed By: #### C BC #### [facility] [address] [place] [address] Dr. Luis Enrique De La Cruz MCHC (RBC) [Mass/Vol] 31.7 g/dL Normal 29.9-35.2 [facility] Comment on above: Performed By: #### C BC #### [facility] [address] [place] [address] Dr. Luis Enrique De La Cruz MCV (RBC) [Entitic vol] 87.4 fL Normal 81.0-99.0 [facility] Comment on above: Performed By: #### C BC #### [facility] [address] [place] [address] Dr. Luis Enrique De La Cruz MONO # 0.6 103/ul Normal 0.3-0.8 [facility] Comment on above: Performed By: #### C BC #### [facility] [address] [place] [address] Dr. Luis Enrique De La Cruz Monocytes/100 WBC (Bld) 6.1 % Normal 1.7-12.0 [facility] Comment on above: Performed By: #### C BC #### [facility] [address] [place] [address] Dr. Luis Enrique De La Cruz NEUT # 6.7 103/ul Critically high 1.4-6.5 [facility] Comment on above: Performed By: #### C BC #### [facility] [address] [place] [address] Dr. Luis Enrique De La Cruz Neutrophils/100 WBC (Bld) 63.7 % Normal 43.0-75.0 [facility] Comment on above: Performed By: #### C BC #### [facility] [address] [place] [address] Dr. Luis Enrique De La Cruz Platelet mean volume (Bld) [Entitic vol] 9.9 fL Normal 9.5-13.5 [facility] Comment on above: Performed By: #### C BC #### [facility] [address] [place] [address] Dr. Luis Enrique De La Cruz PLT 305 103/ul Normal 150-450 [facility] Comment on above: Performed By: #### C BC #### [facility] [address] [place] [address] Dr. Luis Enrique De La Cruz RBC 4.44 106/ul Normal 4.20-5.40 [facility] Comment on above: Performed By: #### C BC #### [facility] [address] [place] [address] Dr. Luis Enrique De La Cruz WBC 10.5 103/ul Normal 4.0-11.0 [facility] Comment on above: Performed By: #### C BC #### [facility] [address] [place] [address] Dr. Luis Enrique De La Cruz FREE T3on 10-09-2021 FREE T3 2.49 pg/mlL Normal 2.18-3.98 [facility] Comment on above: Performed By: #### A MY, CMP, LIPA #### [facility] [address] [place] [address] Dr. Luis Enrique De La Cruz FREE T4on 10-09-2021 Free T4 [Mass/Vol] 0.87 ng/dL Normal 0.76-1.46 [facility] Comment on above: Performed By: #### F T4 #### [facility] [address] [place] [address] Dr. Luis Enrique De La Cruz TSHon 10-09-2021 TSH 2.146 uIU/mL Normal 0.358-3.740 [facility] Comment on above: Performed By: #### A MY, CMP, LIPA #### [facility] [address] [place] [address] Dr. Luis Enrique De La Cruz CBC AUTO DIFFon 07-16-2021 BASO # 0.1 103/ul Normal 0.0-0.1 [facility] Comment on above: Performed By: #### A MY, CMP, LIPA #### [facility] [address] [place] [address] Dr. Luis Enrique De La Cruz Basophils/100 WBC (Bld) 0.3 % Normal 0.2-2.0 [facility] Comment on above: Performed By: #### A MY, CMP, LIPA #### [facility] [address] [place] [address] Dr. Luis Enrique De La Cruz EO # 0.1 103/ul Normal 0.0-0.7 [facility] Comment on above: Performed By: #### A MY, CMP, LIPA #### [facility] [address] [place] [address] Dr. Luis Enrique De La Cruz Eosinophils/100 WBC (Bld) 1.0 % Normal 0.9-7.0 [facility] Comment on above: Performed By: #### A MY, CMP, LIPA #### [facility] [address] [place] [address] Dr. Luis Enrique De La Cruz Erythrocyte distribution width (RBC) [Ratio] 14.5 % Normal 11.0-15.0 [facility] Comment on above: Performed By: #### A MY, CMP, LIPA #### [facility] [address] [place] [address] Dr. Luis Enrique De La Cruz Hematocrit (Bld) [Volume fraction] 42.3 % Normal 36.0-48.0 [facility] Comment on above: Performed By: #### A MY, CMP, LIPA #### [facility] [address] [place] [address] Dr. Luis Enrique De La Cruz Hemoglobin (Bld) [Mass/Vol] 13.2 g/dL Normal 12.0-16.0 [facility] Comment on above: Performed By: #### A MY, CMP, LIPA #### [facility] [address] [place] [address] Dr. Luis Enrique De La Cruz IG # 0.09 10e3/ul Critically high 0.00-0.03 [facility] Comment on above: Performed By: #### A MY, CMP, LIPA #### [facility] [address] [place] [address] Dr. Luis Enrique De La Cruz IG % 0.6 % Critically high 0.0-0.5 [facility] Comment on above: Performed By: #### A MY, CMP, LIPA #### [facility] [address] [place] [address] Dr. Luis Enrique De La Cruz LYMPH # 1.0 103/ul Critically low 1.2-3.8 [facility] Comment on above: Performed By: #### A MY, CMP, LIPA #### [facility] [address] [place] [address] Dr. Luis Enrique De La Cruz Lymphocytes/100 WBC (Bld) 7.1 % Critically low 20.5-60.0 [facility] Comment on above: Performed By: #### A MY, CMP, LIPA #### [facility] [address] [place] [address] Dr. Luis Enrique De La Cruz MANUAL DIFF REQ NO Normal [facility] Comment on above: Performed By: #### A MY, CMP, LIPA #### [facility] [address] [place] [address] Dr. Luis Enrique De La Cruz MCH (RBC) [Entitic mass] 27.4 pg Normal 26.7-34.0 [facility] Comment on above: Performed By: #### A MY, CMP, LIPA #### [facility] [address] [place] [address] Dr. Luis Enrique De La Cruz MCHC (RBC) [Mass/Vol] 31.2 g/dL Normal 29.9-35.2 [facility] Comment on above: Performed By: #### A MY, CMP, LIPA #### [facility] [address] [place] [address] Dr. Luis Enrique De La Cruz MCV (RBC) [Entitic vol] 87.8 fL Normal 81.0-99.0 [facility] Comment on above: Performed By: #### A MY, CMP, LIPA #### [facility] [address] [place] [address] Dr. Luis Enrique De La Cruz MONO # 1.0 103/ul Critically high 0.3-0.8 [facility] Comment on above: Performed By: #### A MY, CMP, LIPA #### [facility] [address] [place] [address] Dr. Luis Enrique De La Cruz Monocytes/100 WBC (Bld) 6.6 % Normal 1.7-12.0 [facility] Comment on above: Performed By: #### A MY, CMP, LIPA #### [facility] [address] [place] [address] Dr. Luis Enrique De La Cruz NEUT # 12.4 103/ul Critically high 1.4-6.5 [facility] Comment on above: Performed By: #### A MY, CMP, LIPA #### [facility] [address] [place] [address] Dr. Luis Enrique De La Cruz Neutrophils/100 WBC (Bld) 84.4 % Critically high 43.0-75.0 [facility] Comment on above: Performed By: #### A MY, CMP, LIPA #### [facility] [address] [place] [address] Dr. Luis Enrique De La Cruz Platelet mean volume (Bld) [Entitic vol] 10.0 fL Normal 9.5-13.5 [facility] Comment on above: Performed By: #### A MY, CMP, LIPA #### [facility] [address] [place] [address] Dr. Luis Enrique De La Cruz PLT 357 103/ul Normal 150-450 [facility] Comment on above: Performed By: #### A MY, CMP, LIPA #### [facility] [address] [place] [address] Dr. Luis Enrique De La Cruz RBC 4.82 106/ul Normal 4.20-5.40 [facility] Comment on above: Performed By: #### A MY, CMP, LIPA #### [facility] [address] [place] [address] Dr. Luis Enrique De La Cruz WBC 14.7 103/ul Critically high 4.0-11.0 [facility] Comment on above: Performed By: #### A MY, CMP, LIPA #### [facility] [address] [place] [address] Dr. Luis Enrique De La Cruz PREG HCG QUALon 07-16-2021 , QUAL Negative Normal NEGATIVE [facility] Comment on above: Performed By: #### P REG #### [facility] [address] [place] [address] Dr. Luis Enrique De La Cruz PROF 14(COMP METB)on 022 Albumin [Mass/Vol] 3.9 g/dL Normal 3.4-5.0 [facility] Comment on above: Performed By: #### C MP #### [facility] [address] [place] [address] Dr. Luis Enrique De La Cruz Albumin/Globulin [Mass ratio] 1.1 {ratio} Normal [facility] Comment on above: Performed By: #### C MP #### [facility] [address] [place] [address] Dr. Luis Enrique De La Cruz ALP [Catalytic activity/Vol] 88 U/L Normal 46-116 [facility] Comment on above: Performed By: #### C MP #### [facility] [address] [place] [address] Dr. Luis Enrique De La Cruz ALT [Catalytic activity/Vol] 50 U/L Normal 14-59 [facility] Comment on above: Performed By: #### C MP #### [facility] [address] [place] [address] Dr. Luis Enrique De La Cruz Anion gap [Moles/Vol] 15.6 mmol/L Normal [facility] Comment on above: Performed By: #### C MP #### [facility] [address] [place] [address] Dr. Luis Enrique De La Cruz AST [Catalytic activity/Vol] 37 U/L Normal 15-37 [facility] Comment on above: Performed By: #### C MP #### [facility] [address] [place] [address] Dr. Luis Enrique De La Cruz Bilirubin [Mass/Vol] 0.5 mg/dL Normal 0.2-1.0 [facility] Comment on above: Performed By: #### C MP #### [facility] [address] [place] [address] Dr. Luis Enrique De La Cruz Calcium [Mass/Vol] 8.8 mg/dL Normal 8.5-10.1 [facility] Comment on above: Performed By: #### C MP #### [facility] [address] [address] [address] Luis Enrique De La Cruz Chloride [Moles/Vol] 104 mmol/L Normal 98-107 [facility] Comment on above: Performed By: #### C MP #### [facility] [address] [address] [address] Luis Enrique De La Cruz CO2 [Moles/Vol] 23.8 mmol/L Normal 21.0-32.0 [facility] Comment on above: Performed By: #### C MP #### [facility] [address] [address] [address] Luis Enrique De La Cruz Creatinine [Mass/Vol] 0.81 mg/dL Normal 0.55-1.02 [facility] Comment on above: Performed By: #### C MP #### [facility] [address] [address] [address] Luis Enrique De La Cruz EGFR-AF BURKINAN >60 Normal >=60 [facility] Comment on above: Performed By: #### C MP #### [facility] [address] [address] [address] Luis Enrique De La Cruz EGFR-NON AF BURKINAN >60 Normal >=60 [facility] Comment on above: Performed By: #### C MP #### [facility] [address] [address] [address] Luis Enrique De La Cruz Globulin (S) [Mass/Vol] 3.7 g/dL Normal [facility] Comment on above: Performed By: #### C MP #### [facility] [address] [address] [address] Luis Enrique De La Cruz Glucose [Mass/Vol] 128 mg/dL Critically high 74-106 [facility] Comment on above: Performed By: #### C MP #### [facility] [address] [place] [address] Dr. Luis Enrique De La Cruz Potassium [Moles/Vol] 4.4 mmol/L Normal 3.5-5.1 [facility] Comment on above: Performed By: #### C MP #### [facility] [address] [address] [address] Luis Enrique De La Cruz Protein [Mass/Vol] 7.6 g/dL Normal 6.4-8.2 [facility] Comment on above: Performed By: #### C MP #### [facility] [address] [address] [address] Luis Enrique De La Cruz Sodium [Moles/Vol] 139 mmol/L Normal 136-145 [facility] Comment on above: Performed By: #### C MP #### [facility] [address] [address] [address] Luis Enrique De La Cruz Urea nitrogen [Mass/Vol] 14.0 mg/dL Normal 7.0-18.0 [facility] Comment on above: Performed By: #### C MP #### [facility] [address] [address] [address] Luis Enrique De La Cruz Urea nitrogen/Creatini ne [Mass ratio] 17.3 mg/mg Normal [facility] Comment on above: Performed By: #### C MP #### [facility] [address] [address] [address] Luis Enrique De La Cruz Vital Signs Date Time Vital Sign Value Performing Clinician Facility 10-07-2023 10:05-0400 Blood Pressure Location Katherine Srinivasan [facility] 10-07-2023 10:05-0400 Diastolic blood pressure 99 mm[Hg] Katherine Srinivasan [facility] 10-07-2023 10:05-0400 Heart rate 71 /min Katherine Srinivasan [facility] 10-07-2023 10:05-0400 Mean blood pressure 114 mm[Hg] Katherine Srinivasan [facility] 10-07-2023 10:05-0400 Respiratory rate 14 /min Katherine Srinivasan [facility] 10-07-2023 10:05-0400 SaO2% (BldA) [Mass fraction] 99 % Mohamad Mouchli [facility] 10-07-2023 10:05-0400 Systolic blood pressure 143 mm[Hg] Mohamad Mouchli [facility] 10-07-2023 09:55-0400 Blood Pressure Location Mohamad Mouchli [facility] 10-07-2023 09:55-0400 Diastolic blood pressure 96 mm[Hg] Mohamad Mouchli [facility] 10-07-2023 09:55-0400 Heart rate 78 /min Mohamad Mouchli [facility] 10-07-2023 09:55-0400 Mean blood pressure 111 mm[Hg] Mohamad Mouchli [facility] 10-07-2023 09:55-0400 Respiratory rate 16 /min Mohamad Mouchli [facility] 10-07-2023 09:55-0400 SaO2% (BldA) [Mass fraction] 100 % Mohamad Mouchli [facility] 10-07-2023 09:55-0400 Systolic blood pressure 140 mm[Hg] Mohamad Mouchli [facility] 10-07-2023 09:50-0400 Blood Pressure Location Mohamad Mouchli [facility] 10-07-2023 09:50-0400 Diastolic blood pressure 90 mm[Hg] Mohamad Mouchli [facility] 10-07-2023 09:50-0400 Heart rate 80 /min Mohamad Mouchli [facility] 10-07-2023 09:50-0400 Mean blood pressure 105 mm[Hg] Mohamad Mouchli [facility] 10-07-2023 09:50-0400 Respiratory rate 17 /min Mohamad Mouchli [facility] 10-07-2023 09:50-0400 SaO2% (BldA) [Mass fraction] 97 % Mohamad Mouchli [facility] 10-07-2023 09:50-0400 Systolic blood pressure 135 mm[Hg] Mohamad Mouchli [facility] 10-07-2023 09:40-0400 Body temperature 97.88 [degF] Mohamad Mouchli [facility] 10-07-2023 09:25-0400 Respiratory rate 10 /min Mohamad Mouchli [facility] 10-07-2023 09:20-0400 Respiratory rate 10 /min Mohamad Mouchli [facility] 10-07-2023 09:15-0400 Respiratory rate 12 /min Mohamad Mouchli [facility] 10-07-2023 08:14-0400 Body temperature 98.06 [degF] Mohamad Mouchli [facility] 09-23-2023 14:14-0400 Blood Pressure Location Mohamad Mouchli [facility] 09-23-2023 14:14-0400 Diastolic blood pressure 81 mm[Hg] Mohamad Mouchli [facility] 09-23-2023 14:14-0400 Heart rate 91 /min Mohamad Mouchli [facility] 09-23-2023 14:14-0400 Respiratory rate 16 /min Katherine Srinivasan [facility] 09-23-2023 14:14-0400 Systolic blood pressure 122 mm[Hg] Katherine Srinivasan [facility] 12-26-2022 14:27-0400 Blood Pressure Location Brain NILL [facility] [place] 12-26-2022 14:27-0400 Diastolic blood pressure 96 mm[Hg] [facility] [place] 12-26-2022 14:27-0400 Heart rate 80 /min Brain [facility] [place] 12-26-2022 14:27-0400 Respiratory rate 16 /min Brain [facility] [place] 12-26-2022 14:27-0400 Systolic blood pressure 140 mm[Hg] [facility] [place] 03-30-2022 12:00-0500 Body height 180.34 cm Deedee Mariano Other [employer] Other 03-30-2022 12:00-0500 Body mass index (BMI) [Ratio] 62.76 kg/m2 Deedee Mariano Other [employer] Other 03-30-2022 12:00-0500 Body temperature 97.7 [degF] Deedee Mariano Other [employer] Other 03-30-2022 12:00-0500 Body weight 204.12 kg Deedee Mariano Other [employer] Other 03-30-2022 12:00-0500 Diastolic blood pressure 94 mm[Hg] Deedee Mariano Other [employer] Other 03-30-2022 12:00-0500 Respiratory rate 18 /min Deedee Mariano Other [employer] Other 03-30-2022 12:00-0500 SaO2% (BldA) [Mass fraction] 97 % Deedee Mariano Other [employer] Other 03-30-2022 12:00-0500 Systolic blood pressure 139 mm[Hg] Deedee Mariano Other [employer] Other Encounters Encounter Date Encounter Type Care Provider Facility Start: 11-02-2024 ambulatory Zandra L Laith [facility]: [facility] Start: 10-05-2024 End: 10-05-2024 ambulatory Zandra L Laith Facility:[facility] [place] Start: 09-16-2024 End: 09-16-2024 ambulatory EDUARDO BEARANN Facility:[facility] [place] Start: 08-16-2024 End: 08-16-2024 ambulatory Zandra L Laith Facility:[facility] [place] Start: 06-20-2024 End: 06-20-2024 ambulatory Thiago Gambino Facility: [facility] [place] Start: 03-22-2024 End: 03-22-2024 ambulatory 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 Zandra L Laith Facility:[facility] Start: 03-22-2024 End: 03-22-2024 Lab Drop off Zandra L Laith [facility] Start: 03-22-2024 End: 03-22-2024 ambulatory Zandra L Laith Facility:[facility] [place] Start: 12-21-2023 End: 12-21-2023 Lab Drop off Thiago Gambino [facility] Start: 12-21-2023 End: 12-21-2023 ambulatory Thiago Gambino Facility:[facility] Start: 10-19-2023 End: 10-19-2023 ambulatory Thiago Gambino Facility:[facility] [place] Start: 10-07-2023 End: 10-07-2023 ambulatory Katherine Srinivasan Facility:[facility] Start: 10-07-2023 End: 10-07-2023 Patient encounter procedure Katherien Srinivasan [facility] Start: 09-23-2023 End: 09-23-2023 ambulatory Katherine Srinivasan Facility:[facility] Start: 09-23-2023 End: 09-23-2023 Patient encounter procedure Katherine Srinivasan [facility] Start: 09-08-2023 End: 09-08-2023 ambulatory Thiago Gambino Facility: [facility] [place] Start: 07-31-2023 ambulatory Brain TILLEY Facility:[facility] Start: 07-21-2023 End: 07-21-2023 ambulatory Thiago Gambino Facility: [facility] [place] Start: 06-15-2023 End: 06-15-2023 ambulatory Thiago Gambino Facility: [facility] [place] Start: 03-16-2023 End: 03-16-2023 ambulatory Thiago Gambino Facility: [facility] [place] Start: 01-21-2023 End: 01-21-2023 ambulatory Brain THOMASL Facility:CD:[id number] Start: 12-26-2022 End: 12-26-2022 ambulatory Brain R NILL Facility: [facility] Start: 12-26-2022 End: 12-26-2022 Patient encounter procedure Brain TILLEY [facility] Start: 12-24-2022 End: 12-24-2022 ambulatory Thiago Gambino Facility: [facility] [place] Start: 12-16-2022 ambulatory Brain TILLEY Facility:[facility] Start: 12-04-2022 End: 12-04-2022 ambulatory Thiago Candida Immanuel Facility:[facility] Start: 06-11-2022 End: 06-12-[address] JERAMY RIVERS . Facility:[facility] Start: 03-30-2022 End: 03-30-2022 ambulatory Deedee Montserrat Other [employer] Other Start: 03-30-2022 Office outpatient ne w 20 minutes Deedee Mariano [facility] Start: 01-10-2022 End: 01-11-[address] JERAMY RIVERS . Facility:[facility] Start: 12-31-[address] JERAMY RIVERS . Facil ity:[facility] Start: 10-09-2021 End: 10-10-[address] JERAMY RIVERS . Facility:[facility] Start: 07-16-2021 End: 07-16-[address] JERAMY RIVERS . Facility: Procedures Date Procedure Procedure Detail Performing Clinician Start: 10-07-2023 Colonoscopy Katherine Srinivasan Esophagogastroduodenoscopy M danica Srinivasan Excision of anal skin tag Tho Srinivasan Tonsillectomy and adenoidectomy Brain T[facility]LEY Immunizations Immunization Date Immunization Notes Care Provider [facility] 05-08-2021 SARS-CoV-2 mRNA (chwpqnxmrqt-iyga-mgaa ose) vaccine Brain [facility] 04-15-2021 SARS-CoV-2 mRNA (gzytvmzaeog-kvmq-povi ose) vaccine [facility] 02-22-2008 Hep A, unspecified formulation Brain [facility] 02-22-2008 hepatitis B vaccine, pediatric or pediatric/adolescent dosage Brain [facility] 09-21-2007 hepatitis B vaccine, pediatric or pediatric/adolescent dosage [facility] 08-19-2007 Hep A, unspecified formulation [facility] 08-19-2007 hepatitis B vaccine, pediatric or pediatric/adolescent dosage [facility] 08-19-2007 tetanus toxoid, reduced diphtheria toxoid, and acellular pertussis vaccine, adsorbed [facility] 07-13-2001 measles, mumps and rubella virus vaccine [facility] 03-13-1995 DTaP, unspecified formulation [facility] 07-16-1992 Hib, unspecified formulation [facility] 07-16-1992 measles, mumps and rubella virus vaccine [facility] 09-27-1990 Hib, unspecified formulation [facility] NEGATED: Highlighted row has not occurred!12-24-2022 influenza virus vaccine, unspecified formulation [facility] NEGATED: Highlighted row has not occurred!12-04-2022 influenza virus vaccine, unspecified formulation [facility] Payers Date Payer Category Payer Unknown [id number] 2.16.84 [id number] 1989 Unknown [id number] 2.16.84 0.1.747664.3.579.2.593 1989 Unknown [id number] 2.16.84 0.1.184552.3.579.2.593 1989 Unknown [id number] 2.16.84 0.1.300877.3.579.2.593 1989 Unknown [id number] 2.16.84 0.1.693986.3.579.2.593 1989 Unknown [id number] 2.16.8 40.1.674728.3.579.2.72 1989 Unknown [id number] 2.16.8 40.1.158381.3.579.2. 1989 Unknown [id number] 2.16.8 40.1.529842.3.579.2.72 1989 Unknown [id number] 2.16.8 40.1.653077.3.579.2. 1989 Unknown [id number] 2.16.8 40.1.453654.3.579.2. 1989 Unknown [id number] 2.16.8 40.1.377522.3.579.2. 1989 Unknown [id number] 2.16.8 40.1.760978.3.579.2.72 1989 Unknown [id number] 2.16.8 40.1.958405.3.579.2. 1989 Unknown [id number] 2.16.8 40.1.407162.3.579.2.72 1989 Unknown [id number] 2.16.8 40.1.683890.3.579.2. 1989 Unknown [id number] 2.16.8 40.1.975781.3.579.2. 1989 Unknown [id number] 2.16.8 40.1.013550.3.579.2. 1989 Unknown [id number] 2.16.8 40.1.791274.3.579.2.727 1989 Unknown [id number] 2.16.8 40.1.894647.3.579.2. 1989 Unknown [id number] 2.16.8 40.1.378133.3.579.2.727 1989 Unknown [id number] 2.16.8 40.1.725178.3.579.2. 1989 Unknown [id number] 2.16.8 40.1.044040.3.579.2.7 1989 Unknown [id number] 2.16.8 40.1.018256.3.579.2. 1989 Unknown [id number] 2.16.8 40.1.662890.3.579.2. 1989 Unknown [id number] 2.16.8 40.1.006813.3.579.2.727 1960 [facility] KCKAN [id number] [id number] 1960 Self-pay Social History Date Type Detail Facility Sex Assigned At [facility] Start: 12-26-2022 End: 09-23-2023 Tobacco smoking status Never smoked tobacco (finding) [facility] Tobacco vape Tobacco Use :. Vaping [facility] Tobacco smoking status No Smokin g Status Entered [facility] Functional Status Date Assessment Result Facility 10-07-2023 Functional Status N/A [facility] 09-23-2023 Functional Status N/A [facility] 12-26-2022 Functional Status N/A [facility] 03-30-2022 to 09-16-2024 Note Date & Type Note Facility 09-16-2024 Note Nurse Consultation N [place] Reason for Visit Pt presents today for urine drug screen. Assessment/Plan 1. Weight loss (R63.4: Abnormal weight loss) 2. Morbid obesity with BMI of 50.0-59.9, adult (E66.01: Morbid (severe) obesity due to excess calories) Medications Diflucan 150 mg Tab, 150 mg= 1 tab(s), Oral, Once, 1 refills Farxiga 10 mg oral tablet, 10 mg= 1 tab(s), Oral, Daily, 4 refills Knee Brace, See Instructions levothyroxine 125 mcg (0.125 mg) Tab, See Instructions losartan 50 mg Tab, See Instructions, 4 refills metformin 500 mg Tab, See Instructions, 4 refills metoprolol succinate 25 mg ER Tab, 25 mg= 1 tab(s), Oral, Daily, 4 refills omeprazole 40 mg Cap-DR, See Instructions phentermine 37.5 mg Tab, 37.5 mg= 1 tab(s), Oral, Daily venlafaxine 150 mg Cap-ER, See Instructions Allergies penicillin (Unknown) Immunizations Vaccine Date Status Comments influenza virus vaccine, inactivated - Not Given Patient Refuses influenza virus vaccine, inactivated - Not Given Postpone due to refusal SARSCoV2 mRNA(tlooyapul-lbms-xriwug) vac 05/08/2021 Recorded SARSCoV2 mRNA(mcqtlmmup-nfds-vvbvra) vac 04/15/2021 Recorded hepatitis B pediatric vaccine 02/22/2008 Recorded Hep A, unspecified formulation 02/22/2008 Recorded hepatitis B pediatric vaccine 09/21/2007 Recorded diphtheria/pertussis, acel/tetanus adult 08/19/2007 Recorded hepatitis B pediatric vaccine 08/19/2007 Recorded Hep A, unspecified formulation 08/19/2007 Recorded measles/mumps/rubella virus vaccine 07/13/2001 Recorded DTaP, unspecified formulation 03/13/1995 Recorded measles/mumps/rubella virus vaccine 07/16/1992 Recorded Hib, unspecified formulation 07/16/1992 Recorded Hib, unspecified formulation 09/27/1990 Recorded Lab Results Ambulatory Point of Care Results Cocaine Result: Negative (09/16/24 08:57:00) Amphetamines Result: Positive (09/16/24 08:57:00) Barbiturates Result: Negative (09/16/24 08:57:00) MDMA Result: Negative (09/16/24 08:57:00) Methadone Result: Negative (09/16/24 08:57:00) Opiates Result: Negative (09/16/24 08:57:00) Oxycodone Result: Negative (09/16/24 08:57:00) Phencyclidine (PCP) Result: Negative (09/16/24 08:57:00) Tricyclic Antidepressants Result: Negative (09/16/24 08:57:00) Benzodiazepines Quant: Negative (09/16/24 08:57:00) THC Result POC: Negative (09/16/24 08:57:00) [facility] 12-21-2023 Note Patient Education Nutrition BMI for Adults Body mass index (BMI) is a number found using a person's weight and height. BMI can help tell how much of a person's weight is made up of fat. BMI does not measure body fat directly. It is used instead of tests that directly measure body fat, which can be difficult and expensive. What are BMI measurements used for? BMI is useful to: ??? Find out if your weight puts you at higher risk for medical problems. ??? Help recommend changes, such as in diet and exercise. This can help you reach a healthy weight. BMI screening can be done again to see if these changes are working. How is BMI calculated? Your height and weight are measured. The BMI is found from those numbers. This can be done with U.S. or metric measurements. Note that charts and online BMI calculators are available to help you find your BMI quickly and easily without doing these calculations. To calculate your BMI in U.S. measurements: 1. Measure your weight in pounds (lb). 2. Multiply the number of pounds by 703. ??? So, for an adult who weighs 150 lb, multiply that number by 703: 150 x 703, which equals 105,450. 3. Measure your height in inches. Then multiply that number by itself to get a measurement called inches squared. ??? So, for an adult who is 70 inches tall, the inches squared measurement is 70 inches x 70 inches, which equals 4,900 inches squared. 4. Divide the total from step 2 (number of lb x 703) by the total from step 3 (inches squared): 105,450 ? 4,900 = 21.5. This is your BMI. To calculate your BMI in metric measurements: 1. Measure your weight in kilograms (kg). ??? For this example, the weight is 70 kg. 2. Measure your height in meters (m). Then multiply that number by itself to get a measurement called meters squared. ??? So, for an adult who is 1.75 m tall, the meters squared measurement is 1.75 m x 1.75 m, which equals 3.1 meters squared. 3. Divide the number of kilograms (your weight) by the meters squared number. In this example: 70 ? 3.1 = 22.6. This is your BMI. What do the results mean? BMI charts are used to see if you are underweight, normal weight, overweight, or obese. The following guidelines will be used: ??? Underweight: BMI less than 18.5. ??? Normal weight: BMI between 18.5 and 24.9. ??? Overweight: BMI between 25 and 29.9. ??? Obese: BMI of 30 or above. BMI is a tool and cannot diagnose a condition. Talk with your health care provider about what your BMI means for you. Keep these notes in mind: ??? Weight includes fat and muscle. Someone with a muscular build, such as an athlete, may have a BMI that is higher than 24.9. In cases like these, BMI is not a correct measure of body fat. ??? If you have a BMI of 25 or higher, your provider may need to do more testing to find out if excess body fat is the cause. ??? BMI is measured the same way for males and females. Females usually have more body fat than males of the same height and weight. Where to find more information For more information about BMI, including tools to quickly find your BMI, go to: ??? Centers for Disease Control and Prevention: cdc.gov ??? [place] Heart Association: heart.org ??? National Heart, Lung, and Blood [place]: nhlbi.nih.gov This information is not intended to replace advice given to you by your health care provider. Make sure you discuss any questions you have with your health care provider. Document Revised: 10/30/2022 Document Reviewed: 10/23/2022 Elsevier Patient Education ? 2023 [employer]. [facility] 10-19-2023 Note Patient Education Nutrition BMI for Adults What is BMI? Body mass index (BMI) is a number that is calculated from a person's weight and height. BMI can help estimate how much of a person's weight is composed of fat. BMI does not measure body fat directly. Rather, it is an alternative to procedures that directly measure body fat, which can be difficult and expensive. BMI can help identify people who may be at higher risk for certain medical problems. What are BMI measurements used for? BMI is used as a screening tool to identify possible weight problems. It helps determine whether a person is obese, overweight, a healthy weight, or underweight. BMI is useful for: ? Identifying a weight problem that may be related to a medical condition or may increase the risk for medical problems. ? Promoting changes, such as changes in diet and exercise, to help reach a healthy weight. BMI screening can be repeated to see if these changes are working. How is BMI calculated? BMI involves measuring your weight in relation to your height. Both height and weight are measured, and the BMI is calculated from those numbers. This can be done either in [place]vorian (U.S[place] or metric measurements. Note that charts and online BMI calculators are available to help you find your BMI quickly and easily without having to do these calculations yourself. To calculate your BMI in [place]ian ([place] measurements: 1. Measure your weight in pounds (lb). 2. Multiply the number of pounds by 703. ? For example, for a person who weighs 180 lb, multiply that number by 703, which equals 126,540. 3. Measure your height in inches. Then multiply that number by itself to get a measurement called inches squared. ? For example, for a person who is 70 inches tall, the inches squared measurement is 70 inches x 70 inches, which equals 4,900 inches squared. 4. Divide the total from step 2 (number of lb x 703) by the total from step 3 (inches squared): 126,540 ? 4,900 = 25.8. This is your BMI. To calculate your BMI in metric measurements: 1. Measure your weight in kilograms (kg). 2. Measure your height in meters (m). Then multiply that number by itself to get a measurement called meters squared. ? For example, for a person who is 1.75 m tall, the meters squared measurement is 1.75 m x 1.75 m, which is equal to 3.1 meters squared. 3. Divide the number of kilograms (your weight) by the meters squared number. In this example: 70 ? 3.1 = 22.6. This is your BMI. What do the results mean? BMI charts are used to identify whether you are underweight, normal weight, overweight, or obese. The following guidelines will be used: ? Underweight: BMI less than 18.5. ? Normal weight: BMI between 18.5 and 24.9. ? Overweight: BMI between 25 and 29.9. ? Obese: BMI of 30 or above. Keep these notes in mind: ? Weight includes both fat and muscle, so someone with a muscular build, such as an athlete, may have a BMI that is higher than 24.9. In cases like these, BMI is not an accurate measure of body fat. ? To determine if excess body fat is the cause of a BMI of 25 or higher, further assessments may need to be done by a health care provider. ? BMI is usually interpreted in the same way for men and women. Where to find more information For more information about BMI, including tools to quickly calculate your BMI, go to these websites: ? Centers for Disease Control and Prevention: www.cdc.gov ? [place] Heart Association: www.heart.org ? National Heart, Lung, and Blood [place]: www.nhlbi.nih.gov Summary ? Body mass index (BMI) is a number that is calculated from a person's weight and height. ? BMI may help estimate how much of a person's weight is composed of fat. BMI can help identify those who may be at higher risk for certain medical problems. ? BMI can be measured using Ivorian measurements or metric measurements. ? BMI charts are used to identify whether you are underweight, normal weight, overweight, or obese. This information is not intended to replace advice given to you by your health care provider. Make sure you discuss any questions you have with your health care provider. Document Revised: 11/02/2019 Document Reviewed: 09/09/2019 [employer] Patient Education ? 2022 [employer]. [facility] 10-07-2023 Evaluation + Plan note Extrac rudi from: Title:ANES Post General Author:Leno Sullivan DO Date:10/07/23 Plan Transfer/Discharge: Patient exhibiting no signs of N/V. Hydration status is adequate. Extracted from: Title:Nate Basic PRE Author:Ap Sullivan DO. Date:10/07/23 Plan [place] Society of Anesthesiologists (ASA) physical status classification: Class III. Anesthetic Preoperative Plan: Anesthesia General. Future Appointments Appointment Date:10/19/2023 04:30:00 PM Scheduled Provider:Thiago Gambino MD Location:[facility] Appointment Type:[facility] 08-14-2024 Hospital Discharge instructions Patient Education 10/07/2023 09:47:42 Esophagitis Esophagitis Esophagitis is inflammation of the esophagus. The esophagus is the tube that carries food from the mouth to the stomach. Esophagitis can cause soreness or pain in the esophagus. This condition can make it difficult and painful to swallow. What are the causes? Most causes of esophagitis are not serious. Common causes of this condition include: Gastroesophageal reflux disease (GERD). This is when stomach contents move back up into the esophagus (reflux). Repeated vomiting. An allergic reaction, especially caused by food allergies (eosinophilic esophagitis). Injury to the esophagus by swallowing large pills with or without water, or swallowing certain types of medicines. Swallowing harmful chemicals, such as household cleaning products. Drinking a lot of alcohol. An infection of the esophagus. This most often occurs in people who have a weakened immune system. Radiation or chemotherapy treatment for cancer. Certain diseases such as sarcoidosis, Crohn's disease, and scleroderma. What are the signs or symptoms? Symptoms of this condition include: Difficult or painful swallowing. Pain with swallowing acidic liquids, such as citrus juices. You may also have pain when you burp. Chest pain and difficulty breathing. Nausea and vomiting. Pain in the abdomen. Weight loss. Ulcers in the mouth and white patches in the mouth (candidiasis). Fever. Coughing up blood or vomiting blood. Stool that is black, tarry, or bright red. How is this diagnosed? This condition may be diagnosed based on your medical history and a physical exam. You may also have other tests, including: A test to examine your esophagus and stomach with a small flexible tube with a camera (endoscopy). A test that measures the acidity level in your esophagus. A test that measures how much pressure is on your esophagus. A barium swallow or modified barium swallow to show the shape, size, and functioning of your esophagus. Allergy tests. How is this treated? Treatment for this condition depends on the cause of your esophagitis. In some cases, steroids or other medicines may be given to help relieve your symptoms or to treat the underlying cause of your condition. You may have to make some lifestyle changes, such as: Avoiding alcohol. Quitting any products that contain nicotine or tobacco. These products include cigarettes, chewing tobacco, and vaping devices, such as e-cigarettes. If you need help quitting, ask your health care provider. Changing your diet. Exercising. Changing your sleep habits and your sleep environment. Follow these instructions at home: Medicines Take ojie-pyu-envbyrk and prescription medicines only as told by your health care provider. Do not take aspirin, ibuprofen, or other NSAIDs unless your health care provider told you to do so. If you have trouble taking pills: ?Use a pill splitter to decrease the size of the pill. This will decrease the chance of the pill getting stuck or injuring your esophagus. ?Drink water after you take a pill. Eating and drinking Avoid foods and drinks that seem to make your symptoms worse. Follow a diet as recommended by your health care provider. This may involve avoiding foods and drinks such as: ?Coffee and tea, with or without caffeine. ?Drinks that contain alcohol. ?Energy drinks and sports drinks. ?Carbonated drinks or sodas. ?Chocolate and cocoa. ?Peppermint and mint flavorings. ?Garlic and onions. ?Horseradish. ?Spicy and acidic foods, including peppers, chili powder, lackey powder, vinegar, hot sauces, and barbecue sauce. ?Nuckolls fruit juices and citrus fruits, such as oranges, romain, and limes. ?Tomato-based foods, such as red sauce, chili, salsa, and pizza with red sauce. ?Fried and fatty foods, such as donuts, brit[place] islander fries, potato chips, and high-fat dressings. ?High-fat meats, such as hot dogs and fatty cuts of red and white meats, such as rib eye steak, sausage, ham, and cotton. ?High-fat dairy items, such as whole milk, butter, and cream cheese. Lifestyle Eat small, frequent meals instead of large meals. Avoid drinking large amounts of liquid with your meals. Avoid eating meals during the 2 3 hours before bedtime. Avoid lying down right after you eat. Do not exercise right after you eat. Do not use any products that contain nicotine or tobacco. These products include cigarettes, chewing tobacco, and vaping devices, such as e-cigarettes. If you need help quitting, ask your health careprovider. General instructions Pay attention to any changes in your symptoms. Let your health care provider know about them. Wear loose-fitting clothing. Do not wear anything tight around your waist that causes pressure on your abdomen. Raise (elevate) the head of your bed about 6 inches (15 cm). You may need to use a wedge to do this. Try relaxation strategies such as yoga, deep breathing, or meditation to manage stress. If you needhelp reducing stress, ask your health care provider. If you are overweight, reduce your weight to an amount that is healthy for you. Ask your health care provider for guidance about a safe weight loss goal. Keep all follow-up visits. This is important. Contact a health care provider if: You have new symptoms. You have unexplained weight loss. You have difficulty swallowing, or it hurts to swallow. You have wheezing or a cough that does not go away. Your symptoms do not improve with treatment. You have frequent heartburn for more than two weeks. Get help right away if: You have sudden severe pain in your arms, neck, jaw, teeth, or back. You suddenly feel sweaty, dizzy, or light-headed. You have chest pain or shortness of breath. You vomit and the vomit is green, yellow, or black, or it looks like blood or coffee grounds. Your stool is red, bloody, or black. You have a fever. You cannot swallow, drink, or eat. These symptoms may represent a serious problem that is an emergency. Do not wait to see if the symptoms will go away. Get medical help right away. Call your local emergency services (911 in the [place] Do not drive yourself to the hospital. Summary Esophagitis is inflammation of the esophagus. Most causes of esophagitis are not serious. Follow your health care provider's instructions about eating and drinking. Contact a health care provider if you have new symptoms, have weight loss, or coughing that does not stop. Get help right away if you have severe pain in the arms, neck, jaw, teeth, or back, or if you have chest pain, shortness of breath, or fever. This information is not intended to replace advice given to you by your health care provider. Make sure you discuss any questions you have with your health care provider. Document Revised: 08/20/2020 Document Reviewed: 08/20/2020 Make [employer] plate Patient Education 2022 [employer]. 10/07/2023 09:47:27 Colon Polyps Colon Polyps Colon polyps are tissue growths inside the colon, which is part of the large intestine. They are one of the types of polyps that can grow in the body. A polyp may be a round bump or a mushroom-shapedgrowth. You could have one polyp or more than one. Most colon polyps are noncancerous (benign). However, some colon polyps can become cancerous over time. Finding and removing the polyps early can help prevent this. What are the causes? The exact cause of colon polyps is not known. What increases the risk? The following factors may make you more likely to develop this condition: Having a family history of colorectal cancer or colon polyps. Being older than 45 years of age. Being younger than 45 years of age and having a significant family history of colorectal cancer or colon polyps or a genetic condition that puts you at higher risk of getting colon polyps. Having inflammatory bowel disease, such as ulcerative colitis or Crohn's disease. Having certain conditions passed from parent to child (hereditary conditions), such as: ?Familial adenomatous polyposis (FAP). ?Segovia syndrome. ?Turcot syndrome. ?Peutz Jeghers syndrome. ?MUTYH-associated polyposis (MAP). Being overweight. Certain lifestyle factors. These include smoking cigarettes, drinking too much alcohol, not gettingenough exercise, and eating a diet that is high in fat and red meat and low in fiber. Having had childhood cancer that was treated with radiation of the abdomen. What are the signs or symptoms? Many times, there are no symptoms. If you have symptoms, they may include: Blood coming from the rectum during a bowel movement. Blood in the stool (feces). The blood may be bright red or very dark in color. Pain in the abdomen. A change in bowel habits, such as constipation or diarrhea. How is this diagnosed? This condition is diagnosed with a colonoscopy. This is a procedure in which a lighted, flexible scope is inserted into the opening between the buttocks (anus) and then passed into the colon to examine the area. Polyps are sometimes found when a colonoscopy is done as part of routine cancer screening tests. How is this treated? This condition is treated by removing any polyps that are found. Most polyps can be removed during a colonoscopy. Those polyps will then be tested for cancer. Additional treatment may be needed depending on the results of testing. Follow these instructions at home: Eating and drinking Eat foods that are high in fiber, such as fruits, vegetables, and whole grains. Eat foods that are high in calcium and vitamin D, such as milk, cheese, yogurt, eggs, liver, fish, and broccoli. Limit foods that are high in fat, such as fried foods and desserts. Limit the amount of red meat, precooked or cured meat, or other processed meat that you eat, such as hot dogs, sausages, cotton, or meat loaves. Limit sugary drinks. Lifestyle Maintain a healthy weight, or lose weight if recommended by your health care provider. Exercise every day or as told by your health care provider. Do not use any products that contain nicotine or tobacco, such as cigarettes, e- cigarettes, and chewing tobacco. If you need help quitting, ask your health care provider. Do not drink alcohol if: ?Your health care provider tells you not to drink. ?You are , may be , or are planning to become . If you drink alcohol: ?Limit how much you use to: ?0 1 drink a day for women. ?0 2 drinks a day for men. ?Know how much alcohol is in your drink. In the [place] one drink equals one 12 oz bottle of beer (355 mL), one 5 oz glass of wine (148 mL), or one 1 oz glass of hard liquor (44 mL). General instructions Take avcz-ttf-yhlzmju and prescription medicines only as told by your health care provider. Keep all follow-up visits. This is important. This includes having regularly scheduled colonoscopies. Talk to your health care provider about when you need a colonoscopy. Contact a health care provider if: You have new or worsening bleeding during a bowel movement. You have new or increased blood in your stool. You have a change in bowel habits. You lose weight for no known reason. Summary Colon polyps are tissue growths inside the colon, which is part of the large intestine. They are one type of polyp that can grow in the body. Most colon polyps are noncancerous (benign), but some can become cancerous over time. This condition is diagnosed with a colonoscopy. This condition is treated by removing any polyps that are found. Most polyps can be removed during a colonoscopy. This information is not intended to replace advice given to you by your health care provider. Make sure you discuss any questions you have with your health care provider. Document Revised: 05/30/2020 Document Reviewed: 05/30/2020 [employer] Patient Education 2022 [employer]. 10/07/2023 09:47:26 Colonoscopy, Care After Surgery [facility] ([facility]) Colonoscopy Care After Surgery Please read the instructions outlined below and refer to this sheet in the next few weeks. These discharge instructions provide you with general information on caring for yourself after you leave thehospital. Your doctor may also give you specific instructions. While your treatment has been planned according to the most current medical practices available, unavoidable complications occasionally occur. If you have any problems or questions after discharge, please call your doctor. ACTIVITY You may resume your regular activity, but move at a slower pace for the next 24 hours. Take frequent rest periods for the next 24 hours. Walking will help get rid of the air and reduce the bloated feeling in your abdomen (belly). No driving for 24 hours (because of the anesthesia (medicine) used during the test). You may shower. Do not sign any important legal documents or operate any machinery for 24 hours (because of the anesthesia used during the test). NUTRITION Drink plenty of fluids. You may resume your normal diet as instructed by your doctor. Begin with a light meal and progress to your normal diet. Heavy or fried foods are harder to digestand may make you feel nauseated (sick to your stomach). Avoid alcoholic beverages for 24 hours or as instructed. MEDICATIONS You may resume your normal medications unless your doctor tells you otherwise. WHAT YOU CAN EXPECT TODAY Some feelings of bloating in the abdomen. Passage of more gas than usual. Spotting of blood in your stool or on the toilet paper. FOLLOW-UP Your doctor will discuss the results of your test with you. SEEK IMMEDIATE MEDICAL ATTENTION IF: There is more than a spotting of blood in your stool. There is abdominal distention (your abdomen is swollen). There is vomiting. You have a temperature over 101.5 F. There is abdominal pain or discomfort that is severe or gets worse throughout the day. 10/07/2023 09:47:23 Endoscopy, Care After Procedure [facility] ([facility]) Endoscopy Care After Procedure Please read the instructions outlined below and refer to this sheet in the next few weeks. These discharge instructions provide you with general information on caring for [facility] Your doctor may also give you specific instructions. While your treatment has been planned according to the most current medical practices available, unavoidable complications occasionally occur. If you have any problems or questions after discharge, please call your doctor. ACTIVITY You may resume your regular activity but move at a slower pace for the next 24 hours. Take frequent rest periods for the next 24 hours. Walking will help expel (get rid of) the air and reduce the bloated feeling in your abdomen. No driving for 24 hours (because of the anesthesia (medicine) used during the test). You may shower. Do not sign any important legal documents or operate any machinery for 24 hours (because of the anesthesia used during the test). NUTRITION Drink plenty of fluids. You may resume your normal diet. Begin with a light meal and progress to your normal diet. Avoid alcoholic beverages for 24 hours or as instructed by your caregiver. MEDICATIONS You may resume your normal medications unless your caregiver tells you otherwise. WHAT YOU CAN EXPECT TODAY You may experience abdominal discomfort such as a feeling of fullness or gas pains. FOLLOW-UP Your doctor will discuss the results of your test with you. SEEK IMMEDIATE MEDICAL ATTENTION IF ANY OF THE FOLLOWING OCCUR: Excessive nausea (feeling sick to your stomach) and/or vomiting. Severe abdominal pain and distention (swelling). Trouble swallowing. Temperature over 100 F (37.8 C). Rectal bleeding or vomiting of blood. Document Released: 09/23/2004 Document Re-Released: 08/03/2006 ExitCare Patient Information 2009 [employer]. Follow Up Care 09/23/2023 15:01:21 With:Katherine Srinivasan Address: [facility] [address], [address] [place] [address]- [phone] Business (1) When:1 to 2 weeks [facility] 08-14-2024 NoteProgress Note-Physician Patient: CARLINE EMERSON Age: 33 years Sex: Female : 1990 Associated Diagnoses: None Author: Gagandeep Sullivan DO Postoperative Information Postoperative disposition: Postoperative disposition: To PACU. Anesthetic utilized: General. Health Status Allergies: Allergic Reactions (Selected) Severity Not Documented Penicillin- Unknown. Current medications: (Selected) Inpatient Medications Ordered Lactated Ringers IV Flor 1000 mL 1,000 mL: 1,000 mL, IV, 100 mL/hr, Routine, Start date 10/07/23 8:19:00 EDT, 10 hour(s), Total volume (mL): 1,000, 171.5 kg, 2.93, m2 Sodium Chloride 0.9% IV Flor 1000 mL 1,000 mL: 1,000 mL, IV, 20 mL/hr, Routine, Start date 10/07/23 6:51:00 EDT, 50 hour(s), Total volume (mL): 1,000, 171.5 kg, 2.93, m2 Prescriptions Prescribed Farxiga 10 mg oral tablet: 10 mg = 1 tab(s), Oral, Daily, # 90 tab(s), Refills(s) 1, Pharmacy: [facility] #[id number], 180.3, cm, 06/15/23 16:35:00 EDT, Height/Length Dosing, 174.2, kg, 06/15/23 16:35:00 EDT, Weight Dosing Knee Brace: Knee Brace, See Instructions, 1 EA, 0, L knee brace for knee pain, [facility] Supply, 180.3, cm, 09/16/22 9:08:00 EDT, Height/Length Dosing, 216.4, kg, 09/16/22 9:08:00 EDT, Weight Dosing levothyroxine 125 mcg (0.125 mg) Tab: See Instructions, TAKE 1 TABLET BY MOUTH EVERY DAY, # 90 tab(s), Refills(s) 3, Pharmacy: [id number], 180.3, cm, 07/21/23 15:39:00 EDT, Height/Length Dosing,175, kg, 07/21/23 15:39:00 EDT, Weight Dosing losartan 50 mg Tab: See Instructions, TAKE 1 TABLET BY MOUTH EVERY DAY, # 90 tab(s), Refills(s) 1, Pharmacy: [id number], 180.3, cm, 07/21/23 15:39:00 EDT, Height/Length Dosing, 175, kg, 07/20/2414:39:00 EDT, Weight Dosing metformin 500 mg Tab: See Instructions, TAKE 1 TABLET BY MOUTH TWICE A DAY, # 180 tab(s), Refills(s) 0, Pharmacy: [id number], 180.3, cm, 12/26/22 14:31:00 EDT, Height/Length Dosing, 184, kg, 12/26/22 14:31:00 EDT, Weight Dosing metoprolol succinate 25 mg ER Tab: 25 mg = 1 tab(s), Oral, Daily, # 90 tab(s), Refills(s) 0, [id number], 180.3, cm, 07/21/23 15:39:00 EDT, Height/Length Dosing, 175, kg, 07/21/23 15:39:00 EDT, Weight Dosing omeprazole 40 mg Cap-DR: See Instructions, TAKE 1 CAPSULE BY MOUTH TWICE A DAY, # 180 cap(s), Refills(s) 0, Pharmacy: [id number], 180.3, cm, 03/16/23 16:21:00 EST, Height/Length Dosing, 173.2, kg, 03/16/23 16:21:00 EST, Weight Dosing phentermine 37.5 mg Tab: 37.5 mg = 1 tab(s), Oral, Daily, # 30 tab(s), Refills(s) 0, [id number], 180.3, cm, 09/08/23 15:35:00 EDT, Height/Length Dosing, 172.3, kg, 09/08/23 15:35:00EDT, Weight Dosing venlafaxine 150 mg Cap-ER: 150 mg = 1 cap(s), Oral, Daily, # 90 cap(s), Refills(s) 3, [id number], 180.3, cm, 06/15/23 16:35:00 EDT, Height/Length Dosing, 174.2, kg, 06/15/23 16:35:00 EDT, Weight Dosing, Home Medications (9) Active Farxiga 10 mg oral tablet 10 mg = 1 tab(s), Oral, Daily Knee Brace See Instructions levothyroxine 125 mcg (0.125 mg) Tab See Instructions losartan 50 mg Tab See Instructions metformin 500 mg Tab See Instructions metoprolol succinate 25 mg ER Tab 25 mg = 1 tab(s), Oral, Daily omeprazole 40 mg Cap-DR See Instructions phentermine 37.5 mg Tab 37.5 mg = 1 tab(s), Oral, Daily venlafaxine 150 mg Cap-ER 150 mg = 1 cap(s), Oral, Daily Problem list: All Problems Achilles tendonitis / SNOMED CT 04263513 / Confirmed Adjustment disorder with depressed mood in remission / SNOMED CT 3569531746 / Confirmed Anal skin tag / SNOMED CT 066890117 / Confirmed BMI 50.0-59.9, adult / SNOMED CT 6687435843 / Confirmed Carpal tunnel syndrome / SNOMED CT 39292681 / Confirmed Chronic GERD / SNOMED CT 723253538 / Confirmed Excessive dietary caloric intake / SNOMED CT 346738952 / Confirmed Family hx of colon cancer / SNOMED CT 520125661 / Confirmed Gastroesophageal reflux disease without esophagitis / ICD-10-CM K21.9 / Confirmed Hemorrhoids / SNOMED CT 486572072 / Confirmed Hypothyroidism / SNOMED CT 75460929 / Confirmed Ingrown hair / SNOMED CT 33192770 / Confirmed Insomnia / SNOMED CT 916688896 / Confirmed Metabolic syndrome / SNOMED CT 227401070 / Confirmed Migraines / SNOMED CT 15241845 / Confirmed Morbid obesity / SNOMED CT 480315060 / Confirmed WATTERS (nonalcoholic steatohepatitis) / SNOMED CT 8433816031 / Confirmed Obesity due to excess calories / SNOMED CT 6525101606 / Confirmed Obstructive sleep apnea / SNOMED CT 848644579 / Confirmed Pelvic floor dysfunction / SNOMED CT 2105425351 / Confirmed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 [address] Personnel Name: Thiago Gambino MD Address: Address: [address] [place] [address] Personnel Name: Thiago Gambino MD Address: Address: [address] [place] [address] Personnel Name: Thiago Gambino MD Address: Address: [address] [place] [address] FOR RECORDS PERTAINING TO PATIENTS WHO ARE [...] BE BASED ON THE PRIMARY CLINICAL RECORDS. [facility]. provides no warranty or guarantee of the accuracy or completeness of information in this document.
--- NOTE | 2024-10-15 19:14 | ED.DENTAL1 ---
HPI - Dental/Oral General Chief complaint: Dental/Oral Stated complaint: DENTAL ISSUE Time Seen by Provider: 10/15/24 18:52 Source: patient Mode of arrival: walk-in Limitations: no limitations History of Present Illness HPI Narrative: 34-year-old female presents with pain in the right lower wisdom tooth, which has a history of caries and prior fracture. The pain is localized and has been ongoing, but there is no swelling, fever, or other systemic symptoms. She is scheduled for wisdom tooth extraction on Thursday. She denies any difficulty swallowing, trismus, or signs of deep space infection. No cervical lymphadenopathy or signs of oral infection such as purulence or erythema. She is currently taking clindamycin as prescribed by her dentist. She reports using ibuprofen for pain management and was advised to use Tendoy if needed for increased pain. She denies any recent use of narcotics, and an OARRS report shows no recent history of narcotic prescriptions. She has no other significant medical history or complaints at this time. Teeth map:  1. Related Data Home Medications ?Medication ?Instructions ?Recorded ?Confirmed buspirone 5 mg tablet 5 mg PO BID 01/19/23 03/08/23 dapagliflozin propanediol 5 mg 5 mg PO DAILY 01/19/23 03/08/23 tablet (Farxiga) levothyroxine 100 mcg capsule 100 mcg PO DAILY 01/19/23 03/08/23 losartan 50 mg tablet 50 mg PO DAILY 01/19/23 03/08/23 metformin 500 mg tablet 500 mg PO BID 01/19/23 03/08/23 metoprolol succinate 25 mg 25 mg PO DAILY 01/19/23 03/08/23 tablet,extended release 24 hr omeprazole 40 mg capsule,delayed 40 mg PO BID 01/19/23 03/08/23 release phentermine 37.5 mg capsule 37.5 mg PO DAILY 01/19/23 03/08/23 (Adipex-P) trazodone 50 mg tablet 50 mg PO DAILY 01/19/23 03/08/23 venlafaxine 150 mg 150 mg PO DAILY 01/19/23 03/08/23 capsule,extended release 24 hr (Effexor XR) Previous Rx's ?Medication ?Instructions ?Recorded naproxen 250 mg tablet 250 mg PO Q12H PRN pain #20 tabs 04/18/24 hydrocodone 5 mg-acetaminophen 325 1 tab PO Q6H PRN pain #7 tabs 10/15/24 mg tablet ibuprofen 600 mg tablet 600 mg PO Q8H PRN pain #20 tabs 10/15/24 Allergies Allergy/AdvReac Type Severity Reaction Status Date / Time amoxicillin Allergy Severe RASH Verified 03/08/23 02:59 Penicillins Allergy Rash Verified 03/08/23 02:59 PFSH PFSH Medical History (Updated 10/15/24 @ 19:18 by PATRICK PHIPPS) Anxiety ?F41.9 - Anxiety disorder, unspecified (ICD-10) Umbilical hernia ?K42.9 - Umbilical hernia without obstruction or gangrene (ICD-10) Diabetes mellitus ?E11.9 - Type 2 diabetes mellitus without complications (ICD-10) Hypertension ?I10 - Essential (primary) hypertension (ICD-10) Sleep apnea ?G47.30 - Sleep apnea, unspecified (ICD-10) Insomnia ?G47.00 - Insomnia, unspecified (ICD-10) Hypothyroidism ?E03.9 - Hypothyroidism, unspecified (ICD-10) Acid reflux ?K21.9 - Gastro-esophageal reflux disease without esophagitis (ICD-10) Carpal tunnel syndrome, bilateral ?G56.03 - Carpal tunnel syndrome, bilateral upper limbs (ICD-10) Anal skin tag ?K64.4 - Residual hemorrhoidal skin tags (ICD-10) Surgical History (Updated 01/19/23 @ 09:23 by Sera Bowman) History of tonsillectomy and adenoidectomy ?Z90.89 - Acquired absence of other organs (ICD-10) Family History (Updated 01/19/23 @ 09:25 by Sera Bowman) Mother Family history of hypertension Father Colon cancer Other Breast cancer Family history of diabetes mellitus Social History (Updated 01/19/23 @ 09:26 by Sera Bowman) Within the past year, how often did you have a drink containing alcohol: never Score interpretation: A score less than 3 is consistent with normal alcohol consumption. 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 Vital Signs: Within normal limits. HEENT: Normal phonation. Right lower third molar with visible caries and prior fracture of tooth enamel. No intraoral or facial swelling. No fluctuance, erythema, or purulence. No swelling under the tongue. No trismus. No cervical lymphadenopathy. Cardiovascular: Regular rate and rhythm, no murmurs. Respiratory: Lungs clear to auscultation bilaterally, no respiratory distress. Neurologic: Alert and oriented, normal speech, no focal deficits. Constitutional Vital Signs, click to edit/add: Last Vital Signs Temp 98.4 F 10/15/24 18:32 Pulse 81 10/15/24 18:32 Resp 18 10/15/24 18:32 BP 116/81 10/15/24 19:24 Pulse Ox 99 10/15/24 18:32 O2 Del Method Room Air 10/15/24 18:32 Course Vital Signs Vital signs: Vital Signs Temperature 98.4 F 10/15/24 18:32 Pulse Rate 81 10/15/24 18:32 Respiratory Rate 18 10/15/24 18:32 Blood Pressure 164/108 H 10/15/24 18:32 Pulse Oximetry 99 10/15/24 18:32 Oxygen Delivery Method Room Air 10/15/24 18:32 Temperature 98.4 F 10/15/24 18:32 Pulse Rate 81 10/15/24 18:32 Respiratory Rate 18 10/15/24 18:32 Blood Pressure 116/81 10/15/24 19:24 Pulse Oximetry 99 10/15/24 18:32 Oxygen Delivery Method Room Air 10/15/24 18:32 MDM - Dental/Oral MDM Narrative Medical decision making narrative: 34-year-old female presents with right lower wisdom tooth pain, which has a known history of caries and prior fracture. She is scheduled for wisdom tooth extraction on Thursday. On exam, there is no swelling, trismus, fluctuance, or signs of deep space infection. Patient is phonating normally with no cervical lymphadenopathy. Vitals are normal, and heart and lung exams are unremarkable. Given the absence of systemic symptoms or concerning findings, this appears to be localized dental pain. Patient is currently on clindamycin prescribed by her dentist. After discussion, she was advised to continue the clindamycin, use ibuprofen as first-line pain control, and Tendoy as needed, with guidance on appropriate narcotic use. OARRS report was reviewed and shows no recent history of narcotic prescriptions. Dental wax use was also discussed to minimize irritation from the broken tooth. Strict return precautions were given, and she was advised to return if symptoms worsen, including swelling, fever, difficulty swallowing, or increased pain. Discharge Plan Discharge Chief Complaint: Dental/Oral Clinical Impression: Pain due to dental caries, Broken tooth Patient Disposition: Home, Self-Care Time of Disposition Decision: 19:18 Condition: Good Prescriptions / Home Meds: New hydrocodone-acetaminophen 5-325 mg tablet 1 tab PO Q6H PRN (Reason: pain) Qty: 7 0RF ibuprofen 600 mg tablet 600 mg PO Q8H PRN (Reason: pain) Qty: 20 0RF No Action phentermine [Adipex-P] 37.5 mg capsule 37.5 mg PO DAILY Rx Instructions: must administer 30 minutes before or 1-2 hours after breakfast buspirone 5 mg tablet 5 mg PO BID Patient Comments: takes PRN Farxiga 5 mg tablet 5 mg PO DAILY levothyroxine 100 mcg capsule 100 mcg PO DAILY losartan 50 mg tablet 50 mg PO DAILY metformin 500 mg tablet 500 mg PO BID metoprolol succinate 25 mg tablet extended release 24 hr 25 mg PO DAILY omeprazole 40 mg capsule,delayed release(DR/EC) 40 mg PO BID trazodone 50 mg tablet 50 mg PO DAILY venlafaxine [Effexor XR] 150 mg capsule,extended release 24hr 150 mg PO DAILY naproxen 250 mg tablet 250 mg PO Q12H PRN (Reason: pain) Qty: 20 0RF Print Language: [place] Instructions: Toothache (ED) Additional Instructions: See dental wax as discussed. Up with dentist on Thursday as scheduled make sure to complete your antibiotics. Referrals: HARPREET PRIDE [Primary Care Provider, EVS MANAGER] - 1 week Discharge Date/Time: 10/15/24 19:44
[2024-10-15 19:24] VITALS: BP 116/81
[2024-10-15] MEDS: HYDROCODONE/ACET 5-325 MG TABLET 1 TAB PO ×2 (19:40→19:41)
== END 2024-10-15 19:44 | disposition home or self-care (01) ==
PROVIDERS: Emergency Provider Student in an Organized Health Care Education/Training Program; PCP Nurse Practitioner
DX: K02.9 Dental caries, unspecified (principal); K08.89 Other specified disorders of teeth and supporting structures; F17.290 Nicotine dependence, other tobacco product, uncomplicated; S02.5XXA Fracture of tooth (traumatic), initial encounter for closed fracture
CPT/HCPCS: 99283